=== PATIENT | male | born 1935 | race Caucasian/White ===

== ENCOUNTER → 2018-01-10 15:56 | Outpatient (CLI) | payer MEDICARE, OTHER, SELFPAY ==
--- NOTE | 2018-01-10 16:14 | RAD_ITS ---
STUDY: X-RAY CHEST REASON FOR EXAM: Male, 82 years old. Cough and congestion TECHNIQUE: Frontal and lateral views of the chest were obtained. COMPARISON: June 29, 2017 FINDINGS: The lungs are hyperinflated. Surgical changes are again seen in the mid and upper left lung. There are new ill-defined nodular densities in the mid left lung and right lung base. There is no demonstrated pleural abnormality. The cardiac silhouette is normal in size. There are surgical clips in the mediastinum. Sternotomy wires are present. Normal visualized pulmonary arteries. There is atherosclerotic calcification of the thoracic aorta. There are diffuse degenerative changes of the visualized spine. There are surgical changes in the cervical spine. There are degenerative changes in both shoulders. There is no demonstrated abnormality of the visualized upper abdomen. RAD/Chest PA and Lateral IMPRESSION: There is no evidence of focal consolidation or pleural effusion. There are indistinct nodular opacities in the mid left lung and right lung base which are not evident on the prior study. These are indeterminate. There is stable COPD. Electronically Signed: Gladis Peres MD at 17:23 EST Tel Direct: [phone], Service support ,
[2018-01-10 17:57] LABS: Absolute Lymphocyte Count 32.68 X10^3/ul (0.83-4.51); Absolute Neutrophil Count 5.2 X10^3/uL (2.0-7.7); Anion Gap 10 (5-15); BUN 20 mg/dL (7-18); BUN/Creat Ratio 20.6 RATIO (10-20); Basophil# 0.03 X10^3/uL; Basophil% 0.1 % (0-1); Calcium,Total 9.2 mg/dL (8.5-10.1); Chloride 98 mmol/L (98-107); Creatinine, Serum 0.97 mg/dL (0.70-1.30); EST Glomerular Filtration Rate 79 mL/min (>60); Eosinophil# 0.08 X10^3/uL; Eosinophils% 0.2 % (0-5); Est Glom Filt Rate - Afr Amer 95 mL/min (>60); Glucose 215 mg/dL (74-106); Hematocrit 35.6 % (40-54); Hemoglobin 11.5 g/dl (13.0-16.5); Lymphocyte # 32.68 X10^3/ul (4.0); Lymphocyte % 83.7 % (19-41); Mean Corp Hgb Conc 32.3 g/gl (32-36); Mean Corpuscular Hgb 31.1 pg (27.0-32.0); Mean Corpuscular Volume 96.2 fL (80-94); Mean Platelet Vol. 9.6 fl (6.2-12.0); Monocyte# 0.97 X10^3/uL; Monocyte% 2.5 % (0-10); Neutrophil # 5.23 X10^3/uL (2.7-7.7); Neutrophil % 13.4 % (47-70); Platelet Count 264 K/mm3 (150-450); Potassium 4.1 mmol/L (3.5-5.1); RBC Distribution Width CV 15.2 % (11.6-14.6); RBC Distribution Width SD 53.3 fl (35.1-43.9); Sodium Level 135 mmol/L (136-145)
[2018-01-10 18:01] LABS: Differential Indicated SCAN CRITERIA MET; POSITIVE COUNT YES; POSITIVE DIFFERENTIAL YES; POSITIVE MORPHOLOGY YES
[2018-01-12 14:50] LABS: Pathologist Review Reviewed
== END ==
PROVIDERS: Family Provider Family Medicine Geriatric Medicine; PCP Family Medicine Geriatric Medicine; Visit Provider Family Medicine Geriatric Medicine
DX: E86.0 Dehydration (principal); R68.83 Chills (without fever)
CPT/HCPCS: 36415; 71046; 80048; 85025; 87633

== ENCOUNTER → 2018-01-11 09:27 | Outpatient (CLI) | payer MEDICARE, OTHER, SELFPAY ==
--- NOTE | 2018-01-11 09:30 | CT_ITS ---
STUDY: CT CHEST WITHOUT CONTRAST REASON FOR EXAM: Male, 82 years old. Follow-up of pulmonary mass. RADIATION DOSAGE (If Supplied By Facility): CTDIvol = ( 8.98 ) mGy, DLP = ( 368.12 ) mGycm TECHNIQUE: Transaxial imaging was performed without the administration of intravenous contrast material. Multiplanar coronal and sagittal images were reformatted. Individualized dose optimization techniques were used for this CT. COMPARISON: CT of the chest dated January 27, 2017. FINDINGS: The patient has had a sternotomy. There is hyperinflation of the lungs consistent with chronic obstructive lung disease (COPD). There is a focal opacity within the right lower lobe that measures approximately 1.7 cm in greatest dimension. There is a second nodular area within the right lower lobe measuring up to 1.5 cm in greatest dimension. These are new since the previous CT. These could be neoplastic or postinflammatory. There are patchy lucencies throughout both lungs probably related to centrilobular emphysema. Curvilinear opacities are visible in the left lower lobe that are probably related to pulmonary fibrosis. There are nodular opacities in the left lower lobe that may represent reticulonodular interstitial thickening. This is also new since the previous CT. There are nodular areas in the lingula that may be associated with some bronchiectasis. There is a spiculated nodule left upper lobe measuring 10.5 mm in greatest dimension. There is no demonstrated pleural abnormality. There are calcifications of the coronary arteries. There are multiple prominent mediastinal lymph nodes. A precarinal node is partially calcified. Normal hilar regions. There is prominence of the pulmonary hilar arteries without peripheral pulmonary vascular congestion, suggesting pulmonary hypertension. There is atherosclerotic calcification of the aortic arch with tortuosity and elongation of the aortic arch and descending thoracic aorta. Maximum transverse dimension of ascending thoracic aorta measures approximately 3.9 cm. There is increased thoracic kyphosis. There is multilevel thoracic spondylosis. Patient has had a sternotomy. Is an exophytic cyst arising from the posterior cortex of the left kidney measuring approximately 1.7 cm in greatest dimension. CT/Chest without Contrast IMPRESSION: 1. Multiple nodular opacities visible in the right lower lobe, and left upper lobe. These are new since the previous study. 2. Reticulonodular interstitial thickening in left lower lobe may be the result of inflammatory process such as atypical mycobacterial infection. 3. COPD. 4. Sequela of coronary artery vascular disease. Electronically Signed: Ana Hickman MD at 10:27 EST , Service support ,
== END ==
PROVIDERS: Family Provider Family Medicine Geriatric Medicine; PCP Family Medicine Geriatric Medicine; Visit Provider Family Medicine Geriatric Medicine
DX: R91.8 Other nonspecific abnormal finding of lung field (principal); J44.9 Chronic obstructive pulmonary disease, unspecified
CPT/HCPCS: 71250

== ENCOUNTER → 2018-01-23 07:11 | Outpatient (CLI) | payer MEDICARE, OTHER, SELFPAY ==
--- NOTE | 2018-01-23 07:00 | PET_ITS ---
EXAMINATION: FDG PET CT INDICATIONS: An 82-year-old male with reported history of pulmonary nodularity presenting for restaging examination. COMPARISON EXAMINATION: CT of the chest report dated 01/11/18, previous FDG PET CT study dated 05/29/16. INDEX LESION SIZE SUV INTERPRETATION NEW: Left lower hemithorax pulmonary parenchyma, left lower lobe periaortic 5.8 mm (frame 175) 3.2 Fulfills quantitative criteria for viable neoplasm, definitive histopathologic analysis is recommended PREVIOUS: Heterogeneous left mid posterior lung field, left lower lobe Demonstrates metabolic resolution on the current examination NEW: Bilateral hemithorax pulmonary parenchyma-additional 1.7 (max) Quantitative criteria for viable neoplasm are not fulfilled TECHNIQUE: Following the intravenous administration of 12.89 mCi of F-18 deoxyglucose via the right antecubital fossa, multiplanar image acquisitions of the neck, chest, abdomen and pelvis to level of mid thigh, obtained at one hour post radiopharmaceutical administration contemporaneously interpreted with the current CT of the neck, chest, abdomen and pelvis to level of mid thigh, dated 01/23/[address] of the chest report dated 01/11/18, previous FDG PET CT study dated 05/29/16 reveal: SERUM GLUCOSE LEVEL: 70 mg/dl. HEIGHT: 72 inches. WEIGHT: 140 lbs. FINDINGS: 1. Several foci of increased glucose metabolism are manifest in the left hemithorax pulmonary parenchyma, left lower posteromedial lung zone, periaortic in location, left lower lobe. The calculated maximum standard uptake value is 3.2. The maximal axial diameter of the corresponding parenchymal density on review of CT of the thorax dated 01/23/18 is 5.8 mm. 2. Additional foci of increased glucose concentration are newly apparent in the right and left lung francisco rendering a calculated maximum standard uptake value of 1.7. Quantitative criteria for viable neoplasm are not fulfilled. 3. Normal physiologic distribution of the radiopharmaceutical is apparent in the hepatic (2.2/2.3) and splenic parenchyma, both renal units, bladder and visualized intestinal tract. There is uniform distribution of the radiopharmaceutical concentration compared on the cerebellar hemispheres and cerebral cortex. Diffuse intestinal tract activity is noted throughout all four quadrants of the abdominal-pelvic retroperitoneum, mesentery consistent with normal physiologic distribution of the radiopharmaceutical. The previous identified heterogeneous enhanced glucose metabolism manifest in the left lower posterior lung field, left lower lobe described on the FDG PET study dated 05/29/16 is not apparent on the current examination. Pertinent CT findings are as follows. CHEST: Atherosclerotic calcification is defined in the thoracic aorta without evidence of dilatation, aneurysm formation. Emphysematous change is noted in the bilateral upper lung zones. Additional parenchymal densities defined in the right-left hemithorax demonstrate minimally increased glucose metabolism as previously described. Atherosclerotic calcification is defined in the thoracic aorta without evidence of dilatation, aneurysm formation. Coronary arterial calcification is observed. Right-left subcentimeter axillary soft tissue densities reveal no evidence of facilitated glucose metabolism. Ventricular pacemaker placement is defined. Scattered mediastinal soft tissue densities demonstrate calcification. ABDOMEN AND PELVIS: Atherosclerotic calcification is defined in the abdominal aorta without evidence of dilatation, aneurysm formation. Pelvic arterial calcification is defined. The prostate gland demonstrates no apparent evidence of increased glucose metabolism. SKELETAL: Degenerative changes defined in the cervical, thoracic and lumbar spine demonstrate no evidence for glucose hypermetabolism. IMPRESSION: 1. Focal increased glucose concentration newly defined in the left lower posteromedial lung zone, left lower lobe adjacent to the descending thoracic aorta may warrant histopathologic investigation secondary to the quantitative degree of uptake. (Fonseca et al, Annals of Internal Medicine, 138:724, 2003). 2. Additional foci of increased glucose concentration manifest in the right and left hemithorax pulmonary parenchyma do not fulfill quantitative criteria for viable neoplasm. (Fonseca et al, Annals of Internal Medicine, 138:724, 2003). 3. Metabolic and/or anatomic stability may be ensured in the remaining bilateral hemithorax pulmonary parenchymal abnormalities with repeat FDG PET study and/or CT of the thorax in three months. (Xiu, Journal of Nuclear Medicine 45:88, P2004. Дмитрий, Seminars in Thoracic and Cardiovascular Surgery 14:292, 2002). 4. There interim metabolic resolution of the prior defined left lower posterior lung zone, left lower lobe hypermetabolic abnormality. 5. Overall compared to the previous FDG PET-CT study dated 05/29/2016, the newly identified left lower lobe hypermetabolic abnormality may warrant histopathologic analysis as described above. Electronic Signature Neymar Blevins D.O. Electronically Signed: Neymar Blevins DO at 22:39 EST Tel , Service support , EXAMINATION: FDG PET CT INDICATIONS: An 82-year-old male with reported history of pulmonary nodularity presenting for restaging examination. COMPARISON EXAMINATION: CT of the chest report dated 01/11/18, previous FDG PET CT study dated 05/29/16. INDEX LESION SIZE SUV INTERPRETATION NEW: Left lower hemithorax pulmonary parenchyma, left lower lobe periaortic 5.8 mm (frame 175) 3.2 Fulfills quantitative criteria for viable neoplasm, definitive histopathologic analysis is recommended PREVIOUS: Heterogeneous left mid posterior lung field, left lower lobe Demonstrates metabolic resolution on the current examination NEW: Bilateral hemithorax pulmonary parenchyma-additional 1.7 (max) Quantitative criteria for viable neoplasm are not fulfilled TECHNIQUE: Following the intravenous administration of 12.89 mCi of F-18 deoxyglucose via the right antecubital fossa, multiplanar image acquisitions of the neck, chest, abdomen and pelvis to level of mid thigh, obtained at one hour post radiopharmaceutical administration contemporaneously interpreted with the current CT of the neck, chest, abdomen and pelvis to level of mid thigh, dated 01/23/[address] of the chest report dated 01/11/18, previous FDG PET CT study dated 05/29/16 reveal: SERUM GLUCOSE LEVEL: 70 mg/dl. HEIGHT: 72 inches. WEIGHT: 140 lbs. FINDINGS: 1. Several foci of increased glucose metabolism are manifest in the left hemithorax pulmonary parenchyma, left lower posteromedial lung zone, periaortic in location, left lower lobe. The calculated maximum standard uptake value is 3.2. The maximal axial diameter of the corresponding parenchymal density on review of CT of the thorax dated 01/23/18 is 5.8 mm. 2. Additional foci of increased glucose concentration are newly apparent in the right and left lung francisco rendering a calculated maximum standard uptake value of 1.7. Quantitative criteria for viable neoplasm are not fulfilled. 3. Normal physiologic distribution of the radiopharmaceutical is apparent in the hepatic (2.2/2.3) and splenic parenchyma, both renal units, bladder and visualized intestinal tract. There is uniform distribution of the radiopharmaceutical concentration compared on the cerebellar hemispheres and cerebral cortex. Diffuse intestinal tract activity is noted throughout all four quadrants of the abdominal-pelvic retroperitoneum, mesentery consistent with normal physiologic distribution of the radiopharmaceutical. The previous identified heterogeneous enhanced glucose metabolism manifest in the left lower posterior lung field, left lower lobe described on the FDG PET study dated 05/29/16 is not apparent on the current examination. Pertinent CT findings are as follows. CHEST: Atherosclerotic calcification is defined in the thoracic aorta without evidence of dilatation, aneurysm formation. Emphysematous change is noted in the bilateral upper lung zones. Additional parenchymal densities defined in the right-left hemithorax demonstrate minimally increased glucose metabolism as previously described. Atherosclerotic calcification is defined in the thoracic aorta without evidence of dilatation, aneurysm formation. Coronary arterial calcification is observed. Right-left subcentimeter axillary soft tissue densities reveal no evidence of facilitated glucose metabolism. Ventricular pacemaker placement is defined. Scattered mediastinal soft tissue densities demonstrate calcification. ABDOMEN AND PELVIS: Atherosclerotic calcification is defined in the abdominal aorta without evidence of dilatation, aneurysm formation. Pelvic arterial calcification is defined. The prostate gland demonstrates no apparent evidence of increased glucose metabolism. SKELETAL: Degenerative changes defined in the cervical, thoracic and lumbar spine demonstrate no evidence for glucose hypermetabolism. PET/PET/CT Tumor Base -Thigh Init IMPRESSION: 1. Focal increased glucose concentration newly defined in the left lower posteromedial lung zone, left lower lobe adjacent to the descending thoracic aorta may warrant histopathologic investigation secondary to the quantitative degree of uptake. (Fonseca et al, Annals of Internal Medicine, 138:724, 2003). 2. Additional foci of increased glucose concentration manifest in the right and left hemithorax pulmonary parenchyma do not fulfill quantitative criteria for viable neoplasm. (Fonseca et al, Annals of Internal Medicine, 138:724, 2003). 3. Metabolic and/or anatomic stability may be ensured in the remaining bilateral hemithorax pulmonary parenchymal abnormalities with repeat FDG PET study and/or CT of the thorax in three months. (Xiu, Journal of Nuclear Medicine 45:88, P2004. Дмитрий, Seminars in Thoracic and Cardiovascular Surgery 14:292, 2002). 4. There interim metabolic resolution of the prior defined left lower posterior lung zone, left lower lobe hypermetabolic abnormality. 5. Overall compared to the previous FDG PET CT study dated 05/29/2016, the increase in glucose metabolism newly identified in the left lower posterior medial lung field warrants histopathologic evaluation. Electronic Signature Neymar Blevins D.O. Electronically Signed: Neymar Blevins DO at 22:44 EST Tel , Service support ,
== END ==
PROVIDERS: Family Provider Family Medicine Geriatric Medicine; PCP Family Medicine Geriatric Medicine; Visit Provider Family Medicine Geriatric Medicine
DX: R91.1 Solitary pulmonary nodule (principal)
CPT/HCPCS: 78815; A9552; A4216

== ENCOUNTER → 2018-01-24 11:40 | Outpatient (CLI) | payer MEDICARE, OTHER, SELFPAY ==
[2018-01-24 14:06] LABS: Absolute Lymphocyte Count 53.75 X10^3/ul (0.83-4.51); Absolute Neutrophil Count 5.8 X10^3/uL (2.0-7.7); Basophil# 0.07 X10^3/uL; Basophil% 0.1 % (0-1); Eosinophils% 0.2 % (0-5); Hematocrit 36.6 % (40-54); Hemoglobin 11.5 g/dl (13.0-16.5); Lymphocyte # 53.75 X10^3/ul (4.0); Lymphocyte % 87.6 % (19-41); Mean Corp Hgb Conc 31.4 g/gl (32-36); Mean Corpuscular Hgb 30.5 pg (27.0-32.0); Mean Corpuscular Volume 97.1 fL (80-94); Mean Platelet Vol. 9.7 fl (6.2-12.0); Monocyte# 1.46 X10^3/uL; Monocyte% 2.4 % (0-10); Neutrophil # 5.84 X10^3/uL (2.7-7.7); Neutrophil % 9.5 % (47-70); Platelet Count 196 K/mm3 (150-450); RBC Distribution Width CV 15.8 % (11.6-14.6); RBC Distribution Width SD 55.4 fl (35.1-43.9); Red Blood Count 3.77 M/mm3 (4.6-6.2)
[2018-01-24 14:08] LABS: Differential Indicated SCAN CRITERIA MET; POSITIVE COUNT YES; POSITIVE DIFFERENTIAL YES; POSITIVE MORPHOLOGY YES
[2018-01-24 14:22] LABS: ALB/GLOB Ratio 0.8 RATIO (0.9-2.4); AST(SGOT) 27 U/L (15-37); Alanine Aminotransfer ALT/SGPT 40 U/L (16-61); Albumin, Serum 3.3 g/dL (3.2-5.0); Alkaline Phosphatase 87 U/L (45-117); Anion Gap 10 (5-15); BUN 20 mg/dL (7-18); BUN/Creat Ratio 21.4 RATIO (10-20); Chloride 100 mmol/L (98-107); Creatinine, Serum 0.94 mg/dL (0.70-1.30); EST Glomerular Filtration Rate 82 mL/min (>60); Est Glom Filt Rate - Afr Amer 99 mL/min (>60); Globulin 4.4 g/dL (2.2-4.2); Glucose 155 mg/dL (74-106); Protein, Total 7.7 g/dL (6.4-8.2); Sodium Level 137 mmol/L (136-145); Thyroid Stim Hormone (TSH) 0.97 uIU/mL (0.358-3.74)
[2018-01-24 14:50] LABS: White Blood Count 61.3 K/mm3 (4.4-11.0)
[2018-01-25 15:16] LABS: Pathologist Review Reviewed
== END ==
PROVIDERS: Family Provider Family Medicine Geriatric Medicine; PCP Family Medicine Geriatric Medicine; Visit Provider Family Medicine Geriatric Medicine
DX: E11.9 Type 2 diabetes mellitus without complications (principal); I10 Essential (primary) hypertension
CPT/HCPCS: 36415; 80053; 84443; 85025

== ENCOUNTER 2018-02-01 12:14 | Emergency (ER) | payer MEDICARE, OTHER, SELFPAY ==
[2018-02-01 12:15] VITALS: BP 119/81; PULSE 150; RESP 24; TEMP 36.5; O2SAT 96; BMI 18.4
[2018-02-01 12:42] VITALS: BP 108/66; PULSE 155; RESP 17; O2SAT 97
--- NOTE | 2018-02-01 12:51 | EKG12_ITS ---
Test Reason : TACHYCARDIC Blood Pressure : / mmHG Vent. Rate : 154 BPM Atrial Rate : 153 BPM P-R Int : 000 ms QRS Dur : 074 ms QT Int : 278 ms P-R-T Axes : 000 072 049 degrees QTc Int : 445 ms Supraventricular tachycardia Nonspecific ST abnormality Abnormal ECG Confirmed by SHASTA ARREOLA, WILL ([id number]), copy editor JOSE ENRIQUE WILEY ([id number]) on 02/06/2018 1:59:51 PM Referred By: Confirmed By:WILL VEGAS MD
[2018-02-01 13:12] LABS: Absolute Lymphocyte Count 30.22 X10^3/ul (0.83-4.51); Absolute Neutrophil Count 3.8 X10^3/uL (2.0-7.7); Basophil# 0.03 X10^3/uL; Basophil% 0.1 % (0-1); Eosinophils% 0.3 % (0-5); Hematocrit 33.1 % (40-54); Hemoglobin 10.5 g/dl (13.0-16.5); Lymphocyte # 30.22 X10^3/ul (4.0); Lymphocyte % 87.2 % (19-41); Mean Corp Hgb Conc 31.7 g/gl (32-36); Mean Corpuscular Hgb 30.3 pg (27.0-32.0); Mean Corpuscular Volume 95.4 fL (80-94); Mean Platelet Vol. 9.6 fl (6.2-12.0); Monocyte# 0.46 X10^3/uL; Monocyte% 1.3 % (0-10); Platelet Count 139 K/mm3 (150-450); RBC Distribution Width CV 15.5 % (11.6-14.6); RBC Distribution Width SD 53.6 fl (35.1-43.9); Red Blood Count 3.47 M/mm3 (4.6-6.2)
[2018-02-01 13:13] LABS: Anion Gap 8 (5-15); BUN 22 mg/dL (7-18); BUN/Creat Ratio 23.7 RATIO (10-20); Calcium,Total 8.7 mg/dL (8.5-10.1); Chloride 102 mmol/L (98-107); Creatinine, Serum 0.93 mg/dL (0.70-1.30); EST Glomerular Filtration Rate 83 mL/min (>60); Est Glom Filt Rate - Afr Amer 100 mL/min (>60); Estimated Creatinine Clearance 52.51 ml/min; Glucose 166 mg/dL (74-106); Potassium 4.7 mmol/L (3.5-5.1); Sodium Level 135 mmol/L (136-145)
[2018-02-01 13:15] LABS: Differential Indicated SCAN CRITERIA MET; POSITIVE COUNT YES; POSITIVE DIFFERENTIAL YES; POSITIVE MORPHOLOGY NO; White Blood Count 34.7 K/mm3 (4.4-11.0)
[2018-02-01 13:20] VITALS: BP 114/77; PULSE 121; RESP 21; O2SAT 96
--- NOTE | 2018-02-01 13:28 | RAD_ITS ---
STUDY: X-RAY CHEST REASON FOR EXAM: Male, 82 years old. Tachycardia. History of chronic leukemia. TECHNIQUE: PA and lateral views of the chest. COMPARISON: Comparison is made with prior study dated January 10, 2018. FINDINGS: EKG electrode are seen. Hyperinflation. Stable increased markings in the lingular segment of the left upper lobe suggestive of scarring. Cc nodular densities in the left lung and right lower lobe have decreased in size. No new nodule is seen. There is no demonstrated pleural abnormality. Sternal cerclage wires and vascular clips are present from a prior sternotomy and coronary artery bypass graft procedure (CABG). Normal mediastinum and milo. Normal visualized pulmonary arteries. There is atherosclerotic calcification of the aortic arch with tortuosity. There are diffuse degenerative changes of the visualized thoracic spine. Prior laminectomy and fusion in the lower cervical spine. There is no demonstrated abnormality of the visualized soft tissue structures of the upper abdomen. RAD/Chest PA and Lateral IMPRESSION: Hyperinflation. Lingular scarring. The previously seen nodular densities have decreased in size. Electronically Signed: Anthony Boyd MD at 14:15 EST Tel [phone], Service support ,
--- NOTE | 2018-02-01 13:28 | EKG12_ITS ---
Test Reason : REPEAT Blood Pressure : / mmHG Vent. Rate : 117 BPM Atrial Rate : 117 BPM P-R Int : 142 ms QRS Dur : 082 ms QT Int : 324 ms P-R-T Axes : 063 070 045 degrees QTc Int : 451 ms Sinus tachycardia Otherwise normal ECG Confirmed by WILL VEGAS MD ([id number]), managing editor JOSE ENRIQUE WILEY ([id number]) on 02/06/2018 2:02:26 PM Referred By: ED Confirmed By:WILL VEGAS MD
[2018-02-01 13:37] LABS: Atypical Lymphocyte 1+ %
[2018-02-01 13:38] LABS: Differential Comment SCANNED
[2018-02-01 14:03] VITALS: BP 103/64; PULSE 117; RESP 20; O2SAT 95
[2018-02-01 15:00] VITALS: BP 121/68; PULSE 118; RESP 15; O2SAT 98
--- NOTE | 2018-02-01 15:09 | ED.VISSUMM ---
- ER Visit Summary Date of Service: 02/01/18 Chief Complaint: Sent from [facility] for rapid heart rate. History of Present Illness: The patient is a 82 M who has history of B-cell CLL and gammaglobulin anemia who was receiving IVIG when his heart rate became rapid. He complained of shortness of breath with the rapid heart rate. He denied any chest pressure or heaviness. He denies any leg pain, swelling discoloration. Does have history of PE. He does have cough which is nonproductive. He underwent lung resection for histoplasmosis and was receiving antifungal medication directed by Dr. Nano Cottrell. He does have history of coronary disease. There is also history of COPD, hypercholesterolemia, paroxysmal atrial fibrillation and iron deficiency anemia. He denies fever, chills night sweats. He does report weight loss. He denies any visual, ocular or auditory symptoms. He denies any GI, or musculoskeletal symptoms. He denies any rash or skin lesions. He does complain of generalized weakness. He denies bruising easily or any allergic reactions. Physical Examination: Patient's heart rate is 153 with rest rate of 22. Blood pressure is 135/75. He is not febrile nor is he hypoxic. Does appear pale. HEENT exam is remarkable for pale conjunctival. Lungs reveal rales throughout. Heart is rapid and regular. Abdomen is soft nontender. His lower extremity exam is unremarkable i.e. There is no asymmetry, swelling, discoloration, leg vein distention, palpable cords or tenderness along the distribution of the deep venous system. Neuro exam is nonfocal. Test Results: First EKG reveals a narrow complex tachycardia with a rate of 154. White count is 34.7 thousand with 87% lymphocytes secondary to his CLL. H&H 10.5 and 33.1. Electrode panel is remarkable for glucose 166 and BUN of 22. Two-view chest x-ray reveals chronic scarring hyperaeration unchanged from prior. Nodules were noted. Radiologist commented the nodules are smaller than prior. Emergency Department Course and Treatment: EKG was obtained which revealed a narrow complex tachycardia with a rate of 153. Repeat EKG was obtained after he coughed and he has now in a sinus tachycardia. Rate is 115. Because of his history of histoplasmosis cough and rales chest x-ray was obtained. Electrode panel was obtained since he is tachycardic. Treatment Plan: She now is a sinus rhythm chemically stable he will be discharged to return to the infusion center to continue his treatment. Disposition: Charge to infusion center Impression: 1. Narrow complex tachycardia, PSVT 2. History of B-cell chronic lymphocytic leukemia 3. History of gamma, anemia 4. History of COPD 5. History of coronary disease 6. History of paroxysmal H fibrillation This note was generated with [employer] dictation software. It may contain incorrect words, spelling, and punctuation that were not noted in review of the chart prior to signing ED Disposition - Plan for ED Patient: Disposition: Home or Assisted Living Chief Complaint: Palpitations Instructions: ED Tachycardia Pat PSVT Referrals: Chester Rojas Chi, MD [Primary Care Provider] - 3-5 Days
--- NOTE | 2018-02-01 15:16 | ED.DCSUM_ITS ---
- ER Visit Summary Date of Service: 02/01/18 Chief Complaint: Sent from [facility] center for rapid heart rate. History of Present Illness: The patient is a 82 M who has history of B-cell CLL and gammaglobulin anemia who was receiving IVIG when his heart rate became rapid. He complained of shortness of breath with the rapid heart rate. He denied any chest pressure or heaviness. He denies any leg pain, swelling discoloration. Does have history of PE. He does have cough which is nonproductive. He underwent lung resection for histoplasmosis and was receiving antifungal medication directed by Dr. Nano Cottrell. He does have history of coronary disease. There is also history of COPD, hypercholesterolemia, paroxysmal atrial fibrillation and iron deficiency anemia. He denies fever, chills night sweats. He does report weight loss. He denies any visual, ocular or auditory symptoms. He denies any GI, or musculoskeletal symptoms. He denies any rash or skin lesions. He does complain of generalized weakness. He denies bruising easily or any allergic reactions. Physical Examination: Patient's heart rate is 153 with rest rate of 22. Blood pressure is 135/75. He is not febrile nor is he hypoxic. Does appear pale. HEENT exam is remarkable for pale conjunctival. Lungs reveal rales throughout. Heart is rapid and regular. Abdomen is soft nontender. His lower extremity exam is unremarkable i.e. There is no asymmetry, swelling, discoloration, leg vein distention, palpable cords or tenderness along the distribution of the deep venous system. Neuro exam is nonfocal. Test Results: First EKG reveals a narrow complex tachycardia with a rate of 154. White count is 34.7 thousand with 87% lymphocytes secondary to his CLL. H &H 10.5 and 33.1. Electrode panel is remarkable for glucose 166 and BUN of 22. Two-view chest x-ray reveals chronic scarring hyperaeration unchanged from prior. Nodules were noted. Radiologist commented the nodules are smaller than prior. Emergency Department Course and Treatment: EKG was obtained which revealed a narrow complex tachycardia with a rate of 153. Repeat EKG was obtained after he coughed and he has now in a sinus tachycardia. Rate is 115. Because of his history of histoplasmosis cough and rales chest x-ray was obtained. Electrode panel was obtained since he is tachycardic. Treatment Plan: She now is a sinus rhythm chemically stable he will be discharged to return to the infusion center to continue his treatment. Disposition: Charge to infusion center Impression: 1. Narrow complex tachycardia, PSVT 2. History of B-cell chronic lymphocytic leukemia 3. History of gamma, anemia 4. History of COPD 5. History of coronary disease 6. History of paroxysmal H fibrillation This note was generated with [employer] dictation software. It may contain incorrect words, spelling, and punctuation that were not noted in review of the chart prior to signing ED Disposition - Plan for ED Patient: Disposition: Home or Assisted Living Chief Complaint: Palpitations Instructions: ED Tachycardia Pat PSVT Referrals: Chester Rojas Chi, MD [Primary Care Provider] - 3-5 Days
[2018-02-01 15:28] VITALS: BP 121/68; PULSE 117; RESP 18; O2SAT 96
--- NOTE | 2018-02-01 15:29 | ED.RN ---
REVIEWED D/C INSTRUCTIONS, FOLLOW UP CARE, AND S/S THAT WOULD WARRANT A RETURN TO THE ED WITH PT. PT VERBALIZED AN UNDERSTANDING AND DENIES FURTHER QUESTIONS FOR THIS RN. PT SKIN P/W/D, REPS EVEN AND UNLABORED, PT A&O X 3, NO DISTRESS NOTED. PT ASSISTED OUT OF ED BY VIDEO NETWORK ENGINEER FOR TRANSPORT TO INFUSION CENTER.
[2018-02-02 14:11] LABS: Pathologist Review Reviewed
== END 2018-02-01 15:31 | disposition home or self-care (01) ==
PROVIDERS: Emergency Provider Emergency Medicine; Family Provider Family Medicine Geriatric Medicine; PCP Family Medicine Geriatric Medicine
DX: I47.1 Supraventricular tachycardia (principal); C91.10 Chronic lymphocytic leukemia of B-cell type not having achieved remission; D50.9 Iron deficiency anemia, unspecified; J44.9 Chronic obstructive pulmonary disease, unspecified; I25.10 Atherosclerotic heart disease of native coronary artery without angina pectoris; I48.0 Paroxysmal atrial fibrillation; E78.00 Pure hypercholesterolemia, unspecified; B39.9 Histoplasmosis, unspecified; Z90.2 Acquired absence of lung [part of]; Z86.711 Personal history of pulmonary embolism; Z79.01 Long term (current) use of anticoagulants; Z79.899 Other long term (current) drug therapy; Z95.1 Presence of aortocoronary bypass graft; Z72.0 Tobacco use
CPT/HCPCS: 71046; 80048; 85025; 93005; 99282; A4216

== ENCOUNTER → 2018-02-08 16:04 | Outpatient (CLI) | payer MEDICARE, OTHER, SELFPAY ==
--- NOTE | 2018-02-08 17:21 | RAD_ITS ---
STUDY: X-RAY CHEST REASON FOR EXAM: Male, 82 years old. Bronchitis, shortness of breath and cough. TECHNIQUE: PA and lateral views of the chest. COMPARISON: February 01, 2018. FINDINGS: Patient has had a sternotomy. There is hyperinflation of the lungs consistent with chronic obstructive lung disease (COPD). There is no demonstrated pleural abnormality. Normal size heart. Normal mediastinum and milo. Normal visualized pulmonary arteries. There is atherosclerotic calcification of the aortic arch with tortuosity. There is demineralization of the osseous structures. There are degenerative changes of both shoulders. Patient has had previous cervical spine surgery. There is no demonstrated abnormality of the visualized soft tissue structures of the upper abdomen. RAD/Chest PA and Lateral IMPRESSION: COPD without radiographic evidence of acute cardiopulmonary disease. Electronically Signed: Ana Hickman MD at 18:08 EDT , Service support ,
== END ==
PROVIDERS: Family Provider Family Medicine Geriatric Medicine; PCP Family Medicine Geriatric Medicine; Visit Provider Family Medicine Geriatric Medicine
DX: N39.0 Urinary tract infection, site not specified (principal); R68.83 Chills (without fever)
CPT/HCPCS: 71046; 87070; 87077; 87186; 87205; 87633

== ENCOUNTER → 2018-02-20 16:57 | Outpatient (CLI) | payer MEDICARE, OTHER, SELFPAY ==
--- NOTE | 2018-02-20 17:30 | RAD_ITS ---
STUDY: X-RAY CHEST REASON FOR EXAM: Male, 82 years old. Cough TECHNIQUE: PA and lateral views of the chest. COMPARISON: None. FINDINGS: Mild patchy airspace infiltration at the left midlung base which is new. There is underlying prominence of interstitial lung markings throughout both lungs which is unchanged. No pleural effusion or pneumothorax. Normal size heart. Median sternotomy wires and coronary artery bypass graft clips noted. Normal mediastinum and milo. Normal visualized pulmonary arteries. There is atherosclerotic calcification of the aortic arch. There are diffuse degenerative changes of the visualized thoracic spine. Normal visualized ribs, clavicles, and shoulders. Cervical spinal fusion is mentation noted. There is no demonstrated abnormality of the visualized soft tissue structures of the upper abdomen. RAD/Chest PA and Lateral IMPRESSION: Left basilar atelectasis versus infiltrate superimposed upon chronic bibasilar interstitial change. Electronically Signed: Franklin Napoles MD at 4:38 EDT Tel , Service support ,
== END ==
PROVIDERS: Family Provider Family Medicine Geriatric Medicine; PCP Family Medicine Geriatric Medicine; Visit Provider Family Medicine Geriatric Medicine
DX: J40 Bronchitis, not specified as acute or chronic (principal); R68.83 Chills (without fever)
CPT/HCPCS: 36415; 71046; 87070; 87077; 87186; 87205; 87633

== ENCOUNTER → 2018-04-13 10:05 | Outpatient (CLI) | payer MEDICARE, OTHER, SELFPAY | PROVIDERS: Family Provider Family Medicine Geriatric Medicine; PCP Family Medicine Geriatric Medicine; Visit Provider Family Medicine Geriatric Medicine | DX: E11.9 Type 2 diabetes mellitus without complications (principal); E55.9 Vitamin D deficiency, unspecified; I10 Essential (primary) hypertension ==

== ENCOUNTER 2018-04-26 12:50 | Outpatient (RCR) | payer SELFPAY ==
[2018-04-26 13:40] VITALS: BP 124/80; PULSE 79; RESP 16; TEMP 35.6
--- NOTE | 2018-04-26 15:28 | HP.PCM_ITS ---
(1) Gangrene of right foot Status: Chronic Current Visit: Yes Code(s): I96 - Gangrene, not elsewhere classified (2) Gangrene of left foot Status: Chronic Current Visit: Yes Code(s): I96 - Gangrene, not elsewhere classified (3) Amputation of left foot with complication Status: Chronic Current Visit: Yes Qualifiers: Encounter type: sequela Qualified Code(s): S98.912S - Complete traumatic amputation of left foot, level unspecified, sequela Code(s): S98.912A - Complete traumatic amputation of left foot, level unspecified, initial encounter (4) Type 2 diabetes mellitus with diabetic polyneuropathy Status: Chronic Current Visit: Yes Code(s): E11.42 - Type 2 diabetes mellitus with diabetic polyneuropathy (5) Peripheral vascular disease Status: Chronic Current Visit: Yes Code(s): I73.9 - Peripheral vascular disease, unspecified (6) Malnutrition Status: Chronic Current Visit: Yes Code(s): E46 - Unspecified protein- calorie malnutrition (7) B-cell chronic lymphocytic leukemia Status: Chronic Current Visit: Yes Code(s): C91.10 - Chronic lymphocytic leukemia of B-cell type not having achieved remission (8) Afib Status: Chronic Current Visit: No Qualifiers: Code(s): I48.91 - Unspecified atrial fibrillation (9) Iron deficiency anemia Status: Chronic Current Visit: No Qualifiers: Code(s): D50.9 - Iron deficiency anemia, unspecified History of Present Illness Date of Service: 04/26/18 Chief Complaint: Gangrene to both feet History of Wound: This 82-year-old male presents with bilateral foot gangrene. He relates approximately 1 month ago he was diagnosed with sepsis secondary to wet gangrene of his left lower extremity. He was admitted to [facility] in which Dr. Renteria performed a transmetatarsal amputation with debridement and he was treated with IV antibiotics under the management of infectious disease. He also relates he had some vascular surgery workup and intervention and he does not know the details. This was all completed at the [facility]. He denies current ongoing lower extremity pain. He is not a regular ambulator. His feet feel better when they are tingling down. He denies recent odor. He is with the family member today. He denies recent trauma. His primary care physician is Dr. Edwin Tyler MD. He does not have any special protective shoe gear. He has been applying Betadine to the right foot and Dakin solution to the left foot. He resides in a [place] [facility] facility at this time. 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) Skin cancer (Chronic) COPD (chronic obstructive pulmonary disease) (Chronic) Diabetes (Chronic) GERD (gastroesophageal reflux disease) (Chronic) Hyperlipidemia (Chronic) Thrombocytopenia (Chronic) Paroxysmal atrial flutter (Chronic) COPD (chronic obstructive pulmonary disease) (Chronic) CAD (coronary artery disease) (Chronic) CABG with GARCÍA to LAD, SVG to Dx and CFX 2007 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) Afib (Chronic) Iron deficiency anemia (Chronic) Hypogammaglobulinemia (Chronic) CLL (chronic lymphocytic leukemia) (Chronic) Past Medical History: Atrial flutter, sepsis recent history, muscle weakness, ordination issue, melena, atherosclerosis of coronary artery bypass with previous chest pain, hyperlipidemia, chronic obstructive pulmonary disease, diabetes with neuropathy, gastric esophageal reflux disease, esophagitis, other allergic rhinitis, and see above Surgical History: - Allergies/Adverse Reactions: Allergies hydrocodone bitartrate [From Vicodin] Allergy (Severe, Verified 04/26/18 14:27) Unknown CODED metaxalone [From Skelaxin] Allergy (Severe, Verified 04/26/18 14:27) Unknown CODED azithromycin Adverse Reaction (Severe, Verified 04/26/18 14:27) Unknown CANNOT REMEMBER Iodinated Contrast- Oral and IV Dye [CONTRASTS] Adverse Reaction (Severe, Verified 04/26/18 14:27) Hives aluminum Adverse Reaction (Verified 04/26/18 14:27) Rash sulfamethoxazole [From Bactrim] Adverse Reaction (Verified 04/26/18 14:27) Unknown CANNOT REMEMBER trimethoprim [From Bactrim] Adverse Reaction (Verified 04/26/18 14:27) Unknown CANNOT REMEMBER Home Medications: Ambulatory Orders Medication Instructions Recorded Metformin HCl [Glucophage] 1,000 mg PO BIDCM 02/25/16 Cyclobenzaprine [Flexeril] 10 mg PO QHS 11/17/16 Insulin Degludec [Tresiba 20 unit SQ QHS 11/17/16 Flextouch U-100] Zolpidem Tartrate [Ambien] 10 mg PO QHS 11/17/16 Colace 100 mg PO BID 05/25/17 Ferrous Sulfate [Iron] 325 mg PO TID 06/29/17 Metoprolol Tartrate [Lopressor 50 mg PO BID #60 tab 06/30/17 (beta gabriela)] Apixaban [Eliquis] 5 mg PO BID 07/20/17 Preservision Areds 2 Softgel 2 capsule PO DAILY 08/17/17 atorvastatin 40 mg tablet 40 mg PO QHS tab 01/17/18 finasteride 5 mg tablet 5 mg PO QDAY 01/17/18 magnesium oxide 400 mg tablet 400 mg PO QDAY tab 01/17/18 meloxicam 15 mg tablet 15 mg PO QDAY 01/17/18 Famciclovir [Famvir] 500 mg PO TID #3 tab 03/08/18 Itraconazole [Sporanox] 200 mg PO BID 03/08/18 - Family History Paternal Family History: Family History (Last Reviewed 03/13/18 @ 15:16 by Suzanna Holland) Brother Seizures Brother Heart disease Sister Myocardial infarction - - falther got killed in accident Sibling Family History: Family History (Last Reviewed 03/13/18 @ 15:16 by Suzanna Holland) Brother Seizures Brother Heart disease Sister Myocardial infarction - - brother had heart disease Smoking Status: Former smoker Tobacco Use: Non-smoker Review of Systems Constitutional: Reports: Weakness. Denies: Chills, Fever Cardiovascular: Reports: - - Rest pain. Denies: Chest Pain, Claudication Respiratory: Denies: Shortness of Breath Gastrointestinal: Denies: Nausea, Vomiting Skin: Reports: Skin Changes, Wounds Neurological: Reports: Incoordination, Numbness - Physical Exam Vital Signs Temp Pulse Resp BP 96.1 F L 79 16 124/80 H 04/26/18 13:40 04/26/18 13:40 04/26/18 13:40 04/26/18 13:40 General: Alert, Oriented x3, Cooperative HEENT: Atraumatic Extremities: No edema, Capillary Refill Less than 3 Seconds, No Calf Tenderness - Negative Weaver signs bilateral, Diminished Peripheral Pulses, - - Transmetatarsal amputation left lower extremity Skin: Ulcer/ Wound - No purulence, no erythema, streaking, no odor bilateral. The transmetatarsal amputation stump on the left foot does have eschar formation that extends to the dorsal part of the foot it appears to be well adhered and is possibly superficial. There is a small granular central region and I do not visualize any bone however this is a concern. The right foot has gangrenous changes to all digits which are dry and mummified in the gangrene extends to the forefoot. There is no maceration bilateral. There is no crepitus or bogginess on palpation bilateral., - - The skin is hairless and atrophic bilateral Wound Measurements and Assessment WC - Nurse 1 - General Ulcer Measurement Start: 04/26/18 13:31 Freq: Status: Active Protocol: Activity Type Activity Date Activity User E-Sign Co-Sign Detail Recorded Client Recorded Date Recorded By Document 04/26/18 13:40 DL [id number] 04/26/18 14:22 DL 04/26/18 13:40 Wound Center Nurse 1 [Ulcer Assessment] #7 R Lat Foot -Current Size (cm) - Length 1 -Current Size (cm) - Width 0.9 -Current Size (cm) - Depth 0.1 -Total Square Cm 0.9 -Photo Taken Yes -Classification - Thickness Unclassifiable (Eschar Covered ) -Exudate Amt None Present (0 %) -Wound Margin Distinct, Outline Attached -Granulation Amt None Present (0 %) -Necrosis Amt Large (67-100%) -Necrotic Tissue Type Eschar -Structure Exposed N/A -Texture (Tara-wound Skin Appearance) Induration -Moisture (Tara-wound Skin Appearance Dry/Scaly ) -Color (Tara-wound Skin Appearance) Hemosiderin Staining -Temperature (Tara-wound Skin No Abnormality Appearance) (Pt Warm) -Foul Odor after Cleansing No #6 Lat heel -Current Size (cm) - Length 1 -Current Size (cm) - Width 1 -Current Size (cm) - Depth 0.1 -Total Square Cm 1 -Photo Taken Yes -Classification - Thickness Unclassifiable (Eschar Covered ) -Exudate Amt None Present (0 %) -Wound Margin Distinct, Outline Attached -Granulation Amt None Present (0 %) -Structure Exposed N/A -Texture (Tara-wound Skin Appearance) Induration -Moisture (Tara-wound Skin Appearance Dry/Scaly ) -Color (Tara-wound Skin Appearance) Hemosiderin Staining -Temperature (Tara-wound Skin No Abnormality Appearance) (Pt Warm) -Tenderness on Palpation (Tara-wound No Skin Appearance) -Foul Odor after Cleansing No #5 R Post LE -Current Size (cm) - Length 2.4 -Current Size (cm) - Width 0.4 -Current Size (cm) - Depth 0.1 -Total Square Cm 0.96 -Photo Taken Yes -Exudate Amt Small (1-33%) -Exudate Type Serosanguineous -Wound Margin Flat & Intact -Granulation Amt Large (67-100%) -Granulation Quality [place] -Necrosis Amt Small (1-33%) -Necrotic Tissue Type Adherent Slough -Structure Exposed N/A -Texture (Tara-wound Skin Appearance) No Abnormality -Moisture (Tara-wound Skin Appearance No Abnormality ) -Color (Tara-wound Skin Appearance) Hemosiderin Staining -Temperature (Tara-wound Skin No Abnormality Appearance) (Pt Warm) -Tenderness on Palpation (Tara-wound No Skin Appearance) -Ulcer Cleansing Wound Cleanser -Foul Odor after Cleansing No #4 R Post Heel -Current Size (cm) - Length 4.6 -Current Size (cm) - Width 1.8 -Current Size (cm) - Depth 0.1 -Total Square Cm 8.28 -Photo Taken Yes -Classification - Thickness Unclassifiable (Eschar Covered ) -Classification - Howard Grading ( Grade 5 Diabetic Ulcer) -Exudate Amt None Present (0 %) -Wound Margin Distinct, Outline Attached -Granulation Amt None Present (0 %) -Necrosis Amt Large (67-100%) -Necrotic Tissue Type Eschar -Structure Exposed N/A -Texture (Tara-wound Skin Appearance) Localized Edema -Moisture (Tara-wound Skin Appearance No Abnormality ) -Color (Tara-wound Skin Appearance) Erythema Hemosiderin Staining -Temperature (Tara-wound Skin No Abnormality Appearance) (Pt Warm) -Foul Odor after Cleansing No #3 R Grt Toe -Current Size (cm) - Length 3 -Current Size (cm) - Width 3 -Current Size (cm) - Depth 0.1 -Total Square Cm 9 -Photo Taken Yes -Classification - Thickness Unclassifiable (Eschar Covered ) -Classification - Howard Grading ( Grade 5 Diabetic Ulcer) -Exudate Amt None Present (0 %) -Wound Margin Distinct, Outline Attached -Granulation Amt None Present (0 %) -Necrosis Amt Large (67-100%) -Necrotic Tissue Type Eschar -Structure Exposed N/A -Texture (Tara-wound Skin Appearance) Induration -Moisture (Tara-wound Skin Appearance Dry/Scaly ) -Color (Tara-wound Skin Appearance) Erythema -Temperature (Tara-wound Skin No Abnormality Appearance) (Pt Warm) -Tenderness on Palpation (Tara-wound No Skin Appearance) -Foul Odor after Cleansing No #2 R Foot/Toes Cluster -Current Size (cm) - Length 7 -Current Size (cm) - Width 6.2 -Current Size (cm) - Depth 0.1 -Total Square Cm 43.4 -Photo Taken Yes -Classification - Thickness Unclassifiable (Eschar Covered ) -Classification - Howard Grading ( Grade 5 Diabetic Ulcer) -Exudate Amt None Present (0 %) -Wound Margin Distinct, Outline Attached -Granulation Amt None Present (0 %) -Necrosis Amt Large (67-100%) -Necrotic Tissue Type Eschar -Structure Exposed Tendon N/A -Texture (Tara-wound Skin Appearance) Induration Localized Edema -Moisture (Tara-wound Skin Appearance No Abnormality ) -Color (Tara-wound Skin Appearance) Erythema Hemosiderin Staining -Temperature (Tara-wound Skin No Abnormality Appearance) (Pt Warm) -Tenderness on Palpation (Tara-wound No Skin Appearance) -Ulcer Cleansing Rinsed/ Irrigated with Saline -Foul Odor after Cleansing No #1 L Foot/Toes Amp Site -Current Size (cm) - Length 6.2 -Current Size (cm) - Width 12.2 -Current Size (cm) - Depth 0.1 -Total Square Cm 75.64 -Photo Taken Yes -Classification - Thickness Unclassifiable (Eschar Covered ) -Classification - Howard Grading ( Grade 5 Diabetic Ulcer) -Exudate Amt Small (1-33%) -Exudate Type Sanguineous -Wound Margin Distinct, Outline Attached -Granulation Amt None Present (0 %) -Necrotic Tissue Type Eschar -Structure Exposed Tendon -Texture (Tara-wound Skin Appearance) Induration Localized Edema -Moisture (Tara-wound Skin Appearance No Abnormality ) -Color (Tara-wound Skin Appearance) Erythema Hemosiderin Staining -Temperature (Tara-wound Skin No Abnormality Appearance) (Pt Warm) -Ulcer Cleansing Wound Cleanser -Foul Odor after Cleansing No WC - Nurse 2 - General Ulcer CM Notes Start: 04/26/18 13:31 Freq: Status: Active Protocol: Activity Type Activity Date Activity User E-Sign Co-Sign Detail Recorded Client Recorded Date Recorded By Document 04/26/18 15:24 [id number] 04/26/18 15:25 04/26/18 15:24 Wound Center Nurse 2 [Procedure/Treatment] #7 R Lat Foot -Correct Patient No -Correct Side, Site, Position No -Correct Procedure No -Procedure Performed No #6 Lat heel -Correct Patient No -Correct Side, Site, Position No -Correct Procedure No -Procedure Performed No #5 R Post LE -Correct Patient No -Correct Side, Site, Position No -Correct Procedure No -Procedure Performed No #4 R Post Heel -Correct Patient No -Correct Side, Site, Position No -Correct Procedure No -Procedure Performed No #3 R Grt Toe -Correct Patient No -Correct Side, Site, Position No -Correct Procedure No -Procedure Performed No #2 R Foot/Toes Cluster -Correct Patient No -Correct Side, Site, Position No -Correct Procedure No -Procedure Performed No #1 L Foot/Toes Amp Site -Correct Patient No -Correct Side, Site, Position No -Correct Procedure No -Procedure Performed No [See Physician Procedure note for Specifics] Pain Scale: 0-10 Numeric [Pain] -Is Patient Pain Free? Yes Musculoskeletal: No Tenderness to Palpation of Joints or Extremities, Muscle Wasting Neurological: - - Lack of epicritic sensation light touch bilateral lower extremities Psych/Mental Status: Normal Affect, Appropriate Debridement Note Post-Debridement Measurements/Treatment WC - Nurse 2 - General Ulcer CM Notes Start: 04/26/18 13:31 Freq: Status: Active Protocol: Activity Type Activity Date Activity User E-Sign Co-Sign Detail Recorded Client Recorded Date Recorded By Document 04/26/18 15:24 [id number] 04/26/18 15:25 04/26/18 15:24 Wound Center Nurse 2 #7 R Lat Foot -Correct Patient No -Correct Side, Site, Position No -Correct Procedure No -Procedure Performed No #6 Lat heel -Correct Patient No -Correct Side, Site, Position No -Correct Procedure No -Procedure Performed No #5 R Post LE -Correct Patient No -Correct Side, Site, Position No -Correct Procedure No -Procedure Performed No #4 R Post Heel -Correct Patient No -Correct Side, Site, Position No -Correct Procedure No -Procedure Performed No #3 R Grt Toe -Correct Patient No -Correct Side, Site, Position No -Correct Procedure No -Procedure Performed No #2 R Foot/Toes Cluster -Correct Patient No -Correct Side, Site, Position No -Correct Procedure No -Procedure Performed No #1 L Foot/Toes Amp Site -Correct Patient No -Correct Side, Site, Position No -Correct Procedure No -Procedure Performed No Pain Scale: 0-10 Numeric Is Patient Pain Free? Yes No debridement was completed today - Debridement will be considered only after vascular status is confirmed and was not performed today bilateral Assessment/Plan Active Problems (Last Reviewed 03/13/18 @ 15:16 by Suzanna Holland) Gangrene of right foot (Chronic) Gangrene of left foot (Chronic) Amputation of left foot with complication (Chronic) Type 2 diabetes mellitus with diabetic polyneuropathy (Chronic) Peripheral vascular disease (Chronic) Malnutrition (Chronic) B-cell chronic lymphocytic leukemia (Chronic) Assessment: Howard grade 4 gangrene bilateral. Diabetes with neuropathy. Peripheral vascular disease. Malnutrition. Gait impairment. Leukemia. Other comorbidities Plan: I reviewed and discussed the case with the patient and his family member today. Debridement was not performed because both bilateral lower extremities appear to be dysvascular and I would like to confirm perfusion prior to performing this. He has had most of his previous workup performed the [facility] and I have requested all of his documentation from his recent hospital admission, vascular surgery, and infectious disease. Clinically he appears to be stable and there is no active wet gangrene or infection. I do not recommend additional antibiotic use at this time. It is noted he is on levofloxacin. I recommend he changes the right lower extremity dressing with Betadine gauze as he has been performing to keep the gangrene dry mummified. He understands this is not viable. I recommend changing the left lower extremity dressing daily with Santyl applied in nickel thickness; this will be ordered. Bilateral surgical shoes were dispensed to offload and protect the site it is okay to weight-bear to the heels for transfers only in the [place] [facility] will be notified of this. The shoes were dispensed and fitted properly. I advised him not to tighten the straps over the gangrenous portions of his forefoot bilateral. To continue with nutritional supplementation optimize healing; I recommend Gino 1-2 times daily if he is not already taking this. I reviewed his medication list and did not see nutritional supplementations on this. To monitor closely for local and systemic signs of illness which is not noted at this time. It is also located the angle of the legs especially if this reduces his pain. To keep pressure off of the heels while resting and lying in bed by floating the lower extremities over pillows. He does have a posterior leg eschar on the right lower extremities is noted stable and well adhered. Updated lab work was ordered including CBC, CMP, hemoglobin A1c, sedimentation rate, C-reactive protein and will be reviewed next week. Updated bilateral foot x-rays were also ordered and he will try to get this today. We reviewed the basics needed to promote wound healing and I answered all his questions. I recommend he follow-up in clinic in 1 week or call sooner if he has any questions or concerns.
--- NOTE | 2018-04-26 16:15 | RAD_ITS ---
STUDY: X-RAY - LEFT FOOT CLINICAL: Wound care, amputation in February. TECHNIQUE: 3 view(s) of the foot. COMPARISON: None. FINDINGS: Normal talus, calcaneus, and tarsal bones. Normal visualized subtalar, talonavicular, calcaneocuboid, tarsal and tarsometatarsal articulations. There is amputation of the first through fifth digits at the level of the metatarsal diaphyses. There is vascular calcification. RAD/Foot min 3 Views IMPRESSION: Status post amputation of the first through fifth digits. Electronically Signed: Lucas Turner MD at 14:38 EDT Tel , Service support ,
--- NOTE | 2018-04-26 16:15 | RAD_ITS ---
STUDY: X-RAY - RIGHT FOOT CLINICAL: Male, 82 years old. Pain. TECHNIQUE: 3 view(s) of the foot. COMPARISON: None. FINDINGS: Normal talus, calcaneus, and tarsal bones. Normal visualized subtalar, talonavicular, calcaneocuboid, tarsal and tarsometatarsal articulations. Normal metatarsi. There is mild degenerative arthrosis of the metatarsophalangeal joint of the hallux . Normal tibial and fibular sesamoid bones. Normal interphalangeal joint of the great toe. Normal phalanges of the great toe. Normal second through fifth metatarsophalangeal joints. Normal interphalangeal joints and phalanges of the lesser toes. Atherosclerotic calcifications. RAD/Foot min 3 Views IMPRESSION: No acute abnormality is seen. Electronically Signed: Anthony Boyd MD at 9:29 EDT Tel [phone], Service support ,
[2018-04-26 17:38] LABS: Absolute Lymphocyte Count 31.74 X10^3/ul (0.83-4.51); Absolute Neutrophil Count 6.4 X10^3/uL (2.0-7.7); Basophil# 0.04 X10^3/uL; Basophil% 0.1 % (0-1); Hematocrit 40.2 % (40-54); Hemoglobin 12.4 g/dl (13.0-16.5); Lymphocyte # 31.74 X10^3/ul (4.0); Lymphocyte % 81.2 % (19-41); Mean Corp Hgb Conc 30.8 g/gl (32-36); Mean Corpuscular Hgb 28.6 pg (27.0-32.0); Mean Corpuscular Volume 92.6 fL (80-94); Mean Platelet Vol. 9.4 fl (6.2-12.0); Monocyte# 0.77 X10^3/uL; Neutrophil # 6.38 X10^3/uL (2.7-7.7); Neutrophil % 16.3 % (47-70); Platelet Count 226 K/mm3 (150-450); RBC Distribution Width CV 17.3 % (11.6-14.6); RBC Distribution Width SD 58.9 fl (35.1-43.9); Red Blood Count 4.34 M/mm3 (4.6-6.2)
[2018-04-26 17:43] LABS: ALB/GLOB Ratio 0.5 RATIO (0.9-2.4); AST(SGOT) 42 U/L (15-37); Alanine Aminotransfer ALT/SGPT 34 U/L (16-61); Albumin, Serum 2.4 g/dL (3.2-5.0); Alkaline Phosphatase 146 U/L (45-117); Anion Gap 13 (5-15); BUN 29 mg/dL (7-18); BUN/Creat Ratio 38.1 RATIO (10-20); Chloride 101 mmol/L (98-107); Creatinine, Serum 0.76 mg/dL (0.70-1.30); EST Glomerular Filtration Rate 104 mL/min (>60); Est Glom Filt Rate - Afr Amer 126 mL/min (>60); Globulin 4.4 g/dL (2.2-4.2); Glucose 235 mg/dL (74-106); Potassium 5.5 mmol/L (3.5-5.1); Protein, Total 6.8 g/dL (6.4-8.2); Sodium Level 135 mmol/L (136-145)
[2018-04-26 17:44] LABS: Differential Indicated SCAN CRITERIA MET; POSITIVE COUNT YES; POSITIVE DIFFERENTIAL YES; POSITIVE MORPHOLOGY NO; White Blood Count 39.1 K/mm3 (4.4-11.0)
[2018-04-26 21:14] LABS: Red Cell Morphology NORM C+C NORMAL (NORM C&C)
[2018-04-26 21:16] LABS: Platelet Estimate ADEQUATE (ADEQ)
[2018-04-26 21:18] LABS: Smudge Cells 1+
[2018-04-27 14:26] LABS: Pathologist Review Reviewed
== END 2018-04-27 23:59 ==
LOC: WC 12:50
PROVIDERS: Family Provider Family Medicine Geriatric Medicine; PCP Family Medicine Geriatric Medicine; Visit Provider Podiatrist
DX: I96 Gangrene, not elsewhere classified (principal); E11.40 Type 2 diabetes mellitus with diabetic neuropathy, unspecified; E46 Unspecified protein-calorie malnutrition; I73.9 Peripheral vascular disease, unspecified; R26.9 Unspecified abnormalities of gait and mobility; C91.10 Chronic lymphocytic leukemia of B-cell type not having achieved remission
CPT/HCPCS: 36415; 73630; 80053; 83036; 85025; 86140; 99214; G0463

== ENCOUNTER 2018-05-24 14:30 | Outpatient (RCR) | payer MEDICARE, OTHER, SELFPAY ==
[2018-04-28 01:16] VITALS: BP 124/80; PULSE 79; RESP 16; TEMP 35.6
[2018-05-10 15:22] VITALS: BP 132/56; PULSE 87; RESP 18; TEMP 36.3
--- NOTE | 2018-05-10 16:30 | PCM.WC.PN ---
(1) Chronic ulcer of left foot with necrosis of bone Status: Chronic Current Visit: Yes Code(s): L97.524 - Non-pressure chronic ulcer of other part of left foot with necrosis of bone (2) Gangrene of right foot Status: Chronic Current Visit: Yes Code(s): I96 - Gangrene, not elsewhere classified (3) Gangrene of left foot Status: Chronic Current Visit: Yes Code(s): I96 - Gangrene, not elsewhere classified (4) Type 2 diabetes mellitus with diabetic polyneuropathy Status: Chronic Current Visit: Yes Code(s): E11.42 - Type 2 diabetes mellitus with diabetic polyneuropathy (5) Peripheral vascular disease Status: Chronic Current Visit: Yes Code(s): I73.9 - Peripheral vascular disease, unspecified (6) Histoplasma capsulatum pneumonia Status: Chronic Current Visit: Yes Code(s): B39.2 - Pulmonary histoplasmosis capsulati, unspecified (7) CLL (chronic lymphocytic leukemia) Status: Chronic Current Visit: Yes Code(s): C91.10 - Chronic lymphocytic leukemia of B-cell type not having achieved remission Type of Wound Date of Service: 05/10/18 Chief Complaint: Gangrene to both feet History of Wound: This 82-year-old male presents with bilateral foot gangrene. He relates approximately 1 month ago he was diagnosed with sepsis secondary to wet gangrene of his left lower extremity. He was admitted to [facility] in which Dr. Renteria performed a transmetatarsal amputation with debridement and he was treated with IV antibiotics under the management of infectious disease. He also relates he had some vascular surgery workup and intervention and he does not know the details. This was all completed at the [facility]. He denies current ongoing lower extremity pain. He is not a regular ambulator. His feet feel better when they are tingling down. He denies recent odor. He is with the family member today. He denies recent trauma. His primary care physician is Dr. Edwin Tyler MD. he wears protective surgical shoes as advised and brought them for evaluation today. He has been applying Betadine to the right foot and Santyl to the left foot. He resides in a [place] [facility] facility at this time. He is with his today. Progress of Wound: Improving left and stable right - Physical Exam Vital Signs Temp Pulse Resp BP 97.3 F L 87 18 132/56 H 05/10/18 15:22 05/10/18 15:22 05/10/18 15:22 05/10/18 15:22 General: Alert, Oriented x3, Cooperative HEENT: Atraumatic Extremities: No cyanosis, No edema, Capillary Refill Less than 3 Seconds, No Calf Tenderness - Negative Weaver sign bilateral, Diminished Peripheral Pulses Skin: Ulcer/ Wound - No purulence, no erythema, streaking, no odor, no acute signs of infection. There is mummified gangrenous digits extending to the forefoot consistent with a Wag the left lower extremity has moist partially adhered eschar upon debridement there is exposed healthier tissue and granulation ner grade 4 wound on the right lower extremity. This is stable and dry Material. There is exposed bone and tendon noted Wound Measurements and Assessment WC - Nurse 1 - General Ulcer Measurement Start: 05/10/18 15:22 Freq: Status: Active Protocol: Activity Type Activity Date Activity User E-Sign Co-Sign Detail Recorded Client Recorded Date Recorded By Document 05/10/18 15:22 [id number] 05/10/18 15:47 RB 05/10/18 15:22 Wound Center Nurse 1 [Ulcer Assessment] #7 R Lat Foot -Combined with other wound No -Current Size (cm) - Length 1 -Current Size (cm) - Width 1.2 -Current Size (cm) - Depth 0.2 -Total Square Cm 1.2 -Photo Taken No -Tunneling No -Undermining/Tunneling No -Circular Undermining No -Classification - Thickness Unclassifiable (Eschar Covered ) -Exudate Amt None Present (0 %) -Wound Margin Distinct, Outline Attached -Granulation Amt None Present (0 %) -Slough/Fibrin Yes -Necrosis Amt Large (67-100%) -Necrotic Tissue Type Eschar -Structure Exposed N/A -Texture (Tara-wound Skin Appearance) Assessed -Moisture (Tara-wound Skin Appearance Dry/Scaly ) -Color (Tara-wound Skin Appearance) Assessed -Temperature (Tara-wound Skin No Abnormality Appearance) (Pt Warm) -Tenderness on Palpation (Tara-wound No Skin Appearance) -Foul Odor after Cleansing No #6 R Lat heel -Combined with other wound No -Current Size (cm) - Length 0.3 -Current Size (cm) - Width 0.3 -Current Size (cm) - Depth 0.1 -Total Square Cm 0.09 -Epithelialization None Present -Tunneling No -Undermining/Tunneling No -Circular Undermining No -Classification - Thickness Unclassifiable (Eschar Covered ) -Exudate Amt None Present (0 %) -Wound Margin Distinct, Outline Attached -Granulation Amt None Present (0 %) -Necrosis Amt Large (67-100%) -Necrotic Tissue Type Eschar -Structure Exposed N/A -Texture (Tara-wound Skin Appearance) Assessed -Moisture (Tara-wound Skin Appearance Dry/Scaly ) -Color (Tara-wound Skin Appearance) Assessed -Temperature (Tara-wound Skin No Abnormality Appearance) (Pt Warm) -Tenderness on Palpation (Tara-wound No Skin Appearance) -Foul Odor after Cleansing No #5 R Post LE -Combined with other wound No -Current Size (cm) - Length 0.1 -Current Size (cm) - Width 0.1 -Current Size (cm) - Depth 0.1 -Total Square Cm 0.01 -Photo Taken No -Tunneling No -Undermining/Tunneling No -Circular Undermining No -Classification - Thickness Full Thickness without Exposed Support Structure -Exudate Amt Small (1-33%) -Exudate Type Serosanguineous -Wound Margin Distinct, Outline Attached -Granulation Amt Medium (34-66%) -Granulation Quality Haswell -Slough/Fibrin Yes -Necrosis Amt Small (1-33%) -Necrotic Tissue Type Adherent Slough -Structure Exposed N/A -Texture (Tara-wound Skin Appearance) Assessed -Moisture (Tara-wound Skin Appearance Assessed ) -Color (Tara-wound Skin Appearance) Assessed -Temperature (Tara-wound Skin No Abnormality Appearance) (Pt Warm) -Tenderness on Palpation (Tara-wound No Skin Appearance) #4 R Post Heel -Combined with other wound No -Current Size (cm) - Length 7 -Current Size (cm) - Width 4 -Current Size (cm) - Depth 0.1 -Total Square Cm 28 -Photo Taken No -Tunneling No -Undermining/Tunneling No -Circular Undermining No -Classification - Thickness Unclassifiable (Eschar Covered ) -Exudate Amt None Present (0 %) -Wound Margin Distinct, Outline Attached -Granulation Amt None Present (0 %) -Necrosis Amt Large (67-100%) -Necrotic Tissue Type Eschar -Structure Exposed N/A -Texture (Tara-wound Skin Appearance) Assessed -Moisture (Taar-wound Skin Appearance Dry/Scaly ) -Color (Tara-wound Skin Appearance) Assessed -Temperature (Tara-wound Skin No Abnormality Appearance) (Pt Warm) -Tenderness on Palpation (Tara-wound No Skin Appearance) #3 R Grt Toe -Combined with other wound No -Current Size (cm) - Length 2 -Current Size (cm) - Width 3.2 -Current Size (cm) - Depth 0.1 -Total Square Cm 6.4 -Photo Taken No -Tunneling No -Undermining/Tunneling No -Circular Undermining No -Classification - Thickness Unclassifiable (Eschar Covered ) -Exudate Amt None Present (0 %) -Wound Margin Distinct, Outline Attached -Granulation Amt None Present (0 %) -Necrosis Amt Large (67-100%) -Necrotic Tissue Type Eschar -Structure Exposed N/A -Texture (Tara-wound Skin Appearance) Assessed -Moisture (Tara-wound Skin Appearance Assessed ) Dry/Scaly -Color (Tara-wound Skin Appearance) Assessed -Temperature (Tara-wound Skin No Abnormality Appearance) (Pt Warm) -Tenderness on Palpation (Tara-wound No Skin Appearance) #2 R Foot/Toes Cluster -Combined with other wound No -Current Size (cm) - Length 8 -Current Size (cm) - Width 7 -Current Size (cm) - Depth 0.1 -Total Square Cm 56 -Photo Taken No -Tunneling No -Undermining/Tunneling No -Circular Undermining No -Classification - Thickness Unclassifiable (Eschar Covered ) -Exudate Amt None Present (0 %) -Wound Margin Distinct, Outline Attached -Granulation Amt None Present (0 %) -Slough/Fibrin Yes -Necrosis Amt Large (67-100%) -Necrotic Tissue Type Eschar -Texture (Tara-wound Skin Appearance) Assessed -Moisture (Tara-wound Skin Appearance Assessed ) Dry/Scaly -Color (Tara-wound Skin Appearance) Assessed -Temperature (Tara-wound Skin No Abnormality Appearance) (Pt Warm) -Tenderness on Palpation (Tara-wound No Skin Appearance) -Foul Odor after Cleansing No #1 L Foot/Toes Amp Site -Combined with other wound No -Current Size (cm) - Length 8 -Current Size (cm) - Width 11 -Current Size (cm) - Depth 1 -Total Square Cm 88 -Photo Taken No -Tunneling No -Undermining/Tunneling No -Circular Undermining No -Classification - Thickness Full Thickness without Exposed Support Structure -Exudate Amt Medium (34-66%) -Exudate Type Serosanguineous -Wound Margin Thickened & Rolled Under -Granulation Amt Small (1-33%) -Granulation Quality Haswell -Slough/Fibrin Yes -Necrosis Amt Medium (34-66%) -Necrotic Tissue Type Adherent Slough -Structure Exposed N/A -Texture (Tara-wound Skin Appearance) Assessed -Moisture (Tara-wound Skin Appearance Assessed ) -Color (Tara-wound Skin Appearance) Erythema -Temperature (Tara-wound Skin No Abnormality Appearance) (Pt Warm) -Tenderness on Palpation (Tara-wound No Skin Appearance) -Foul Odor after Cleansing No WC - Nurse 2 - General Ulcer CM Notes Start: 05/10/18 15:22 Freq: Status: Active Protocol: Activity Type Activity Date Activity User E-Sign Co-Sign Detail Recorded Client Recorded Date Recorded By Document 05/10/18 16:02 [id number] 05/10/18 16:04 05/10/18 16:02 Wound Center Nurse 2 [Procedure/Treatment] #7 R Lat Foot -Correct Patient No -Correct Side, Site, Position No -Correct Procedure No -Procedure Performed No #6 R Lat heel -Correct Patient No -Correct Side, Site, Position No -Correct Procedure No -Procedure Performed No #5 R Post LE -Correct Patient No -Correct Side, Site, Position No -Correct Procedure No -Procedure Performed No #4 R Post Heel -Correct Patient No -Correct Side, Site, Position No -Correct Procedure No -Procedure Performed No #3 R Grt Toe -Correct Patient No -Correct Side, Site, Position No -Correct Procedure No -Procedure Performed No #2 R Foot/Toes Cluster -Correct Patient No -Correct Side, Site, Position No -Correct Procedure No -Procedure Performed No #1 L Foot/Toes Amp Site -Time 16:03 -Correct Patient Yes -Correct Side, Site, Position Yes -Correct Procedure Yes -Procedure Performed Yes -Type of Procedure Debridement -Clinical Debridement Subcutaneous -Post Debridement Size (cm) - Length 8 -Post Debridement Size (cm) - Width 11.1 -Post Debridement Size (cm) - Depth 1.0 -Total Square Cm 88.8 -Wound/Ulcer Outcome Not Healed -Ulcer Cleansing Rinsed/ Irrigated with Saline -Foul Odor after Cleansing No -Bioengineered Tissue No -Bleeding Controlled with Pressure -Treatment Response Procedure Tolerated Well [See Physician Procedure note for Specifics] Pain Scale: 0-10 Numeric [Pain] -Is Patient Pain Free? Yes Musculoskeletal: No Tenderness to Palpation of Joints or Extremities, Muscle Wasting, - - Left transmetatarsal amputation Neurological: - - Lack of epicritic sensation to light touch bilateral lower extremities consistent with neuropathy Psych/Mental Status: Normal Affect, Appropriate Debridement Note Post-Debridement Measurements/Treatment WC - Nurse 2 - General Ulcer CM Notes Start: 05/10/18 15:22 Freq: Status: Active Protocol: Activity Type Activity Date Activity User E-Sign Co-Sign Detail Recorded Client Recorded Date Recorded By Document 05/10/18 16:02 KATHLEEN [id number] 05/10/18 16:04 KATHLEEN 05/10/18 16:02 Wound Center Nurse 2 #7 R Lat Foot -Correct Patient No -Correct Side, Site, Position No -Correct Procedure No -Procedure Performed No #6 R Lat heel -Correct Patient No -Correct Side, Site, Position No -Correct Procedure No -Procedure Performed No #5 R Post LE -Correct Patient No -Correct Side, Site, Position No -Correct Procedure No -Procedure Performed No #4 R Post Heel -Correct Patient No -Correct Side, Site, Position No -Correct Procedure No -Procedure Performed No #3 R Grt Toe -Correct Patient No -Correct Side, Site, Position No -Correct Procedure No -Procedure Performed No #2 R Foot/Toes Cluster -Correct Patient No -Correct Side, Site, Position No -Correct Procedure No -Procedure Performed No #1 L Foot/Toes Amp Site -Time 16:03 -Correct Patient Yes -Correct Side, Site, Position Yes -Correct Procedure Yes -Procedure Performed Yes -Type of Procedure Debridement -Clinical Debridement Subcutaneous -Post Debridement Size (cm) - Length 8 -Post Debridement Size (cm) - Width 11.1 -Post Debridement Size (cm) - Depth 1.0 -Total Square Cm 88.8 -Wound/Ulcer Outcome Not Healed -Ulcer Cleansing Rinsed/ Irrigated with Saline -Foul Odor after Cleansing No -Bioengineered Tissue No -Bleeding Controlled with Pressure -Treatment Response Procedure Tolerated Well Pain Scale: 0-10 Numeric Is Patient Pain Free? Yes Wound debrided: foot Laterality: Left Wound Grade/Stage: grade 4 Type of Debridement: Excisional debridement Anesthesia Used: 5% Lidocaine Gel Depth: in the subcutaneous layer, to muscle Percentage of wound debrided: 100 Instrument Used: #15 blade, Forceps Tissue Removed: fibrous, devitalized subcutaneous and tendon, biofilm, slough, eschar Severity: Necrosis of Muscle Amount of bleeding with debridement: Mild Bleeding Controlled with: Pressure Patient tolerated procedure well Assessment/Plan Active Problems (Last Reviewed 03/13/18 @ 15:16 by Suzanna Holland) Gangrene of right foot (Chronic) Gangrene of left foot (Chronic) Type 2 diabetes mellitus with diabetic polyneuropathy (Chronic) Peripheral vascular disease (Chronic) Chronic ulcer of left foot with necrosis of bone (Chronic) Histoplasma capsulatum pneumonia (Chronic) CLL (chronic lymphocytic leukemia) (Chronic) Assessment: Howard grade 4 gangrene bilateral. Diabetes with neuropathy. Peripheral vascular disease. Malnutrition. Gait impairment. Leukemia. Other comorbidities Plan: I reviewed and discussed the case with the patient and his family member today. Debridement was not performed to the right lower extremities appear to be dysvascular and I would like to confirm perfusion prior to performing this. An appointment with Dr. Duran is still being confirmed. Pending on feedback and plan he will be considered either for advanced wound care product application to the left foot versus other surgical foot debridement versus a palliative care program. He understands and answered all his questions in regards this today. The left lower extremity was debrided excisionally to remove nonviable subcutaneous and muscle tissue if there was moist and non-adhered. This is to reduce chance of infection and to keep this wound dry unstable. He tolerated this. He has had most of his previous workup performed the [facility] and I have requested all of his documentation from his recent hospital admission, vascular surgery, and infectious disease. Clinically he appears to be stable and there is no active wet gangrene or infection. I do not recommend additional antibiotic use at this time. It is noted he is on levofloxacin. I recommend he changes the right lower extremity dressing with Betadine gauze as he has been performing to keep the gangrene dry mummified. He understands this is not viable. I recommend changing the left lower extremity dressing daily with Santyl applied in nickel thickness; this will be ordered. Bilateral surgical shoes were dispensed to offload and protect the site it is okay to weight-bear to the heels for transfers only in the [place] [facility] will be notified of this. The shoes were dispensed and fitted properly and he appears to be using his properly. I advised him not to tighten the straps over the gangrenous portions of his forefoot bilateral. To continue with nutritional supplementation optimize healing; I recommend Gino 1-2 times daily if he is not already taking this. I reviewed his medication list and did not see nutritional supplementations on this. To monitor closely for local and systemic signs of illness which is not noted at this time. To keep pressure off of the heels while resting and lying in bed by floating the lower extremities over pillows. He does have a posterior leg eschar on the right lower extremities is noted stable and well adhered. Updated lab work was ordered including CBC, CMP, hemoglobin A1c, sedimentation rate, C-reactive protein and will be reviewed next week. Updated bilateral foot x-rays were also ordered and he will try to get this today. We reviewed the basics needed to promote wound healing and I answered all his questions. I recommend he follow-up in clinic in 1 week or call sooner if he has any questions or concerns.
[2018-05-17 15:13] VITALS: BP 137/50; PULSE 90; RESP 18; TEMP 36.1
--- NOTE | 2018-05-17 17:36 | PN.PCM_ITS ---
(1) Chronic ulcer of left foot with necrosis of bone Status: Chronic Current Visit: Yes Code(s): L97.524 - Non-pressure chronic ulcer of other part of left foot with necrosis of bone (2) Gangrene of right foot Status: Chronic Current Visit: Yes Code(s): I96 - Gangrene, not elsewhere classified (3) Gangrene of left foot Status: Chronic Current Visit: Yes Code(s): I96 - Gangrene, not elsewhere classified (4) Type 2 diabetes mellitus with diabetic polyneuropathy Status: Chronic Current Visit: Yes Code(s): E11.42 - Type 2 diabetes mellitus with diabetic polyneuropathy (5) Peripheral vascular disease Status: Chronic Current Visit: Yes Code(s): I73.9 - Peripheral vascular disease, unspecified (6) Histoplasma capsulatum pneumonia Status: Chronic Current Visit: Yes Code(s): B39.2 - Pulmonary histoplasmosis capsulati, unspecified (7) CLL (chronic lymphocytic leukemia) Status: Chronic Current Visit: Yes Code(s): C91.10 - Chronic lymphocytic leukemia of B-cell type not having achieved remission Type of Wound Date of Service: 05/17/18 Chief Complaint: Gangrene to both feet History of Wound: This 82-year-old male presents with bilateral foot gangrene. he was treated with IV antibiotics under the management of infectious disease. He also relates he had some vascular surgery workup and intervention and he does not know the details. This was all completed at the [facility]. He tried to follow-up with Dr. Duran for vascular consultation and he was not able to get this set up. He asked for a referral in that he [place] area. he denies current ongoing lower extremity pain. He is not a regular ambulator. His feet feel better when they are tingling down. He denies recent odor. He is with the family member today. He denies recent trauma. His primary care physician is Dr. Edwin Tyler MD. he wears protective surgical shoes as advised and brought them for evaluation today. He has been applying Betadine to the right foot and Santyl to the left foot. [facility]. He is with his today. Progress of Wound: Improving left and stable right - Physical Exam Vital Signs Temp Pulse Resp BP 97 F L 90 18 137/50 H 05/17/18 15:13 05/17/18 15:13 05/17/18 15:13 05/17/18 15:13 General: Alert, Oriented x3, Cooperative Extremities: No cyanosis, No edema, Capillary Refill Less than 3 Seconds, No Calf Tenderness, Diminished Peripheral Pulses Skin: Ulcer/ Wound - No purulence, no erythema, streaking, no odor, no acute signs of infection. There is gangrene to the distal right forefoot and a well adhered dry eschar to the posterior right heel. There is improved granulation tissue decreased eschar to the left transmetatarsal amputation stump site. There is exposed bone. There is no fluctuance on palpation. The skin is hairless and atrophic bilateral lower extremities Wound Measurements and Assessment WC - Nurse 1 - General Ulcer Measurement Start: 05/10/18 15:22 Freq: Status: Active Protocol: Activity Type Activity Date Activity User E-Sign Co-Sign Detail Recorded Client Recorded Date Recorded By Document 05/17/18 15:13 RB [id number] 05/17/18 15:33 RB 05/17/18 15:13 Wound Center Nurse 1 [Ulcer Assessment] #7 R Lat Foot -Combined with other wound No -Current Size (cm) - Length 1.5 -Current Size (cm) - Width 1.5 -Current Size (cm) - Depth 0.1 -Total Square Cm 2.25 -Photo Taken No -Tunneling No -Undermining/Tunneling No -Circular Undermining No -Classification - Thickness Unclassifiable (Eschar Covered ) -Exudate Amt None Present (0 %) -Wound Margin Distinct, Outline Attached -Granulation Amt None Present (0 %) -Necrosis Amt Large (67-100%) -Necrotic Tissue Type Eschar -Structure Exposed N/A -Texture (Tara-wound Skin Appearance) Assessed -Moisture (Tara-wound Skin Appearance Dry/Scaly ) -Color (Tara-wound Skin Appearance) Erythema -Temperature (Tara-wound Skin No Abnormality Appearance) (Pt Warm) -Tenderness on Palpation (Tara-wound Yes Skin Appearance) -Foul Odor after Cleansing No #6 R Lat heel -Combined with other wound No -Current Size (cm) - Length 0.3 -Current Size (cm) - Width 0.3 -Current Size (cm) - Depth 0.1 -Total Square Cm 0.09 -Tunneling No -Undermining/Tunneling No -Circular Undermining No -Classification - Thickness Unclassifiable (Eschar Covered ) -Exudate Amt None Present (0 %) -Wound Margin Distinct, Outline Attached -Granulation Amt None Present (0 %) -Necrosis Amt Large (67-100%) -Necrotic Tissue Type Eschar -Structure Exposed N/A -Texture (Tara-wound Skin Appearance) Assessed -Color (Tara-wound Skin Appearance) Erythema -Temperature (Tara-wound Skin No Abnormality Appearance) (Pt Warm) -Tenderness on Palpation (Tara-wound No Skin Appearance) #5 R Post LE -Combined with other wound No -Current Size (cm) - Length 0.1 -Current Size (cm) - Width 0.1 -Current Size (cm) - Depth 0.1 -Total Square Cm 0.01 -Photo Taken No -Tunneling No -Undermining/Tunneling No -Circular Undermining No -Classification - Thickness Full Thickness without Exposed Support Structure -Exudate Amt None Present (0 %) -Wound Margin Distinct, Outline Attached -Granulation Amt Medium (34-66%) -Granulation Quality [place] -Slough/Fibrin Yes -Necrosis Amt Small (1-33%) -Structure Exposed N/A -Texture (Tara-wound Skin Appearance) Assessed -Moisture (Tara-wound Skin Appearance Assessed ) -Color (Tara-wound Skin Appearance) Assessed -Temperature (Tara-wound Skin No Abnormality Appearance) (Pt Warm) -Tenderness on Palpation (Tara-wound No Skin Appearance) -Ulcer Cleansing Rinsed/ Irrigated with Saline #4 R Post Heel -Combined with other wound No -Current Size (cm) - Length 6 -Current Size (cm) - Width 5 -Current Size (cm) - Depth 0.1 -Total Square Cm 30 -Photo Taken No -Tunneling No -Undermining/Tunneling No -Circular Undermining No -Classification - Thickness Unclassifiable (Eschar Covered ) -Exudate Amt None Present (0 %) -Wound Margin Distinct, Outline Attached -Granulation Amt None Present (0 %) -Necrosis Amt Large (67-100%) -Necrotic Tissue Type Eschar -Structure Exposed N/A -Texture (Tara-wound Skin Appearance) Assessed -Moisture (Tara-wound Skin Appearance Assessed ) -Color (Tara-wound Skin Appearance) Assessed Erythema -Temperature (Tara-wound Skin No Abnormality Appearance) (Pt Warm) -Tenderness on Palpation (Tara-wound No Skin Appearance) #3 R Grt Toe -Combined with other wound No -Current Size (cm) - Length 2 -Current Size (cm) - Width 3.7 -Current Size (cm) - Depth 0.1 -Total Square Cm 7.4 -Photo Taken No -Tunneling No -Undermining/Tunneling No -Circular Undermining No -Classification - Thickness Unclassifiable (Eschar Covered ) -Exudate Amt None Present (0 %) -Wound Margin Distinct, Outline Attached -Granulation Amt None Present (0 %) -Slough/Fibrin Yes -Necrosis Amt Large (67-100%) -Necrotic Tissue Type Eschar -Structure Exposed N/A -Texture (Tara-wound Skin Appearance) Assessed -Moisture (Tara-wound Skin Appearance Assessed ) -Color (Tara-wound Skin Appearance) Assessed Erythema -Temperature (Tara-wound Skin No Abnormality Appearance) (Pt Warm) -Tenderness on Palpation (Tara-wound No Skin Appearance) #2 R Foot/Toes Cluster -Combined with other wound No -Current Size (cm) - Length 6 -Current Size (cm) - Width 6.5 -Current Size (cm) - Depth 0.1 -Total Square Cm 39.0 -Photo Taken No -Tunneling No -Undermining/Tunneling No -Circular Undermining No -Classification - Thickness Unclassifiable (Eschar Covered ) -Exudate Amt None Present (0 %) -Wound Margin Distinct, Outline Attached -Granulation Amt None Present (0 %) -Necrosis Amt Large (67-100%) -Necrotic Tissue Type Eschar -Structure Exposed N/A -Texture (Tara-wound Skin Appearance) Assessed -Moisture (Tara-wound Skin Appearance Assessed ) -Color (Tara-wound Skin Appearance) Erythema -Temperature (Tara-wound Skin No Abnormality Appearance) (Pt Warm) -Tenderness on Palpation (Tara-wound No Skin Appearance) #1 L Foot/Toes Amp Site -Combined with other wound No -Current Size (cm) - Length 7 -Current Size (cm) - Width 8.5 -Current Size (cm) - Depth 1.2 -Total Square Cm 59.5 -Photo Taken No -Tunneling No -Undermining/Tunneling No -Circular Undermining No -Classification - Thickness Full Thickness without Exposed Support Structure -Exudate Amt Large (67-100%) -Exudate Type Serosanguineous -Wound Margin Thickened & Rolled Under -Granulation Amt Small (1-33%) -Granulation Quality [place] -Slough/Fibrin Yes -Necrosis Amt Large (67-100%) -Necrotic Tissue Type Adherent Slough -Structure Exposed N/A -Texture (Tara-wound Skin Appearance) Assessed -Moisture (Tara-wound Skin Appearance Assessed ) Dry/Scaly -Color (Tara-wound Skin Appearance) Erythema -Temperature (Tara-wound Skin No Abnormality Appearance) (Pt Warm) -Tenderness on Palpation (Tara-wound No Skin Appearance) WC - Nurse 2 - General Ulcer CM Notes Start: 05/10/18 15:22 Freq: Status: Active Protocol: Activity Type Activity Date Activity User E-Sign Co-Sign Detail Recorded Client Recorded Date Recorded By Document 05/17/18 15:55 [id number] 05/17/18 15:59 05/17/18 15:55 Wound Center Nurse 2 [Procedure/Treatment] #7 R Lat Foot -Correct Patient No -Correct Side, Site, Position No -Correct Procedure No -Procedure Performed No #6 R Lat heel -Correct Patient No -Correct Side, Site, Position No -Correct Procedure No -Procedure Performed No #5 R Post LE -Correct Patient No -Correct Side, Site, Position No -Correct Procedure No -Procedure Performed No #4 R Post Heel -Correct Patient No -Correct Side, Site, Position No -Correct Procedure No -Procedure Performed No #3 R Grt Toe -Correct Patient No -Correct Side, Site, Position No -Correct Procedure No -Procedure Performed No #2 R Foot/Toes Cluster -Correct Patient No -Correct Side, Site, Position No -Correct Procedure No -Procedure Performed No #1 L Foot/Toes Amp Site -Time 15:57 -Correct Patient Yes -Correct Side, Site, Position Yes -Correct Procedure Yes -Procedure Performed Yes -Type of Procedure Debridement -Clinical Debridement Muscle -Post Debridement Size (cm) - Length 7.1 -Post Debridement Size (cm) - Width 8.6 -Post Debridement Size (cm) - Depth 1.2 -Total Square Cm 61.06 -Wound/Ulcer Outcome Not Healed -Ulcer Cleansing Rinsed/ Irrigated with Saline -Foul Odor after Cleansing No -Bioengineered Tissue No -Bleeding Controlled with Pressure -Treatment Response Procedure Tolerated Well [See Physician Procedure note for Specifics] Pain Scale: 0-10 Numeric [Pain] -Is Patient Pain Free? Yes Musculoskeletal: No Tenderness to Palpation of Joints or Extremities, Muscle Wasting, - - Mummified gangrenous digits right foot. Transmetatarsal amputation left foot Neurological: - - Lack of epicritic sensation light touch bilateral lower extremities Psych/Mental Status: Normal Affect, Appropriate Debridement Note Post-Debridement Measurements/Treatment WC - Nurse 2 - General Ulcer CM Notes Start: 05/10/18 15:22 Freq: Status: Active Protocol: Activity Type Activity Date Activity User E-Sign Co-Sign Detail Recorded Client Recorded Date Recorded By Document 05/10/18 16:02 [id number] 05/10/18 16:04 Document 05/17/18 15:55 [id number] 05/17/18 15:59 05/10/18 05/17/18 16:02 15:55 Wound Center Nurse 2 #7 R Lat Foot -Correct Patient No No -Correct Side, Site, Position No No -Correct Procedure No No -Procedure Performed No No #6 R Lat heel -Correct Patient No No -Correct Side, Site, Position No No -Correct Procedure No No -Procedure Performed No No #5 R Post LE -Correct Patient No No -Correct Side, Site, Position No No -Correct Procedure No No -Procedure Performed No No #4 R Post Heel -Correct Patient No No -Correct Side, Site, Position No No -Correct Procedure No No -Procedure Performed No No #3 R Grt Toe -Correct Patient No No -Correct Side, Site, Position No No -Correct Procedure No No -Procedure Performed No No #2 R Foot/Toes Cluster -Correct Patient No No -Correct Side, Site, Position No No -Correct Procedure No No -Procedure Performed No No #1 L Foot/Toes Amp Site -Time 16:03 15:57 -Correct Patient Yes Yes -Correct Side, Site, Position Yes Yes -Correct Procedure Yes Yes -Procedure Performed Yes Yes -Type of Procedure Debridement Debridement -Clinical Debridement Muscle Muscle -Post Debridement Size (cm) - Length 8 7.1 -Post Debridement Size (cm) - Width 11.1 8.6 -Post Debridement Size (cm) - Depth 1.0 1.2 -Total Square Cm 88.8 61.06 -Wound/Ulcer Outcome Not Healed Not Healed -Ulcer Cleansing Rinsed/ Rinsed/ Irrigated with Irrigated with Saline Saline -Foul Odor after Cleansing No No -Bioengineered Tissue No No -Bleeding Controlled with Pressure Pressure -Treatment Response Procedure Procedure Tolerated Well Tolerated Well Pain Scale: 0-10 Numeric Is Patient Pain Free? Yes Yes Wound debrided: distal foot Laterality: Left Wound Grade/Stage: grade 4 Type of Debridement: Excisional debridement Anesthesia Used: 5% Lidocaine Gel Depth: to muscle Percentage of wound debrided: 20 Instrument Used: #15 blade, Forceps Tissue Removed: fibrous, devitalized subcutaneous and tendon, biofilm, slough, eschar Severity: Fat Layer Exposed Amount of bleeding with debridement: Mild Bleeding Controlled with: Pressure Patient tolerated procedure well Assessment/Plan Active Problems (Last Reviewed 03/13/18 @ 15:16 by Suzanna Holland) Gangrene of right foot (Chronic) Gangrene of left foot (Chronic) Type 2 diabetes mellitus with diabetic polyneuropathy (Chronic) Peripheral vascular disease (Chronic) Chronic ulcer of left foot with necrosis of bone (Chronic) Histoplasma capsulatum pneumonia (Chronic) CLL (chronic lymphocytic leukemia) (Chronic) Assessment: Howard grade 4 gangrene bilateral. Diabetes with neuropathy. Peripheral vascular disease. Malnutrition. Gait impairment. Leukemia. Other comorbidities Plan: I reviewed and discussed the case with the patient and his family member today. Debridement was not performed to the right lower extremities appear to be dysvascular and I would like to confirm perfusion prior to performing this. An appointment with Dr. Duran is not possible at this time in a new referral to a local doctor was provided. Pending on feedback and plan he will be considered either for advanced wound care product application to the left foot versus other surgical foot debridement versus a palliative care program. He understands and answered all his questions in regards this today. The left lower extremity was debrided excisionally to remove nonviable subcutaneous and muscle tissue if there was moist and non-adhered. This is to reduce chance of infection and to keep this wound dry unstable. He tolerated this. He has had most of his previous workup performed the [facility] and I have requested all of his documentation from his recent hospital admission, vascular surgery, and infectious disease. Clinically he appears to be stable and there is no active wet gangrene or infection. I do not recommend additional antibiotic use at this time. It is noted he is on levofloxacin. I recommend he changes the right lower extremity dressing with Betadine gauze as he has been performing to keep the gangrene dry mummified. He understands this is not viable. I recommend changing the left lower extremity dressing daily with Santyl applied in nickel thickness; this will be ordered. Bilateral surgical shoes were dispensed to offload and protect the site it is okay to weight-bear to the heels for transfers only in the [facility] facility will be notified of this. The shoes were dispensed and fitted properly and he appears to be using his properly. I advised him not to tighten the straps over the gangrenous portions of his forefoot bilateral. To continue with nutritional supplementation optimize healing; I recommend Gino 1-2 times daily if he is not already taking this. I reviewed his medication list and did not see nutritional supplementations on this. To monitor closely for local and systemic signs of illness which is not noted at this time. To keep pressure off of the heels while resting and lying in bed by floating the lower extremities over pillows. He does have a posterior leg eschar on the right lower extremities is noted stable and well adhered. Updated lab work was ordered including CBC, CMP, hemoglobin A1c, sedimentation rate, C-reactive protein and will be reviewed next week. Updated bilateral foot x-rays were also ordered and he will try to get this today. We reviewed the basics needed to promote wound healing and I answered all his questions. I recommend he follow-up in clinic in 1 week or call sooner if he has any questions or concerns.
[2018-05-24 14:20] VITALS: BP 130/62; PULSE 92; RESP 16; TEMP 36.4
--- NOTE | 2018-05-24 16:08 | PCM.WC.PN ---
(1) Chronic ulcer of left foot with necrosis of muscle Status: Chronic Code(s): L97.523 - Non-pressure chronic ulcer of other part of left foot with necrosis of muscle (2) Chronic ulcer of left foot with necrosis of bone Status: Chronic Code(s): L97.524 - Non-pressure chronic ulcer of other part of left foot with necrosis of bone (3) Gangrene of right foot Status: Chronic Code(s): I96 - Gangrene, not elsewhere classified (4) Gangrene of left foot Status: Chronic Code(s): I96 - Gangrene, not elsewhere classified (5) Type 2 diabetes mellitus with diabetic polyneuropathy Status: Chronic Code(s): E11.42 - Type 2 diabetes mellitus with diabetic polyneuropathy (6) Peripheral vascular disease Status: Chronic Code(s): I73.9 - Peripheral vascular disease, unspecified (7) Histoplasma capsulatum pneumonia Status: Chronic Code(s): B39.2 - Pulmonary histoplasmosis capsulati, unspecified (8) CLL (chronic lymphocytic leukemia) Status: Chronic Code(s): C91.10 - Chronic lymphocytic leukemia of B-cell type not having achieved remission Type of Wound Date of Service: 05/28/18 Chief Complaint: Gangrene to both feet History of Wound: This 82-year-old male presents with bilateral foot gangrene. He has a follow up scheduled with Dr. Nolan with vascular surgery. He has been applying Betadine to the right foot and Santyl to the left foot. He resides in a long term facility at this time. He is with his today. He denies fever, chills, nausea, vomiting. Progress of Wound: Improving left and stable right - Physical Exam Vital Signs Temp Pulse Resp BP 97.5 F L 92 16 130/62 H 05/24/18 14:20 05/24/18 14:20 05/24/18 14:20 05/24/18 14:20 General: Alert, Oriented x3, Cooperative Extremities: No cyanosis, Capillary Refill Less than 3 Seconds, No Calf Tenderness, Diminished Peripheral Pulses, Edema - mild Skin: Ulcer/ Wound - no purulence, no erythema, no streaking, no odor , no purulence bilateral. mummified gangreene toes unchanged and dry stable unchanged eschar to heel right. the left foot has liquified tissue with exposed tendon and bone. left increased sparse granulation noted.the skin is hairless and atrophic Wound Measurements and Assessment WC - Nurse 1 - General Ulcer Measurement Start: 05/10/18 15:22 Freq: Status: Active Protocol: Activity Type Activity Date Activity User E-Sign Co-Sign Detail Recorded Client Recorded Date Recorded By Document 05/24/18 14:20 DL [id number] 05/24/18 14:44 DL 05/24/18 14:20 Wound Center Nurse 1 [Ulcer Assessment] #7 R Lat Foot -Current Size (cm) - Length 1.6 -Current Size (cm) - Width 1.6 -Current Size (cm) - Depth 0.1 -Total Square Cm 2.56 -Photo Taken No -Exudate Amt None Present (0 %) -Wound Margin Distinct, Outline Attached -Granulation Amt None Present (0 %) -Necrosis Amt Large (67-100%) -Necrotic Tissue Type Eschar -Structure Exposed N/A -Texture (Tara-wound Skin Appearance) Assessed -Moisture (Tara-wound Skin Appearance Assessed ) -Color (Tara-wound Skin Appearance) Erythema Mottled Rubor -Temperature (Tara-wound Skin No Abnormality Appearance) (Pt Warm) -Tenderness on Palpation (Tara-wound No Skin Appearance) -Ulcer Cleansing Rinsed/ Irrigated with Saline -Foul Odor after Cleansing No #6 R Lat heel -Current Size (cm) - Length 6.1 -Current Size (cm) - Width 4.2 -Current Size (cm) - Depth 0.1 -Total Square Cm 25.62 -Photo Taken No -Exudate Amt None Present (0 %) -Wound Margin Distinct, Outline Attached -Granulation Amt None Present (0 %) -Necrosis Amt Large (67-100%) -Necrotic Tissue Type Eschar -Structure Exposed N/A -Texture (Tara-wound Skin Appearance) Assessed -Moisture (Tara-wound Skin Appearance Assessed ) -Color (Tara-wound Skin Appearance) Erythema Mottled Rubor -Ulcer Cleansing Rinsed/ Irrigated with Saline -Foul Odor after Cleansing No #3 R Grt Toe -Current Size (cm) - Length 3.2 -Current Size (cm) - Width 4.4 -Current Size (cm) - Depth 0.1 -Total Square Cm 14.08 -Photo Taken No -Exudate Amt None Present (0 %) -Wound Margin Distinct, Outline Attached -Granulation Amt None Present (0 %) -Necrosis Amt Large (67-100%) -Necrotic Tissue Type Eschar -Structure Exposed N/A -Texture (Tara-wound Skin Appearance) Assessed -Moisture (Tara-wound Skin Appearance Assessed ) -Color (Tara-wound Skin Appearance) Hemosiderin Staining Mottled Rubor -Temperature (Tara-wound Skin No Abnormality Appearance) (Pt Warm) -Tenderness on Palpation (Tara-wound No Skin Appearance) -Ulcer Cleansing Wound Cleanser -Foul Odor after Cleansing No #2 R Foot/Toes Cluster -Current Size (cm) - Length 8.5 -Current Size (cm) - Width 0.5 -Current Size (cm) - Depth 0.1 -Total Square Cm 4.25 -Photo Taken No -Exudate Amt None Present (0 %) -Wound Margin Distinct, Outline Attached -Granulation Amt None Present (0 %) -Necrosis Amt Large (67-100%) -Necrotic Tissue Type Eschar -Structure Exposed N/A -Texture (Tara-wound Skin Appearance) Assessed -Moisture (Tara-wound Skin Appearance Assessed ) -Color (Tara-wound Skin Appearance) Mottled -Temperature (Tara-wound Skin No Abnormality Appearance) (Pt Warm) -Tenderness on Palpation (Tara-wound No Skin Appearance) -Ulcer Cleansing Not Cleansed -Foul Odor after Cleansing No #1 L Foot/Toes Amp Site -Current Size (cm) - Length 7 -Current Size (cm) - Width 12.2 -Current Size (cm) - Depth 0.2 -Total Square Cm 85.4 -Photo Taken No -Exudate Amt Medium (34-66%) -Exudate Type Serosanguineous -Wound Margin Distinct, Outline Attached -Granulation Amt None Present (0 %) -Necrosis Amt Large (67-100%) -Necrotic Tissue Type Adherent Slough -Structure Exposed Fascia -Texture (Tara-wound Skin Appearance) Localized Edema -Moisture (Tara-wound Skin Appearance No Abnormality ) -Color (Tara-wound Skin Appearance) Mottled Rubor -Temperature (Tara-wound Skin No Abnormality Appearance) (Pt Warm) -Tenderness on Palpation (Tara-wound Yes Skin Appearance) -Ulcer Cleansing Rinsed/ Irrigated with Saline -Foul Odor after Cleansing No -Anesthetic Used 4% Lidocaine Solution WC - Nurse 2 - General Ulcer CM Notes Start: 05/10/18 15:22 Freq: Status: Active Protocol: Activity Type Activity Date Activity User E-Sign Co-Sign Detail Recorded Client Recorded Date Recorded By Document 05/24/18 14:57 [id number] 05/24/18 15:09 05/24/18 14:57 Wound Center Nurse 2 [Procedure/Treatment] #7 R Lat Foot -Time 14:59 -Correct Patient No -Correct Side, Site, Position No -Correct Procedure No -Procedure Performed No #6 R Lat heel -Time 14:59 -Correct Patient No -Correct Side, Site, Position No -Correct Procedure No -Procedure Performed No #4 R Post Heel -Time 14:59 -Correct Patient No -Correct Side, Site, Position No -Correct Procedure No -Procedure Performed No #1 L Foot/Toes Amp Site -Time 14:58 -Correct Patient Yes -Correct Side, Site, Position Yes -Correct Procedure Yes -Procedure Performed Yes -Type of Procedure Debridement -Clinical Debridement Muscle -Post Debridement Size (cm) - Length 7.0 -Post Debridement Size (cm) - Width 12.2 -Post Debridement Size (cm) - Depth 0.2 -Total Square Cm 85.40 -Wound/Ulcer Outcome Not Healed -Ulcer Cleansing Not Cleansed -Foul Odor after Cleansing No -Bioengineered Tissue No -Bleeding Controlled with Pressure -Treatment Response Procedure Tolerated Well [See Physician Procedure note for Specifics] Pain Scale: 0-10 Numeric [Pain] -Is Patient Pain Free? Yes Musculoskeletal: No Tenderness to Palpation of Joints or Extremities, Muscle Wasting, - - transmetatarsal amputation left Neurological: - - lack of epicritic sensation via light touch bilateral Psych/Mental Status: Normal Affect, Appropriate Debridement Note Post-Debridement Measurements/Treatment WC - Nurse 2 - General Ulcer CM Notes Start: 05/10/18 15:22 Freq: Status: Active Protocol: Activity Type Activity Date Activity User E-Sign Co-Sign Detail Recorded Client Recorded Date Recorded By Document 05/10/18 16:02 [id number] 05/10/18 16:04 Document 05/17/18 15:55 [id number] 05/17/18 15:59 Document 05/24/18 14:57 [id number] 05/24/18 15:09 CS 05/10/18 05/17/18 05/24/18 16:02 15:55 14:57 Wound Center Nurse 2 #7 R Lat Foot -Time 14:59 -Correct Patient No No No -Correct Side, Site, Position No No No -Correct Procedure No No No -Procedure Performed No No No #6 R Lat heel -Time 14:59 -Correct Patient No No No -Correct Side, Site, Position No No No -Correct Procedure No No No -Procedure Performed No No No #5 R Post LE -Correct Patient No No -Correct Side, Site, Position No No -Correct Procedure No No -Procedure Performed No No #4 R Post Heel -Time 14:59 -Correct Patient No No No -Correct Side, Site, Position No No No -Correct Procedure No No No -Procedure Performed No No No #3 R Grt Toe -Correct Patient No No -Correct Side, Site, Position No No -Correct Procedure No No -Procedure Performed No No #2 R Foot/Toes Cluster -Correct Patient No No -Correct Side, Site, Position No No -Correct Procedure No No -Procedure Performed No No #1 L Foot/Toes Amp Site -Time 16:03 15:57 14:58 -Correct Patient Yes Yes Yes -Correct Side, Site, Position Yes Yes Yes -Correct Procedure Yes Yes Yes -Procedure Performed Yes Yes Yes -Type of Procedure Debridement Debridement Debridement -Clinical Debridement Muscle Muscle Muscle -Post Debridement Size (cm) - Length 8 7.1 7.0 -Post Debridement Size (cm) - Width 11.1 8.6 12.2 -Post Debridement Size (cm) - Depth 1.0 1.2 0.2 -Total Square Cm 88.8 61.06 85.40 -Wound/Ulcer Outcome Not Healed Not Healed Not Healed -Ulcer Cleansing Rinsed/ Rinsed/ Not Cleansed Irrigated with Irrigated with Saline Saline -Foul Odor after Cleansing No No No -Bioengineered Tissue No No No -Bleeding Controlled with Pressure Pressure Pressure -Treatment Response Procedure Procedure Procedure Tolerated Well Tolerated Well Tolerated Well Pain Scale: 0-10 Numeric Is Patient Pain Free? 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 Diabetes with neuropathy. Peripheral vascular disease. Malnutrition. Gait impairment. Leukemia. Other comorbidities Plan: I reviewed and discussed the case with the patient and his family member today. Debridement was not performed to the right lower extremities appear to be dysvascular and I would like to confirm perfusion prior to performing this. His appointment with Dr. Nolan is pending in about two weeks. Pending on feedback and plan he will be considered either for advanced wound care product application to the left foot versus other surgical foot debridement versus a palliative care program. Debridement was performed today to the left lower extremity as noted in the clinical panel to remove non viable tendon and subcutaneous tissue. He understands and answered all his questions in regards to this today. This is to reduce chance of infection and to keep this wound dry unstable. He tolerated this. He has had most of his previous workup performed the [facility] and I have requested all of his documentation from his recent hospital admission, vascular surgery, and infectious disease. This was reviewed. Clinically he appears to be stable and there is no active wet gangrene or infection. I do not recommend additional antibiotic use at this time. It is noted he is on levofloxacin. I recommend he changes the right lower extremity dressing with Betadine gauze as he has been performing to keep the gangrene dry mummified. He understands this is not viable. I recommend changing the left lower extremity dressing daily with Santyl applied in nickel thickness; this will be ordered. Bilateral surgical shoes were dispensed to offload and protect the site it is okay to weight-bear to the heels for transfers only in the long term facility will be notified of this. The shoes were dispensed and fitted properly and he appears to be using his properly. I advised him not to tighten the straps over the gangrenous portions of his forefoot bilateral. To continue with nutritional supplementation optimize healing; I recommend Gino 1-2 times daily if he is not already taking this. To monitor closely for local and systemic signs of illness which is not noted at this time. To keep pressure off of the heels while resting and lying in bed by floating the lower extremities over pillows. Updated lab work was reviewed. Updated bilateral foot x-rays were also previously reviewed without acute fracture, dislocation or soft tissue emphysema. There is vessel calcification and left amputation noted. We reviewed the basics needed to promote wound healing and I answered all his questions. I recommend he follow-up in clinic in 1 week or call sooner if he has any questions or concerns.
== END 2018-05-27 23:59 ==
LOC: WC 14:30
PROVIDERS: Family Provider Family Medicine Geriatric Medicine; PCP Family Medicine Geriatric Medicine; Visit Provider Podiatrist
DX: E11.621 Type 2 diabetes mellitus with foot ulcer (principal); E11.42 Type 2 diabetes mellitus with diabetic polyneuropathy; E11.52 Type 2 diabetes mellitus with diabetic peripheral angiopathy with gangrene; L97.522 Non-pressure chronic ulcer of other part of left foot with fat layer exposed; L97.523 Non-pressure chronic ulcer of other part of left foot with necrosis of muscle; C91.10 Chronic lymphocytic leukemia of B-cell type not having achieved remission; L97.419 Non-pressure chronic ulcer of right heel and midfoot with unspecified severity
CPT/HCPCS: 11043; 11046; 99213; G0463

== ENCOUNTER → 2018-06-13 06:55 | Outpatient (CLI) | payer MEDICARE, OTHER, SELFPAY ==
--- NOTE | 2018-06-13 06:59 | ADU_ITS ---
Reason For Study: atherosclerosis with ulcer Right Velocities Left Velocities Common Femoral Artery, mid = 82.5 cm./sec. Common Femoral Artery, mid = 90.4 cm./sec. Supf Femoral Artery, prox = 73.1 cm./sec. Supf. Femoral Artery, prox = 66.0 cm./sec. Supf Femoral Artery, mid = 112 cm./sec. Supf. Femoral Artery, mid = 84.9 cm./sec. Supf Femoral Artery, dist. = 52.6 cm./sec. Supf. Femoral Artery, dist = 51.9 cm./sec. Profunda Femoral Artery = 83.3 cm./sec. Profunda Femoral Artery = 63.6 cm./sec. Popliteal Artery, mid = 57.4 cm./sec. Popliteal Artery, mid = 41.6 cm./sec. Post. Tibial Artery, prox = 34.6 cm./sec. Post. Tibial Artery, prox = 36.1 cm./sec. Post. Tibial Artery, mid = 62.9 cm./sec. Post Tibial Artery, mid = 63.6 cm./sec. Post. Tibial Artery, dist = 19.9 cm./sec. Post Tibial Artery, dist. = 79.4 cm./sec. Peroneal Artery, prox = 39.3 cm./sec. Peroneal Artery, prox = 51.1 cm./sec. Peroneal Artery, mid = 40.5 cm./sec. Peroneal Artery, mid = 52.6 cm./sec. Ant. Tibial Artery, prox = 41.6 cm./sec. Peroneal Artery,dist. = 116 cm./sec. Ant. Tibial Artery, mid = 432 cm./sec. Ant.Tibial Artery, prox = 93.5 cm./sec. Ant. Tibial Artery, dist = 61.3 cm./sec. Ant Tibial Artery, mid = 30.6 cm./sec. Ant. Tibial Artery, distal = 39.3 cm./sec. Interpretation Summary 1. Bilateral with some decreased flow in tibials. 2. Severe stenosis riht anterio tibial. 3. Mild stenosis left peroneal. Ordering Physician: Larry Nolan Performed By: Farooq Redd RVT
--- NOTE | 2018-06-14 11:02 | LEAS ---
Arterial Study - Arterial Study Arterial Study: Date of scan 06/13/[address] Nolan History patient with bilateral gangrene of both feet. Interpretation: Right lower extremity pulsatile flow noted at the ankle little abnormal waveform. Duplex shows biphasic flow both vessels at the ankle with an LISA 0.65 in the posterior tibial noncompressible of the DP. Next Left lower extremity pulsatile flow noted down at the ankle duplex shows triphasic flow of the PT and biphasic of the DP. Both vessels are noncompressible. Impression: 1. Right lower extremity with probable mild to moderate arterial occlusive disease. Biphasic flow noted and LISA 0.65 but noncompressible of the DP. 2. Left lower extremity with arterial occlusive disease noted with medial calcinosis and noncompressible both vessels. But he does have triphasic flow through the posterior tibial
--- NOTE | 2018-06-14 11:05 | LEAS_ITS ---
Arterial Study - Arterial Study Arterial Study: Date of scan 06/13/[address] Nolan History patient with bilateral gangrene of both feet. Interpretation: Right lower extremity pulsatile flow noted at the ankle little abnormal waveform. Duplex shows biphasic flow both vessels at the ankle with an LISA 0.65 in the posterior tibial noncompressible of the DP. Next Left lower extremity pulsatile flow noted down at the ankle duplex shows triphasic flow of the PT and biphasic of the DP. Both vessels are noncompressible. Impression: 1. Right lower extremity with probable mild to moderate arterial occlusive disease. Biphasic flow noted and LISA 0.65 but noncompressible of the DP. 2. Left lower extremity with arterial occlusive disease noted with medial calcinosis and noncompressible both vessels. But he does have triphasic flow through the posterior tibial
== END ==
PROVIDERS: Family Provider Family Medicine Geriatric Medicine; PCP Family Medicine Geriatric Medicine; Visit Provider Surgery Vascular Surgery
DX: I70.245 Atherosclerosis of native arteries of left leg with ulceration of other part of foot (principal); I70.235 Atherosclerosis of native arteries of right leg with ulceration of other part of foot
CPT/HCPCS: 93922; 93925

== ENCOUNTER 2018-06-21 15:00 | Outpatient (RCR) | payer MEDICARE, OTHER, SELFPAY ==
[2018-05-28 01:02] VITALS: BP 130/62; PULSE 92; RESP 16; TEMP 36.4
[2018-06-01 11:54] VITALS: BP 107/52; PULSE 87; RESP 18; TEMP 35.4
--- NOTE | 2018-06-01 13:42 | PCM.WC.PN ---
(1) Chronic ulcer of left foot with necrosis of muscle Status: Chronic Current Visit: No Code(s): L97.523 - Non-pressure chronic ulcer of other part of left foot with necrosis of muscle (2) Chronic ulcer of left foot with necrosis of bone Status: Chronic Current Visit: No Code(s): L97.524 - Non-pressure chronic ulcer of other part of left foot with necrosis of bone (3) Gangrene of right foot Status: Chronic Current Visit: No Code(s): I96 - Gangrene, not elsewhere classified (4) Gangrene of left foot Status: Chronic Current Visit: No Code(s): I96 - Gangrene, not elsewhere classified (5) Type 2 diabetes mellitus with diabetic polyneuropathy Status: Chronic Current Visit: No Code(s): E11.42 - Type 2 diabetes mellitus with diabetic polyneuropathy (6) Peripheral vascular disease Status: Chronic Current Visit: No Code(s): I73.9 - Peripheral vascular disease, unspecified (7) Histoplasma capsulatum pneumonia Status: Chronic Current Visit: No Code(s): B39.2 - Pulmonary histoplasmosis capsulati, unspecified (8) CLL (chronic lymphocytic leukemia) Status: Chronic Current Visit: No Code(s): C91.10 - Chronic lymphocytic leukemia of B-cell type not having achieved remission Type of Wound Date of Service: 06/01/18 Chief Complaint: Gangrene to both feet History of Wound: This 82-year-old male presents with bilateral foot gangrene. he was treated with IV antibiotics under the management of infectious disease. He also relates he had some vascular surgery workup and intervention and he does not know the details. This was all completed at the [facility]. He tried to follow-up with Dr. Duran for vascular consultation and he was not able to get this set up. He asked for a referral in that he [place] area. he denies current ongoing lower extremity pain. He is not a regular ambulator. His feet feel better when they are tingling down. He denies recent odor. He is with the family member today. He denies recent trauma. His primary care physician is Dr. Edwin Tyler MD. he wears protective surgical shoes as advised and brought them for evaluation today. He has been applying Betadine to the right foot and Santyl to the left foot. He resides in a [place] [facility] at this time. He is with his today. Progress of Wound: stable left and stable right - Physical Exam Vital Signs Temp Pulse Resp BP 95.7 F L 87 18 107/52 L 06/01/18 11:54 06/01/18 11:54 06/01/18 11:54 06/01/18 11:54 General: Alert, Oriented x3, Cooperative, No apparent distress Extremities: No cyanosis, Capillary Refill Less than 3 Seconds, No Calf Tenderness, Diminished Peripheral Pulses, Edema - mild Skin: Ulcer/ Wound - No purulence, no erythema, no streaking, no odor bilateral. No mummified gangrene toes unchanged and dry. Stable unchanged eschar to right heel. The left foot continues to have slight Jose Juan liquefied tissue with exposed tendon and bone. Some slight granulation tissue also appreciated to the left foot. Skin is hairless and atrophic Wound Measurements and Assessment WC - Nurse 1 - General Ulcer Measurement Start: 06/01/18 11:54 Freq: Status: Active Protocol: Activity Type Activity Date Activity User E-Sign Co-Sign Detail Recorded Client Recorded Date Recorded By Document 06/01/18 11:54 [id number] 06/01/18 12:07 06/01/18 11:54 Wound Center Nurse 1 [Ulcer Assessment] #7 R Lat Foot -Combined with other wound No -Current Size (cm) - Length 8.6 -Current Size (cm) - Width 11.5 -Current Size (cm) - Depth 0.1 -Total Square Cm 98.90 -Date of Last Picture (Recall this 06/01/18 field) -Photo Taken Yes -Epithelialization None Present -Tunneling No -Undermining/Tunneling No -Circular Undermining No -Classification - Thickness Unclassifiable (Eschar Covered ) -Exudate Amt None Present (0 %) -Wound Margin Distinct, Outline Attached -Granulation Amt None Present (0 %) -Granulation Quality N/A -Slough/Fibrin Yes -Necrotic Tissue Type Eschar -Texture (Tara-wound Skin Appearance) Assessed -Moisture (Tara-wound Skin Appearance Dry/Scaly ) -Color (Tara-wound Skin Appearance) Erythema -Temperature (Tara-wound Skin Cool/Cold Appearance) -Tenderness on Palpation (Tara-wound No Skin Appearance) -Ulcer Cleansing HIBICLENS -Foul Odor after Cleansing No -Anesthetic Used 4% Lidocaine Solution #6 R Lat heel -Combined with other wound No -Current Size (cm) - Length 1.5 -Current Size (cm) - Width 1.4 -Current Size (cm) - Depth 0.1 -Total Square Cm 2.10 -Date of Last Picture (Recall this 06/01/18 field) -Photo Taken Yes -Epithelialization None Present -Tunneling No -Undermining/Tunneling No -Circular Undermining No -Classification - Thickness Unclassifiable (Eschar Covered ) -Classification - Pressure Ulcer Unstageable -Exudate Amt None Present (0 %) -Wound Margin Distinct, Outline Attached -Granulation Amt None Present (0 %) -Granulation Quality N/A -Slough/Fibrin Yes -Necrosis Amt Large (67-100%) -Necrotic Tissue Type Eschar -Texture (Tara-wound Skin Appearance) Assessed -Moisture (Tara-wound Skin Appearance Dry/Scaly ) -Color (Tara-wound Skin Appearance) Erythema -Temperature (Tara-wound Skin Cool/Cold Appearance) -Tenderness on Palpation (Tara-wound No Skin Appearance) -Ulcer Cleansing HIBICLENS -Foul Odor after Cleansing No -Anesthetic Used 4% Lidocaine Solution #4 R Post Heel -Combined with other wound No -Current Size (cm) - Length 6.8 -Current Size (cm) - Width 3.4 -Current Size (cm) - Depth 0.1 -Total Square Cm 23.12 -Date of Last Picture (Recall this 06/01/18 field) -Photo Taken Yes -Epithelialization None Present -Tunneling No -Undermining/Tunneling No -Circular Undermining No -Classification - Thickness Unclassifiable (Eschar Covered ) -Classification - Pressure Ulcer Unstageable -Exudate Amt None Present (0 %) -Wound Margin Distinct, Outline Attached -Granulation Amt None Present (0 %) -Granulation Quality N/A -Slough/Fibrin Yes -Necrosis Amt Large (67-100%) -Necrotic Tissue Type Eschar -Texture (Tara-wound Skin Appearance) Assessed -Moisture (Tara-wound Skin Appearance Dry/Scaly ) -Color (Tara-wound Skin Appearance) Erythema -Temperature (Tara-wound Skin Cool/Cold Appearance) -Tenderness on Palpation (Tara-wound No Skin Appearance) -Ulcer Cleansing HIBICLENS -Foul Odor after Cleansing No -Anesthetic Used 4% Lidocaine Solution #1 L Foot/Toes Amp Site -Combined with other wound No -Current Size (cm) - Length 6.9 -Current Size (cm) - Width 12.6 -Current Size (cm) - Depth 1.1 -Total Square Cm 86.94 -Date of Last Picture (Recall this 06/01/18 field) -Photo Taken Yes -Epithelialization None Present -Tunneling No -Undermining/Tunneling No -Circular Undermining No -Classification - Thickness Full Thickness with Exposed Support Structure -Exudate Amt Medium (34-66%) -Exudate Type Serosanguineous -Wound Margin Distinct, Outline Attached -Granulation Amt None Present (0 %) -Granulation Quality N/A -Slough/Fibrin Yes -Necrosis Amt Large (67-100%) -Necrotic Tissue Type Adherent Slough -Structure Exposed Tendon Fascia Muscle Fat Layer Exposed -Texture (Tara-wound Skin Appearance) Friable -Moisture (Tara-wound Skin Appearance No Abnormality ) -Color (Tara-wound Skin Appearance) Erythema -Temperature (Tara-wound Skin Cool/Cold Appearance) -Tenderness on Palpation (Tara-wound No Skin Appearance) -Ulcer Cleansing HIBICLENS -Foul Odor after Cleansing No -Anesthetic Used 4% Lidocaine Solution [Edema Assessment] -Lower Limb Edema Present No WC - Nurse 2 - General Ulcer CM Notes Start: 06/01/18 11:54 Freq: Status: Active Protocol: Activity Type Activity Date Activity User E-Sign Co-Sign Detail Recorded Client Recorded Date Recorded By Document 06/01/18 12:18 [id number] 06/01/18 12:21 06/01/18 12:18 Wound Center Nurse 2 [Procedure/Treatment] #7 R Lat Foot -Time 12:19 -Correct Patient No -Correct Side, Site, Position No -Correct Procedure No -Procedure Performed No -Wound/Ulcer Outcome Not Healed -Ulcer Cleansing Not Cleansed -Foul Odor after Cleansing No -Bioengineered Tissue No #6 R Lat heel -Time 12:20 -Correct Patient No -Correct Side, Site, Position No -Correct Procedure No -Procedure Performed No #4 R Post Heel -Time 12:20 #1 L Foot/Toes Amp Site -Time 12:20 -Correct Patient Yes -Correct Side, Site, Position Yes -Correct Procedure Yes -Procedure Performed Yes -Type of Procedure Debridement -Clinical Debridement Subcutaneous -Post Debridement Size (cm) - Length 6.8 -Post Debridement Size (cm) - Width 11.5 -Post Debridement Size (cm) - Depth 0.3 -Total Square Cm 78.20 -Wound/Ulcer Outcome Not Healed -Ulcer Cleansing Not Cleansed -Foul Odor after Cleansing No -Bioengineered Tissue No -Bleeding Controlled with NA -Treatment Response Procedure Tolerated Well [See Physician Procedure note for Specifics] Pain Scale: 0-10 Numeric [Pain] -Is Patient Pain Free? Yes Musculoskeletal: No Tenderness to Palpation of Joints or Extremities, - - Left transmetatarsal amputation Neurological: - - Lack of epicritic sensation via light touch bilateral Psych/Mental Status: Normal Affect, Appropriate Debridement Note Post-Debridement Measurements/Treatment WC - Nurse 2 - General Ulcer CM Notes Start: 06/01/18 11:54 Freq: Status: Active Protocol: Activity Type Activity Date Activity User E-Sign Co-Sign Detail Recorded Client Recorded Date Recorded By Document 06/01/18 12:18 [id number] 06/01/18 12:21 06/01/18 12:18 Wound Center Nurse 2 #7 R Lat Foot -Time 12:19 -Correct Patient No -Correct Side, Site, Position No -Correct Procedure No -Procedure Performed No -Wound/Ulcer Outcome Not Healed -Ulcer Cleansing Not Cleansed -Foul Odor after Cleansing No -Bioengineered Tissue No #6 R Lat heel -Time 12:20 -Correct Patient No -Correct Side, Site, Position No -Correct Procedure No -Procedure Performed No #4 R Post Heel -Time 12:20 #1 L Foot/Toes Amp Site -Time 12:20 -Correct Patient Yes -Correct Side, Site, Position Yes -Correct Procedure Yes -Procedure Performed Yes -Type of Procedure Debridement -Clinical Debridement Subcutaneous -Post Debridement Size (cm) - Length 6.8 -Post Debridement Size (cm) - Width 11.5 -Post Debridement Size (cm) - Depth 0.3 -Total Square Cm 78.20 -Wound/Ulcer Outcome Not Healed -Ulcer Cleansing Not Cleansed -Foul Odor after Cleansing No -Bioengineered Tissue No -Bleeding Controlled with NA -Treatment Response Procedure Tolerated Well Pain Scale: 0-10 Numeric Is Patient Pain Free? Yes Wound debrided: Left forefoot Laterality: Left Wound Grade/Stage: jeramy 4 Type of Debridement: Excisional debridement Anesthesia Used: 4% Lidocaine Solution Depth: in the subcutaneous layer Percentage of wound debrided: 100 Instrument Used: #15 blade Tissue Removed: Fibrous, devitalized subcutaneous and tendon tissue, biofilm, slough Severity: Fat Layer Exposed Amount of bleeding with debridement: Mild Bleeding Controlled with: Pressure Patient tolerated procedure well Assessment/Plan Assessment: Howard grade 4 gangrene bilateral. Diabetes with neuropathy. Peripheral vascular disease. Malnutrition. Gait impairment. Leukemia. Other comorbidities Plan: Patient was seen today as courtesy visit for Dr. Mendoza due to May 31 Hol. I reviewed and discussed the case with the patient and his family member today. Debridement was not performed to the right lower extremities appear to be dysvascular and I would like to confirm perfusion prior to performing this. An appointment with Dr. Duran is not possible at this time in a new referral to a local doctor was provided. Pending on feedback and plan he will be considered either for advanced wound care product application to the left foot versus other surgical foot debridement versus a palliative care program. He understands and answered all his questions in regards this today. The left lower extremity was debrided excisionally to remove nonviable subcutaneous and muscle tissue if there was moist and non-adhered. This is to reduce chance of infection and to keep this wound dry and stable. He tolerated this. He has had most of his previous workup performed the [facility]. Notes have been requested. Clinically he appears to be stable and there is no active wet gangrene or infection. I recommend he continues to change the right lower extremity dressing with Betadine gauze as he has been performing to keep the gangrene dry mummified. He understands this is not viable. I recommend changing the left lower extremity dressing daily with Santyl applied in nickel thickness. Bilateral surgical shoes were dispensed last visit to offload and protect the site it is okay to weight-bear to the heels for transfers only in the [place] [facility] will be notified of this. I advised him again not to tighten the straps over the gangrenous portions of his forefoot bilateral. To continue with nutritional supplementation optimize healing; I recommend Gino 1-2 times daily if he is not already taking this. To monitor closely for local and systemic signs of illness which is not noted at this time. To keep pressure off of the heels while resting and lying in bed by floating the lower extremities over pillows. He does have a posterior leg eschar on the right lower extremities is noted stable and well adhered. We reviewed the basics needed to promote wound healing and I answered all his questions. I recommend he follow-up in clinic in [address] Mendoza or call sooner if he has any questions or concerns.
--- NOTE | 2018-06-01 13:52 | PN.PCM_ITS ---
(1) Chronic ulcer of left foot with necrosis of muscle Status: Chronic Current Visit: No Code(s): L97.523 - Non-pressure chronic ulcer of other part of left foot with necrosis of muscle (2) Chronic ulcer of left foot with necrosis of bone Status: Chronic Current Visit: No Code(s): L97.524 - Non-pressure chronic ulcer of other part of left foot with necrosis of bone (3) Gangrene of right foot Status: Chronic Current Visit: No Code(s): I96 - Gangrene, not elsewhere classified (4) Gangrene of left foot Status: Chronic Current Visit: No Code(s): I96 - Gangrene, not elsewhere classified (5) Type 2 diabetes mellitus with diabetic polyneuropathy Status: Chronic Current Visit: No Code(s): E11.42 - Type 2 diabetes mellitus with diabetic polyneuropathy (6) Peripheral vascular disease Status: Chronic Current Visit: No Code(s): I73.9 - Peripheral vascular disease, unspecified (7) Histoplasma capsulatum pneumonia Status: Chronic Current Visit: No Code(s): B39.2 - Pulmonary histoplasmosis capsulati, unspecified (8) CLL (chronic lymphocytic leukemia) Status: Chronic Current Visit: No Code(s): C91.10 - Chronic lymphocytic leukemia of B-cell type not having achieved remission Type of Wound Date of Service: 06/01/18 Chief Complaint: Gangrene to both feet History of Wound: This 82-year-old male presents with bilateral foot gangrene. he was treated with IV antibiotics under the management of infectious disease. He also relates he had some vascular surgery workup and intervention and he does not know the details. This was all completed at the [facility]. He tried to follow-up with Dr. Duran for vascular consultation and he was not able to get this set up. He asked for a referral in that he [place] area. he denies current ongoing lower extremity pain. He is not a regular ambulator. His feet feel better when they are tingling down. He denies recent odor. He is with the family member today. He denies recent trauma. His primary care physician is Dr. Edwin Tyler MD. he wears protective surgical shoes as advised and brought them for evaluation today. He has been applying Betadine to the right foot and Santyl to the left foot. He resides in a detention facility at this time. He is with his today. Progress of Wound: stable left and stable right - Physical Exam Vital Signs Temp Pulse Resp BP 95.7 F L 87 18 107/52 L 06/01/18 11:54 06/01/18 11:54 06/01/18 11:54 06/01/18 11:54 General: Alert, Oriented x3, Cooperative, No apparent distress Extremities: No cyanosis, Capillary Refill Less than 3 Seconds, No Calf Tenderness, Diminished Peripheral Pulses, Edema - mild Skin: Ulcer/ Wound - No purulence, no erythema, no streaking, no odor bilateral. No mummified gangrene toes unchanged and dry. Stable unchanged eschar to right heel. The left foot continues to have slight Jose Juan liquefied tissue with exposed tendon and bone. Some slight granulation tissue also appreciated to the left foot. Skin is hairless and atrophic Wound Measurements and Assessment WC - Nurse 1 - General Ulcer Measurement Start: 06/01/18 11:54 Freq: Status: Active Protocol: Activity Type Activity Date Activity User E-Sign Co-Sign Detail Recorded Client Recorded Date Recorded By Document 06/01/18 11:54 [id number] 06/01/18 12:07 06/01/18 11:54 Wound Center Nurse 1 [Ulcer Assessment] #7 R Lat Foot -Combined with other wound No -Current Size (cm) - Length 8.6 -Current Size (cm) - Width 11.5 -Current Size (cm) - Depth 0.1 -Total Square Cm 98.90 -Date of Last Picture (Recall this 06/01/18 field) -Photo Taken Yes -Epithelialization None Present -Tunneling No -Undermining/Tunneling No -Circular Undermining No -Classification - Thickness Unclassifiable (Eschar Covered ) -Exudate Amt None Present (0 %) -Wound Margin Distinct, Outline Attached -Granulation Amt None Present (0 %) -Granulation Quality N/A -Slough/Fibrin Yes -Necrotic Tissue Type Eschar -Texture (Tara-wound Skin Appearance) Assessed -Moisture (Tara-wound Skin Appearance Dry/Scaly ) -Color (Tara-wound Skin Appearance) Erythema -Temperature (Tara-wound Skin Cool/Cold Appearance) -Tenderness on Palpation (Tara-wound No Skin Appearance) -Ulcer Cleansing HIBICLENS -Foul Odor after Cleansing No -Anesthetic Used 4% Lidocaine Solution #6 R Lat heel -Combined with other wound No -Current Size (cm) - Length 1.5 -Current Size (cm) - Width 1.4 -Current Size (cm) - Depth 0.1 -Total Square Cm 2.10 -Date of Last Picture (Recall this 06/01/18 field) -Photo Taken Yes -Epithelialization None Present -Tunneling No -Undermining/Tunneling No -Circular Undermining No -Classification - Thickness Unclassifiable (Eschar Covered ) -Classification - Pressure Ulcer Unstageable -Exudate Amt None Present (0 %) -Wound Margin Distinct, Outline Attached -Granulation Amt None Present (0 %) -Granulation Quality N/A -Slough/Fibrin Yes -Necrosis Amt Large (67-100%) -Necrotic Tissue Type Eschar -Texture (Tara-wound Skin Appearance) Assessed -Moisture (Tara-wound Skin Appearance Dry/Scaly ) -Color (Tara-wound Skin Appearance) Erythema -Temperature (Tara-wound Skin Cool/Cold Appearance) -Tenderness on Palpation (Tara-wound No Skin Appearance) -Ulcer Cleansing HIBICLENS -Foul Odor after Cleansing No -Anesthetic Used 4% Lidocaine Solution #4 R Post Heel -Combined with other wound No -Current Size (cm) - Length 6.8 -Current Size (cm) - Width 3.4 -Current Size (cm) - Depth 0.1 -Total Square Cm 23.12 -Date of Last Picture (Recall this 06/01/18 field) -Photo Taken Yes -Epithelialization None Present -Tunneling No -Undermining/Tunneling No -Circular Undermining No -Classification - Thickness Unclassifiable (Eschar Covered ) -Classification - Pressure Ulcer Unstageable -Exudate Amt None Present (0 %) -Wound Margin Distinct, Outline Attached -Granulation Amt None Present (0 %) -Granulation Quality N/A -Slough/Fibrin Yes -Necrosis Amt Large (67-100%) -Necrotic Tissue Type Eschar -Texture (Tara-wound Skin Appearance) Assessed -Moisture (Tara-wound Skin Appearance Dry/Scaly ) -Color (Tara-wound Skin Appearance) Erythema -Temperature (Tara-wound Skin Cool/Cold Appearance) -Tenderness on Palpation (Tara-wound No Skin Appearance) -Ulcer Cleansing HIBICLENS -Foul Odor after Cleansing No -Anesthetic Used 4% Lidocaine Solution #1 L Foot/Toes Amp Site -Combined with other wound No -Current Size (cm) - Length 6.9 -Current Size (cm) - Width 12.6 -Current Size (cm) - Depth 1.1 -Total Square Cm 86.94 -Date of Last Picture (Recall this 06/01/18 field) -Photo Taken Yes -Epithelialization None Present -Tunneling No -Undermining/Tunneling No -Circular Undermining No -Classification - Thickness Full Thickness with Exposed Support Structure -Exudate Amt Medium (34-66%) -Exudate Type Serosanguineous -Wound Margin Distinct, Outline Attached -Granulation Amt None Present (0 %) -Granulation Quality N/A -Slough/Fibrin Yes -Necrosis Amt Large (67-100%) -Necrotic Tissue Type Adherent Slough -Structure Exposed Tendon Fascia Muscle Fat Layer Exposed -Texture (Tara-wound Skin Appearance) Friable -Moisture (Tara-wound Skin Appearance No Abnormality ) -Color (Tara-wound Skin Appearance) Erythema -Temperature (Tara-wound Skin Cool/Cold Appearance) -Tenderness on Palpation (Tara-wound No Skin Appearance) -Ulcer Cleansing HIBICLENS -Foul Odor after Cleansing No -Anesthetic Used 4% Lidocaine Solution [Edema Assessment] -Lower Limb Edema Present No WC - Nurse 2 - General Ulcer CM Notes Start: 06/01/18 11:54 Freq: Status: Active Protocol: Activity Type Activity Date Activity User E-Sign Co-Sign Detail Recorded Client Recorded Date Recorded By Document 06/01/18 12:18 [id number] 06/01/18 12:21 06/01/18 12:18 Wound Center Nurse 2 [Procedure/Treatment] #7 R Lat Foot -Time 12:19 -Correct Patient No -Correct Side, Site, Position No -Correct Procedure No -Procedure Performed No -Wound/Ulcer Outcome Not Healed -Ulcer Cleansing Not Cleansed -Foul Odor after Cleansing No -Bioengineered Tissue No #6 R Lat heel -Time 12:20 -Correct Patient No -Correct Side, Site, Position No -Correct Procedure No -Procedure Performed No #4 R Post Heel -Time 12:20 #1 L Foot/Toes Amp Site -Time 12:20 -Correct Patient Yes -Correct Side, Site, Position Yes -Correct Procedure Yes -Procedure Performed Yes -Type of Procedure Debridement -Clinical Debridement Subcutaneous -Post Debridement Size (cm) - Length 6.8 -Post Debridement Size (cm) - Width 11.5 -Post Debridement Size (cm) - Depth 0.3 -Total Square Cm 78.20 -Wound/Ulcer Outcome Not Healed -Ulcer Cleansing Not Cleansed -Foul Odor after Cleansing No -Bioengineered Tissue No -Bleeding Controlled with NA -Treatment Response Procedure Tolerated Well [See Physician Procedure note for Specifics] Pain Scale: 0-10 Numeric [Pain] -Is Patient Pain Free? Yes Musculoskeletal: No Tenderness to Palpation of Joints or Extremities, - - Left transmetatarsal amputation Neurological: - - Lack of epicritic sensation via light touch bilateral Psych/Mental Status: Normal Affect, Appropriate Debridement Note Post-Debridement Measurements/Treatment WC - Nurse 2 - General Ulcer CM Notes Start: 06/01/18 11:54 Freq: Status: Active Protocol: Activity Type Activity Date Activity User E-Sign Co-Sign Detail Recorded Client Recorded Date Recorded By Document 06/01/18 12:18 [id number] 06/01/18 12:21 06/01/18 12:18 Wound Center Nurse 2 #7 R Lat Foot -Time 12:19 -Correct Patient No -Correct Side, Site, Position No -Correct Procedure No -Procedure Performed No -Wound/Ulcer Outcome Not Healed -Ulcer Cleansing Not Cleansed -Foul Odor after Cleansing No -Bioengineered Tissue No #6 R Lat heel -Time 12:20 -Correct Patient No -Correct Side, Site, Position No -Correct Procedure No -Procedure Performed No #4 R Post Heel -Time 12:20 #1 L Foot/Toes Amp Site -Time 12:20 -Correct Patient Yes -Correct Side, Site, Position Yes -Correct Procedure Yes -Procedure Performed Yes -Type of Procedure Debridement -Clinical Debridement Subcutaneous -Post Debridement Size (cm) - Length 6.8 -Post Debridement Size (cm) - Width 11.5 -Post Debridement Size (cm) - Depth 0.3 -Total Square Cm 78.20 -Wound/Ulcer Outcome Not Healed -Ulcer Cleansing Not Cleansed -Foul Odor after Cleansing No -Bioengineered Tissue No -Bleeding Controlled with NA -Treatment Response Procedure Tolerated Well Pain Scale: 0-10 Numeric Is Patient Pain Free? Yes Wound debrided: Left forefoot Laterality: Left Wound Grade/Stage: jeramy 4 Type of Debridement: Excisional debridement Anesthesia Used: 4% Lidocaine Solution Depth: in the subcutaneous layer Percentage of wound debrided: 100 Instrument Used: #15 blade Tissue Removed: Fibrous, devitalized subcutaneous and tendon tissue, biofilm, slough Severity: Fat Layer Exposed Amount of bleeding with debridement: Mild Bleeding Controlled with: Pressure Patient tolerated procedure well Assessment/Plan Assessment: Howard grade 4 gangrene bilateral. Diabetes with neuropathy. Peripheral vascular disease. Malnutrition. Gait impairment. Leukemia. Other comorbidities Plan: Patient was seen today as courtesy visit for Dr. Mendoza due to May 31 Hol. I reviewed and discussed the case with the patient and his family member today. Debridement was not performed to the right lower extremities appear to be dysvascular and I would like to confirm perfusion prior to performing this. An appointment with Dr. Duran is not possible at this time in a new referral to a local doctor was provided. Pending on feedback and plan he will be considered either for advanced wound care product application to the left foot versus other surgical foot debridement versus a palliative care program. He understands and answered all his questions in regards this today. The left lower extremity was debrided excisionally to remove nonviable subcutaneous and muscle tissue if there was moist and non-adhered. This is to reduce chance of infection and to keep this wound dry and stable. He tolerated this. He has had most of his previous workup performed the [facility]. Notes have been requested. Clinically he appears to be stable and there is no active wet gangrene or infection. I recommend he continues to change the right lower extremity dressing with Betadine gauze as he has been performing to keep the gangrene dry mummified. He understands this is not viable. I recommend changing the left lower extremity dressing daily with Santyl applied in nickel thickness. Bilateral surgical shoes were dispensed last visit to offload and protect the site it is okay to weight-bear to the heels for transfers only in the detention facility will be notified of this. I advised him again not to tighten the straps over the gangrenous portions of his forefoot bilateral. To continue with nutritional supplementation optimize healing; I recommend Gino 1-2 times daily if he is not already taking this. To monitor closely for local and systemic signs of illness which is not noted at this time. To keep pressure off of the heels while resting and lying in bed by floating the lower extremities over pillows. He does have a posterior leg eschar on the right lower extremities is noted stable and well adhered. We reviewed the basics needed to promote wound healing and I answered all his questions. I recommend he follow-up in clinic in [address] Mendoza or call sooner if he has any questions or concerns.
[2018-06-07 14:52] VITALS: BP 113/49; PULSE 102; RESP 18; TEMP 36.6
--- NOTE | 2018-06-07 16:14 | PCM.WC.PN ---
(1) Ulcer of right foot with fat layer exposed Status: Chronic Current Visit: Yes Code(s): L97.512 - Non-pressure chronic ulcer of other part of right foot with fat layer exposed (2) Gangrene of left foot Status: Chronic Current Visit: Yes Code(s): I96 - Gangrene, not elsewhere classified (3) Type 2 diabetes mellitus with diabetic polyneuropathy Status: Chronic Current Visit: Yes Code(s): E11.42 - Type 2 diabetes mellitus with diabetic polyneuropathy (4) Peripheral vascular disease Status: Chronic Current Visit: Yes Code(s): I73.9 - Peripheral vascular disease, unspecified (5) Malnutrition Status: Chronic Current Visit: Yes Code(s): E46 - Unspecified protein-calorie malnutrition (6) Chronic ulcer of left foot with necrosis of bone Status: Chronic Current Visit: Yes Code(s): L97.524 - Non-pressure chronic ulcer of other part of left foot with necrosis of bone (7) Thrombocytopenia Status: Chronic Current Visit: Yes Code(s): D69.6 - Thrombocytopenia, unspecified (8) Iron deficiency anemia Status: Chronic Current Visit: Yes Qualifiers: Code(s): D50.9 - Iron deficiency anemia, unspecified (9) Gangrene of right foot Status: Chronic Current Visit: Yes Code(s): I96 - Gangrene, not elsewhere classified Type of Wound Date of Service: 06/07/18 Chief Complaint: Gangrene to both feet History of Wound: This 82-year-old male presents with bilateral foot gangrene. he was treated with IV antibiotics under the management of infectious disease. He also relates he had some vascular surgery workup and intervention and he does not know the details. This was all completed at the [facility]. His consultation with Dr. Nolan, vascular surgeon is pending. He denies recent odor. He is with the family member today. He denies recent trauma. He wears protective surgical shoes today and is only placing partial weight while transferring. He presents in a wheelchair today. His is concerned that there is some black tissue loosening on the right foot. Progress of Wound: stable left and stable right - Physical Exam Vital Signs Temp Pulse Resp BP 97.8 F 102 H 18 113/49 L 06/07/18 14:52 06/07/18 14:52 06/07/18 14:52 06/07/18 14:52 General: Alert, Oriented x3, Cooperative Extremities: No cyanosis, No edema, No Calf Tenderness, Diminished Peripheral Pulses, - - Capillary refill time is absent to the right foot toes due to eschar mummification of the digits. Skin: Ulcer/ Wound - No purulence, no erythema, no streaking, no odor, no acute signs of infection. The left foot has continued mummified toes with some loosening of the dorsal foot eschar upon debridement there is granulation and fibrous tissue exposed. There is no liquid 5 tissue or purulence identified. The proximal aspect of the posterior right heel wound is also not fully adhered and upon removal today again there is granulation and fibrous tissue exposed without infection. The left dorsal foot continues to granulate in and there is decrease fibrous and eschar tissue to the transmetatarsal amputation stump site, - - The skin is atrophic and without hair bilateral lower extremities Wound Measurements and Assessment WC - Nurse 1 - General Ulcer Measurement Start: 06/01/18 11:54 Freq: Status: Active Protocol: Activity Type Activity Date Activity User E-Sign Co-Sign Detail Recorded Client Recorded Date Recorded By Document 06/07/18 14:52 [id number] 06/07/18 15:04 06/07/18 14:52 Wound Center Nurse 1 [Ulcer Assessment] #7 R Lat Foot -Combined with other wound No -Tunneling No -Undermining/Tunneling No -Circular Undermining No -Classification - Thickness Unclassifiable (Eschar Covered ) -Exudate Amt None Present (0 %) -Wound Margin Distinct, Outline Attached -Granulation Amt None Present (0 %) -Necrosis Amt Large (67-100%) -Necrotic Tissue Type Eschar -Structure Exposed N/A -Texture (Tara-wound Skin Appearance) Assessed -Moisture (Tara-wound Skin Appearance Assessed ) -Color (Tara-wound Skin Appearance) Assessed Erythema -Temperature (Tara-wound Skin No Abnormality Appearance) (Pt Warm) -Tenderness on Palpation (Tara-wound No Skin Appearance) -Foul Odor after Cleansing No #6 R Lat heel -Combined with other wound No -Photo Taken No -Tunneling No -Undermining/Tunneling No -Circular Undermining No -Classification - Thickness Unclassifiable (Eschar Covered ) -Exudate Amt None Present (0 %) -Wound Margin Distinct, Outline Attached -Granulation Amt None Present (0 %) -Necrosis Amt Large (67-100%) -Necrotic Tissue Type Eschar -Structure Exposed N/A -Texture (Tara-wound Skin Appearance) Assessed -Moisture (Tara-wound Skin Appearance Assessed ) -Color (Tara-wound Skin Appearance) Assessed Erythema -Temperature (Tara-wound Skin No Abnormality Appearance) (Pt Warm) -Tenderness on Palpation (Tara-wound No Skin Appearance) -Ulcer Cleansing Rinsed/ Irrigated with Saline -Foul Odor after Cleansing No #4 R Post Heel -Photo Taken No -Tunneling No -Undermining/Tunneling No -Circular Undermining No -Classification - Thickness Unclassifiable (Eschar Covered ) -Exudate Amt None Present (0 %) -Wound Margin Distinct, Outline Attached -Granulation Amt None Present (0 %) -Necrosis Amt Large (67-100%) -Necrotic Tissue Type Eschar -Structure Exposed N/A -Texture (Tara-wound Skin Appearance) Assessed -Moisture (Tara-wound Skin Appearance Assessed ) -Color (Tara-wound Skin Appearance) Assessed -Temperature (Tara-wound Skin No Abnormality Appearance) (Pt Warm) -Tenderness on Palpation (Tara-wound No Skin Appearance) -Ulcer Cleansing Rinsed/ Irrigated with Saline -Foul Odor after Cleansing No #1 L Foot/Toes Amp Site -Combined with other wound No -Current Size (cm) - Length 6.2 -Current Size (cm) - Width 12.7 -Current Size (cm) - Depth 0.5 -Total Square Cm 78.74 -Photo Taken No -Tunneling No -Undermining/Tunneling No -Circular Undermining No -Classification - Howard Grading ( Grade 5 Diabetic Ulcer) -Exudate Amt Medium (34-66%) -Exudate Type Serosanguineous -Wound Margin Thickened & Rolled Under -Granulation Amt Medium (34-66%) -Granulation Quality [place] -Slough/Fibrin Yes -Necrosis Amt Medium (34-66%) -Necrotic Tissue Type Adherent Slough -Structure Exposed N/A -Texture (Tara-wound Skin Appearance) Assessed -Moisture (Tara-wound Skin Appearance Assessed ) -Color (Tara-wound Skin Appearance) Erythema -Temperature (Tara-wound Skin No Abnormality Appearance) (Pt Warm) -Tenderness on Palpation (Tara-wound No Skin Appearance) -Ulcer Cleansing Rinsed/ Irrigated with Saline -Foul Odor after Cleansing No -Anesthetic Used 4% Lidocaine Solution WC - Nurse 2 - General Ulcer CM Notes Start: 06/01/18 11:54 Freq: Status: Active Protocol: Activity Type Activity Date Activity User E-Sign Co-Sign Detail Recorded Client Recorded Date Recorded By Document 06/07/18 15:20 TM [id number] 06/07/18 15:26 06/07/18 15:20 Wound Center Nurse 2 [Procedure/Treatment] #7 R Lat Foot -Time 15:23 -Correct Patient Yes -Correct Side, Site, Position Yes -Correct Procedure Yes -Procedure Performed Yes -Type of Procedure Debridement -Clinical Debridement Subcutaneous -Post Debridement Size (cm) - Length 8.6 -Post Debridement Size (cm) - Width 11.5 -Post Debridement Size (cm) - Depth 0.1 -Total Square Cm 98.90 -Wound/Ulcer Outcome Not Healed -Ulcer Cleansing Rinsed/ Irrigated with Saline -Foul Odor after Cleansing No -Bioengineered Tissue No -Topical Lidocaine (%) 5 -Bleeding Controlled with Pressure -Treatment Response Procedure Tolerated Well #6 R Lat heel -Time 15:23 -Correct Patient Yes -Correct Side, Site, Position Yes -Correct Procedure Yes -Procedure Performed Yes -Type of Procedure Debridement -Clinical Debridement Subcutaneous -Post Debridement Size (cm) - Length 1.5 -Post Debridement Size (cm) - Width 1.4 -Post Debridement Size (cm) - Depth 0.1 -Total Square Cm 2.10 -Wound/Ulcer Outcome Not Healed -Ulcer Cleansing Rinsed/ Irrigated with Saline -Foul Odor after Cleansing No -Bioengineered Tissue No -Topical Lidocaine (%) 5 -Bleeding Controlled with Pressure -Treatment Response Procedure Tolerated Well #4 R Post Heel -Time 15:24 -Correct Patient Yes -Correct Side, Site, Position Yes -Correct Procedure Yes -Procedure Performed Yes -Type of Procedure Debridement -Clinical Debridement Subcutaneous -Post Debridement Size (cm) - Length 6.8 -Post Debridement Size (cm) - Width 3.4 -Post Debridement Size (cm) - Depth 0.1 -Total Square Cm 23.12 -Wound/Ulcer Outcome Not Healed -Ulcer Cleansing Rinsed/ Irrigated with Saline -Foul Odor after Cleansing No -Bioengineered Tissue No -Topical Lidocaine (%) 5 -Bleeding Controlled with Pressure -Treatment Response Procedure Tolerated Well #1 L Foot/Toes Amp Site -Time 15:24 -Correct Patient Yes -Correct Side, Site, Position Yes -Correct Procedure Yes -Procedure Performed Yes -Type of Procedure Debridement -Clinical Debridement Subcutaneous -Post Debridement Size (cm) - Length 6.3 -Post Debridement Size (cm) - Width 12.5 -Post Debridement Size (cm) - Depth 0.5 -Total Square Cm 78.75 -Wound/Ulcer Outcome Not Healed -Ulcer Cleansing Rinsed/ Irrigated with Saline -Foul Odor after Cleansing No -Bioengineered Tissue No -Bleeding Controlled with NA -Treatment Response Procedure Tolerated Well [See Physician Procedure note for Specifics] Pain Scale: 0-10 Numeric [Pain] -Is Patient Pain Free? Yes Musculoskeletal: No Tenderness to Palpation of Joints or Extremities, Muscle Wasting, - - Left transmetatarsal amputation. Muscle atrophy is apparent. We will treat as noted Neurological: - - Lack of epicritic sensation light touch bilateral lower extremities Psych/Mental Status: Normal Affect, Appropriate Debridement Note Post-Debridement Measurements/Treatment WC - Nurse 2 - General Ulcer CM Notes Start: 06/01/18 11:54 Freq: Status: Active Protocol: Activity Type Activity Date Activity User E-Sign Co-Sign Detail Recorded Client Recorded Date Recorded By Document 06/01/18 12:18 [id number] 06/01/18 12:21 Document 06/07/18 15:20 [id number] 06/07/18 15:26 06/01/18 06/07/18 12:18 15:20 Wound Center Nurse 2 #7 R Lat Foot -Time 12:19 15:23 -Correct Patient No Yes -Correct Side, Site, Position No Yes -Correct Procedure No Yes -Procedure Performed No Yes -Type of Procedure Debridement -Clinical Debridement Subcutaneous -Post Debridement Size (cm) - Length 8.6 -Post Debridement Size (cm) - Width 11.5 -Post Debridement Size (cm) - Depth 0.1 -Total Square Cm 98.90 -Wound/Ulcer Outcome Not Healed Not Healed -Ulcer Cleansing Not Cleansed Rinsed/ Irrigated with Saline -Foul Odor after Cleansing No No -Bioengineered Tissue No No -Topical Lidocaine (%) 5 -Bleeding Controlled with Pressure -Treatment Response Procedure Tolerated Well #6 R Lat heel -Time 12:20 15:23 -Correct Patient No Yes -Correct Side, Site, Position No Yes -Correct Procedure No Yes -Procedure Performed No Yes -Type of Procedure Debridement -Clinical Debridement Subcutaneous -Post Debridement Size (cm) - Length 1.5 -Post Debridement Size (cm) - Width 1.4 -Post Debridement Size (cm) - Depth 0.1 -Total Square Cm 2.10 -Wound/Ulcer Outcome Not Healed -Ulcer Cleansing Rinsed/ Irrigated with Saline -Foul Odor after Cleansing No -Bioengineered Tissue No -Topical Lidocaine (%) 5 -Bleeding Controlled with Pressure -Treatment Response Procedure Tolerated Well #4 R Post Heel -Time 12:20 15:24 -Correct Patient Yes -Correct Side, Site, Position Yes -Correct Procedure Yes -Procedure Performed Yes -Type of Procedure Debridement -Clinical Debridement Subcutaneous -Post Debridement Size (cm) - Length 6.8 -Post Debridement Size (cm) - Width 3.4 -Post Debridement Size (cm) - Depth 0.1 -Total Square Cm 23.12 -Wound/Ulcer Outcome Not Healed -Ulcer Cleansing Rinsed/ Irrigated with Saline -Foul Odor after Cleansing No -Bioengineered Tissue No -Topical Lidocaine (%) 5 -Bleeding Controlled with Pressure -Treatment Response Procedure Tolerated Well #1 L Foot/Toes Amp Site -Time 12:20 15:24 -Correct Patient Yes Yes -Correct Side, Site, Position Yes Yes -Correct Procedure Yes Yes -Procedure Performed Yes Yes -Type of Procedure Debridement Debridement -Clinical Debridement Subcutaneous Subcutaneous -Post Debridement Size (cm) - Length 6.8 6.3 -Post Debridement Size (cm) - Width 11.5 12.5 -Post Debridement Size (cm) - Depth 0.3 0.5 -Total Square Cm 78.20 78.75 -Wound/Ulcer Outcome Not Healed Not Healed -Ulcer Cleansing Not Cleansed Rinsed/ Irrigated with Saline -Foul Odor after Cleansing No No -Bioengineered Tissue No No -Bleeding Controlled with NA NA -Treatment Response Procedure Procedure Tolerated Well Tolerated Well Pain Scale: 0-10 Numeric Is Patient Pain Free? Yes Yes Wound debrided: posterior heel Laterality: Right Wound Grade/Stage: howard grade 5 Type of Debridement: Excisional debridement Anesthesia Used: 5% Lidocaine Gel Depth: in the subcutaneous layer Percentage of wound debrided: - - 25% Instrument Used: #15 blade, Forceps Tissue Removed: fibrous, devitalized subcutaneous, biofilm, slough, eschar Severity: Fat Layer Exposed Amount of bleeding with debridement: Mild Bleeding Controlled with: Pressure Patient tolerated procedure well - Additional Wound Wound debrided: forefoot dorsal Laterality: Right Wound Grade/Stage: howard grade 5 Type of Debridement: Excisional debridement Anesthesia Used: 5% Lidocaine Gel Depth: in the subcutaneous layer Percentage of wound debrided: - - 25% Instrument Used: #15 blade, Forceps Tissue Removed: fibrous, devitalized subcutaneous, biofilm, slough, eschar Severity: Fat Layer Exposed Amount of bleeding with debridement: Mild Bleeding Controlled with: Pressure Patient tolerated procedure: Patient tolerated procedure well - Additional Wound Wound debrided: dorsal foot (transmetatarsal amputation site) Laterality: Left Wound Grade/Stage: grade 4 Type of Debridement: Excisional debridement Anesthesia Used: 5% Lidocaine Gel Depth: in the subcutaneous layer Percentage of wound debrided: 100 Instrument Used: #15 blade, Forceps Tissue Removed: fibrous, devitalized subcutaneous, biofilm, slough Severity: Fat Layer Exposed Amount of bleeding with debridement: Mild Bleeding Controlled with: Pressure Patient tolerated procedure: Patient tolerated procedure well Assessment/Plan Active Problems (Last Reviewed 03/13/18 @ 15:16 by Suzanna Holland) Gangrene of right foot (Chronic) Gangrene of left foot (Chronic) Type 2 diabetes mellitus with diabetic polyneuropathy (Chronic) Peripheral vascular disease (Chronic) Malnutrition (Chronic) Chronic ulcer of left foot with necrosis of bone (Chronic) Ulcer of right foot with fat layer exposed (Chronic) Thrombocytopenia (Chronic) Iron deficiency anemia (Chronic) Assessment: Howard grade 4 with gangrene left and grade 5 right. grangrene bilateral. Diabetes with neuropathy. Peripheral vascular disease. Malnutrition. Gait impairment. Leukemia. Other comorbidities Plan: I reviewed and discussed the case with the patient and his family member today. Debridement was performed as noted in the clinical panel. He prefers to see a vascular surgeon in [place] and is amenable to see Dr. Nolan. Pending on feedback and plan he will be considered either for advanced wound care product application to the left foot versus other surgical foot debridement versus a palliative care program.The left lower extremity was debrided excisionally to remove nonviable subcutaneous and muscle tissue if there was moist and non-adhered. The right foot eschar is now loosening and is moist therefore debridement of 25% of each site was performed today. His wound is progressing and I recommend a dressing change. I recommend applying Santyl to the right heel and dorsal right foot and to continue with Betadine gauze placed to the mummified toes on the right foot. I advised him to continue Santyl dressing changes to the left foot as previously done daily. Clinically he appears to be stable and there is no active wet gangrene or infection. Bilateral surgical shoes were dispensed last visit to offload and protect the site it is okay to weight-bear to the heels for transfers or short duration to walk across a single room only in the custodial facility will be notified of this. I advised him again not to tighten the straps over the gangrenous portions of his forefoot bilateral. To continue with nutritional supplementation optimize healing; I recommend Gino 1-2 times daily if he is not already taking this. To monitor closely for local and systemic signs of illness which is not noted at this time. To keep pressure off of the heels while resting and lying in bed by floating the lower extremities over pillows. We reviewed the basics needed to promote wound healing and I answered all his questions. I recommend he follow-up in clinic in 1 week or call sooner if he has any questions or concerns.
[2018-06-21 14:51] VITALS: BP 108/63; PULSE 79; RESP 18; TEMP 36.1
--- NOTE | 2018-06-21 15:42 | PN.PCM_ITS ---
(1) Ulcer of right foot with fat layer exposed Status: Chronic Current Visit: Yes Code(s): L97.512 - Non-pressure chronic ulcer of other part of right foot with fat layer exposed (2) Gangrene of left foot Status: Chronic Current Visit: Yes Code(s): I96 - Gangrene, not elsewhere classified (3) Type 2 diabetes mellitus with diabetic polyneuropathy Status: Chronic Current Visit: Yes Code(s): E11.42 - Type 2 diabetes mellitus with diabetic polyneuropathy (4) Peripheral vascular disease Status: Chronic Current Visit: Yes Code(s): I73.9 - Peripheral vascular disease, unspecified (5) Malnutrition Status: Chronic Current Visit: Yes Code(s): E46 - Unspecified protein- calorie malnutrition (6) Chronic ulcer of left foot with necrosis of bone Status: Chronic Current Visit: Yes Code(s): L97.524 - Non-pressure chronic ulcer of other part of left foot with necrosis of bone (7) Thrombocytopenia Status: Chronic Current Visit: Yes Code(s): D69.6 - Thrombocytopenia, unspecified (8) Iron deficiency anemia Status: Chronic Current Visit: Yes Qualifiers: Code(s): D50.9 - Iron deficiency anemia, unspecified (9) Gangrene of right foot Status: Chronic Current Visit: Yes Code(s): I96 - Gangrene, not elsewhere classified Type of Wound Date of Service: 06/21/18 Chief Complaint: Gangrene to both feet with bilateral foot ulcers with fat tendon and bone exposed History of Wound: This 82-year-old male presents with bilateral foot gangrene. he was treated with IV antibiotics under the management of infectious disease. He also relates he had some vascular surgery workup. He did complete his vascular surgery consultation with Dr. Nolan and an angiogram with potential intervention is scheduled for June 30, 2018. He is with the family member today. He denies recent trauma. He wears protective surgical shoes today and is only placing partial weight while transferring. He presents in a wheelchair today. He has been very diligent about offloading the heel ulcer site which is the most painful. Progress of Wound: stable left and stable right - Physical Exam Vital Signs Temp Pulse Resp BP 96.9 F L 79 18 108/63 06/21/18 14:51 06/21/18 14:51 06/21/18 14:51 06/21/18 14:51 General: Alert, Oriented x3, Cooperative Extremities: No cyanosis, Capillary Refill Less than 3 Seconds, No Calf Tenderness - Negative Augustine and Weaver bilateral, Diminished Peripheral Pulses Skin: Ulcer/ Wound - No purulence, no erythema, streaking, no odor, no acute signs of infection bilateral lower extremity. There is mummified dry gangrene toes to the right foot and well adhered eschar to the right heel and lateral right midfoot. There is significant reduction in eschar to the left foot and the remaining bed remains granular fibrous tissue exposed tendon and bone. There is also exposed tendon and bone to the proximal dorsal aspect of the right foot adjacent to the mummified toes, - - The skin is atrophic and hairless bilateral lower extremity Wound Measurements and Assessment WC - Nurse 1 - General Ulcer Measurement Start: 06/01/18 11:54 Freq: Status: Active Protocol: Activity Type Activity Date Activity User E-Sign Co-Sign Detail Recorded Client Recorded Date Recorded By Document 06/21/18 14:51 DL [id number] 06/21/18 15:05 DL 06/21/18 14:51 Wound Center Nurse 1 [Ulcer Assessment] #1 L Foot/Toes Amp Site -Current Size (cm) - Length 7 -Current Size (cm) - Width 11 -Current Size (cm) - Depth 1.3 -Total Square Cm 77 -Photo Taken No -Exudate Amt Large (67-100%) -Exudate Type Serosanguineous -Wound Margin Distinct, Outline Attached -Granulation Amt Large (67-100%) -Granulation Quality Red -Necrosis Amt Small (1-33%) -Necrotic Tissue Type Adherent Slough -Structure Exposed N/A -Texture (Tara-wound Skin Appearance) Localized Edema -Moisture (Tara-wound Skin Appearance No Abnormality ) -Color (Tara-wound Skin Appearance) Mottled -Temperature (Tara-wound Skin No Abnormality Appearance) (Pt Warm) -Tenderness on Palpation (Tara-wound Yes Skin Appearance) -Ulcer Cleansing Wound Cleanser -Foul Odor after Cleansing No -Anesthetic Used 4% Lidocaine Solution WC - Nurse 2 - General Ulcer CM Notes Start: 06/01/18 11:54 Freq: Status: Active Protocol: Activity Type Activity Date Activity User E-Sign Co-Sign Detail Recorded Client Recorded Date Recorded By Document 06/21/18 15:23 [id number] 06/21/18 15:28 06/21/18 15:23 Wound Center Nurse 2 [Procedure/Treatment] #7 R Lat Foot -Time 15:25 -Correct Patient Yes -Correct Side, Site, Position Yes -Correct Procedure Yes -Procedure Performed Yes -Type of Procedure Debridement -Clinical Debridement Subcutaneous -Post Debridement Size (cm) - Length 2.8 -Post Debridement Size (cm) - Width 5 -Post Debridement Size (cm) - Depth 0.3 -Total Square Cm 14.0 -Wound/Ulcer Outcome Not Healed -Bleeding Controlled with Pressure -Other 20% debrided -Treatment Response Procedure Tolerated Well #6 R Lat heel -Correct Patient No -Correct Side, Site, Position No -Correct Procedure No -Procedure Performed No #4 R Post Heel -Correct Patient No -Correct Side, Site, Position No -Correct Procedure No -Procedure Performed No #1 L Foot/Toes Amp Site -Time 15:23 -Correct Patient Yes -Correct Side, Site, Position Yes -Correct Procedure Yes -Procedure Performed Yes -Type of Procedure Debridement -Clinical Debridement Subcutaneous -Post Debridement Size (cm) - Length 7 -Post Debridement Size (cm) - Width 11.1 -Post Debridement Size (cm) - Depth 1.3 -Total Square Cm 77.7 -Wound/Ulcer Outcome Not Healed -Ulcer Cleansing Rinsed/ Irrigated with Saline -Foul Odor after Cleansing No -Bioengineered Tissue No -Bleeding Controlled with Pressure -Treatment Response Procedure Tolerated Well [See Physician Procedure note for Specifics] Pain Scale: 0-10 Numeric [Pain] -Is Patient Pain Free? Yes Musculoskeletal: No Tenderness to Palpation of Joints or Extremities, Muscle Wasting, - - Left transmetatarsal amputation Lymphatic: - - Pain with right heel compression. The eschar is well adhered without any bogginess or loosening noted Neurological: - - Lack of epicritic sensation bilateral lower extremity Psych/Mental Status: Normal Affect, Appropriate Debridement Note Post-Debridement Measurements/Treatment WC - Nurse 2 - General Ulcer CM Notes Start: 06/01/18 11:54 Freq: Status: Active Protocol: Activity Type Activity Date Activity User E-Sign Co-Sign Detail Recorded Client Recorded Date Recorded By Document 06/01/18 12:18 [id number] 06/01/18 12:21 Document 06/07/18 15:20 [id number] 06/07/18 15:26 Document 06/21/18 15:23 [id number] 06/21/18 15:28 06/01/18 06/07/18 06/21/18 12:18 15:20 15:23 Wound Center Nurse 2 #7 R Lat Foot -Time 12:19 15:23 15:25 -Correct Patient No Yes Yes -Correct Side, Site, Position No Yes Yes -Correct Procedure No Yes Yes -Procedure Performed No Yes Yes -Type of Procedure Debridement Debridement -Clinical Debridement Subcutaneous Subcutaneous -Post Debridement Size (cm) - Length 8.6 2.8 -Post Debridement Size (cm) - Width 11.5 5 -Post Debridement Size (cm) - Depth 0.1 0.3 -Total Square Cm 98.90 14.0 -Wound/Ulcer Outcome Not Healed Not Healed Not Healed -Ulcer Cleansing Not Cleansed Rinsed/ Irrigated with Saline -Foul Odor after Cleansing No No -Bioengineered Tissue No No -Topical Lidocaine (%) 5 -Bleeding Controlled with Pressure Pressure -Other 20% debrided -Treatment Response Procedure Procedure Tolerated Well Tolerated Well #6 R Lat heel -Time 12:20 15:23 -Correct Patient No Yes No -Correct Side, Site, Position No Yes No -Correct Procedure No Yes No -Procedure Performed No Yes No -Type of Procedure Debridement -Clinical Debridement Subcutaneous -Post Debridement Size (cm) - Length 1.5 -Post Debridement Size (cm) - Width 1.4 -Post Debridement Size (cm) - Depth 0.1 -Total Square Cm 2.10 -Wound/Ulcer Outcome Not Healed -Ulcer Cleansing Rinsed/ Irrigated with Saline -Foul Odor after Cleansing No -Bioengineered Tissue No -Topical Lidocaine (%) 5 -Bleeding Controlled with Pressure -Treatment Response Procedure Tolerated Well #4 R Post Heel -Time 12:20 15:24 -Correct Patient Yes No -Correct Side, Site, Position Yes No -Correct Procedure Yes No -Procedure Performed Yes No -Type of Procedure Debridement -Clinical Debridement Subcutaneous -Post Debridement Size (cm) - Length 6.8 -Post Debridement Size (cm) - Width 3.4 -Post Debridement Size (cm) - Depth 0.1 -Total Square Cm 23.12 -Wound/Ulcer Outcome Not Healed -Ulcer Cleansing Rinsed/ Irrigated with Saline -Foul Odor after Cleansing No -Bioengineered Tissue No -Topical Lidocaine (%) 5 -Bleeding Controlled with Pressure -Treatment Response Procedure Tolerated Well #1 L Foot/Toes Amp Site -Time 12:20 15:24 15:23 -Correct Patient Yes Yes Yes -Correct Side, Site, Position Yes Yes Yes -Correct Procedure Yes Yes Yes -Procedure Performed Yes Yes Yes -Type of Procedure Debridement Debridement Debridement -Clinical Debridement Subcutaneous Subcutaneous Subcutaneous -Post Debridement Size (cm) - Length 6.8 6.3 7 -Post Debridement Size (cm) - Width 11.5 12.5 11.1 -Post Debridement Size (cm) - Depth 0.3 0.5 1.3 -Total Square Cm 78.20 78.75 77.7 -Wound/Ulcer Outcome Not Healed Not Healed Not Healed -Ulcer Cleansing Not Cleansed Rinsed/ Rinsed/ Irrigated with Irrigated with Saline Saline -Foul Odor after Cleansing No No No -Bioengineered Tissue No No No -Bleeding Controlled with NA NA Pressure -Treatment Response Procedure Procedure Procedure Tolerated Well Tolerated Well Tolerated Well Pain Scale: 0-10 Numeric Is Patient Pain Free? Yes Yes Yes Wound debrided: dorsal foot Laterality: Right Wound Grade/Stage: howard grade 5 Type of Debridement: Excisional debridement Anesthesia Used: 4% Lidocaine Solution Depth: in the subcutaneous layer Percentage of wound debrided: 20 Instrument Used: #15 blade Tissue Removed: fibrous, devitalized subcutaneous, biofilm, slough Severity: Fat Layer Exposed Amount of bleeding with debridement: Mild Bleeding Controlled with: Pressure Patient tolerated procedure well - Additional Wound Wound debrided: dorsal foot/amputation stump site Laterality: Left Wound Grade/Stage: grade 4 Type of Debridement: Excisional debridement Anesthesia Used: 4% Lidocaine Solution Depth: in the subcutaneous layer Percentage of wound debrided: 100 Instrument Used: #15 blade Tissue Removed: fibrous, devitalized subcutaneous, biofilm, slough Severity: Fat Layer Exposed Amount of bleeding with debridement: Mild Bleeding Controlled with: Pressure Patient tolerated procedure: Patient tolerated procedure well Assessment/Plan Active Problems (Last Reviewed 03/13/18 @ 15:16 by Suzanna Holland) Gangrene of right foot (Chronic) Gangrene of left foot (Chronic) Type 2 diabetes mellitus with diabetic polyneuropathy (Chronic) Peripheral vascular disease (Chronic) Malnutrition (Chronic) Chronic ulcer of left foot with necrosis of bone (Chronic) Ulcer of right foot with fat layer exposed (Chronic) Thrombocytopenia (Chronic) Iron deficiency anemia (Chronic) Assessment: Howard grade 4 with gangrene left and grade 5 right. grangrene bilateral. Diabetes with neuropathy. Peripheral vascular disease. Malnutrition. Gait impairment. Leukemia. Other comorbidities Plan: I reviewed and discussed the case with the patient and his family member today. Debridement was performed as noted in the clinical panel. He prefers to see a vascular surgeon in [place] and is amenable to see Dr. Nolan. He is scheduled for an arterial angiogram on June 30, 2018 with potential intervention. Pending on feedback and plan he will be considered either for advanced wound care product application to the left foot versus other surgical foot debridement versus a palliative care program.The left lower extremity was debrided excisionally to remove nonviable subcutaneous and muscle tissue if there was moist and non-adhered. The right foot eschar is now loosening and is moist therefore debridement of 20% of each site was performed today. His wound is progressing and I recommend a dressing change. I recommend applying Santyl to the right heel and dorsal right foot and to continue with Betadine gauze placed to the mummified toes on the right foot. I advised him to continue Santyl dressing changes to the left foot as previously done daily. Clinically he appears to be stable and there is no active wet gangrene or infection. Bilateral surgical shoes were dispensed previously to offload and protect the site it is okay to weight-bear to the heels for transfers or short duration to walk across a single room only in the [facility] facility will be notified of this. I advised him again not to tighten the straps over the gangrenous portions of his forefoot bilateral. To continue with nutritional supplementation optimize healing; I recommend Gino 1-2 times daily if he is not already taking this. To monitor closely for local and systemic signs of illness which is not noted at this time. To keep pressure off of the heels while resting and lying in bed by floating the lower extremities over pillows. We reviewed the basics needed to promote wound healing and I answered all his questions. I recommend he follow-up in clinic in 1 week or call sooner if he has any questions or concerns.
== END 2018-06-27 23:59 ==
LOC: WC 15:00
PROVIDERS: Family Provider Family Medicine Geriatric Medicine; PCP Family Medicine Geriatric Medicine; Visit Provider Podiatrist
DX: E11.621 Type 2 diabetes mellitus with foot ulcer (principal); E11.42 Type 2 diabetes mellitus with diabetic polyneuropathy; C91.10 Chronic lymphocytic leukemia of B-cell type not having achieved remission; E11.52 Type 2 diabetes mellitus with diabetic peripheral angiopathy with gangrene; I96 Gangrene, not elsewhere classified; L97.412 Non-pressure chronic ulcer of right heel and midfoot with fat layer exposed; L97.522 Non-pressure chronic ulcer of other part of left foot with fat layer exposed; L97.512 Non-pressure chronic ulcer of other part of right foot with fat layer exposed; E11.51 Type 2 diabetes mellitus with diabetic peripheral angiopathy without gangrene; D69.6 Thrombocytopenia, unspecified; D50.9 Iron deficiency anemia, unspecified
CPT/HCPCS: 11042; 11045; 97602

== ENCOUNTER 2018-07-05 15:30 | Outpatient (RCR) | payer MEDICARE, OTHER, SELFPAY ==
[2018-06-28 00:59] VITALS: BP 108/63; PULSE 79; RESP 18; TEMP 36.1
[2018-06-28 15:19] VITALS: BP 109/52; PULSE 87; RESP 16; TEMP 35.7
--- NOTE | 2018-06-29 21:36 | PN.PCM_ITS ---
(1) Chronic ulcer of left foot with necrosis of bone Status: Chronic Current Visit: Yes Code(s): L97.524 - Non-pressure chronic ulcer of other part of left foot with necrosis of bone (2) Chronic ulcer of left foot with necrosis of muscle Status: Chronic Current Visit: Yes Code(s): L97.523 - Non-pressure chronic ulcer of other part of left foot with necrosis of muscle (3) Gangrene of right foot Status: Chronic Current Visit: Yes Code(s): I96 - Gangrene, not elsewhere classified (4) Gangrene of left foot Status: Chronic Current Visit: Yes Code(s): I96 - Gangrene, not elsewhere classified (5) Amputation of left foot with complication Status: Chronic Current Visit: Yes Qualifiers: Code(s): S98.912A - Complete traumatic amputation of left foot, level unspecified, initial encounter (6) Type 2 diabetes mellitus with diabetic polyneuropathy Status: Chronic Current Visit: Yes Code(s): E11.42 - Type 2 diabetes mellitus with diabetic polyneuropathy (7) Peripheral vascular disease Status: Chronic Current Visit: Yes Code(s): I73.9 - Peripheral vascular disease, unspecified (8) Malnutrition Status: Chronic Current Visit: Yes Code(s): E46 - Unspecified protein- calorie malnutrition (9) Histoplasma capsulatum pneumonia Status: Chronic Current Visit: Yes Code(s): B39.2 - Pulmonary histoplasmosis capsulati, unspecified Type of Wound Date of Service: 06/28/18 Chief Complaint: Gangrene to both feet with bilateral foot ulcers with fat tendon and bone exposed History of Wound: This 82-year-old male presents with bilateral foot gangrene. he was treated with IV antibiotics under the management of infectious disease. He also relates he had some vascular surgery workup. He did complete his vascular surgery consultation with Dr. Nolan and an angiogram with potential intervention is scheduled for June 30, 2018. He is with the family member today. He denies recent trauma. He wears protective surgical shoes today and is only placing partial weight while transferring. He presents in a wheelchair today. He has been very diligent about offloading the heel ulcer site which is the most painful. Progress of Wound: stable left and stable right - Physical Exam Vital Signs Temp Pulse Resp BP 96.2 F L 87 16 109/52 L 08/01/18 15:19 06/28/18 15:19 06/28/18 15:19 06/28/18 15:19 General: Alert, Oriented x3, Cooperative Extremities: No cyanosis, No edema, Capillary Refill Less than 3 Seconds, No Calf Tenderness - Negative Augustine and Weaver sign bilateral, Diminished Peripheral Pulses, - - Left transmetatarsal amputation site noted Skin: Ulcer/ Wound - No purulence, no erythema, skin, no odor, no infection. Please continue well adhered aspect of the posterior right heel and lateral foot. There are mummified 2, 3, 4, 5 digits and partial progressive hallux of the right foot. The dorsal forefoot has exposed tendon bone granulation fibrous tissue. The left foot has decreased eschar noted with increased dorsal forefoot granulation tissue there still continues with fibrous and devitalized tendon and bone to the left foot. The peripheral skin is hairless and atrophic bilateral Wound Measurements and Assessment WC - Nurse 1 - General Ulcer Measurement Start: 06/28/18 15:19 Freq: Status: Active Protocol: Activity Type Activity Date Activity User E-Sign Co-Sign Detail Recorded Client Recorded Date Recorded By Document 06/28/18 15:19 [id number] 06/28/18 15:35 KATHLEEN 06/28/18 15:19 Wound Center Nurse 1 [Ulcer Assessment] #7 R Lat Foot -Combined with other wound No -Current Size (cm) - Length 2 -Current Size (cm) - Width 1 -Current Size (cm) - Depth 0.1 -Total Square Cm 2 -Photo Taken No -Undermining/Tunneling No -Circular Undermining No -Exudate Amt None Present (0 %) -Granulation Amt None Present (0 %) -Slough/Fibrin Yes -Necrosis Amt Large (67-100%) -Necrotic Tissue Type Eschar -Structure Exposed N/A -Texture (Tara-wound Skin Appearance) Assessed -Moisture (Tara-wound Skin Appearance Assessed ) Dry/Scaly -Color (Tara-wound Skin Appearance) Assessed Rubor -Temperature (Tara-wound Skin No Abnormality Appearance) (Pt Warm) -Tenderness on Palpation (Tara-wound No Skin Appearance) -Ulcer Cleansing Wound Cleanser -Foul Odor after Cleansing No -Anesthetic Used 4% Lidocaine Solution #6 R Lat heel -Combined with other wound No -Current Size (cm) - Length 1.7 -Current Size (cm) - Width 1.5 -Current Size (cm) - Depth 0.1 -Total Square Cm 2.55 -Photo Taken No -Epithelialization None Present -Tunneling No -Undermining/Tunneling No -Circular Undermining No -Exudate Amt None Present (0 %) -Granulation Amt None Present (0 %) -Slough/Fibrin Yes -Necrosis Amt Large (67-100%) -Necrotic Tissue Type Eschar -Structure Exposed N/A -Texture (Tara-wound Skin Appearance) Assessed -Moisture (Tara-wound Skin Appearance Assessed ) Dry/Scaly -Color (Tara-wound Skin Appearance) Assessed Rubor -Temperature (Tara-wound Skin No Abnormality Appearance) (Pt Warm) -Ulcer Cleansing Not Cleansed #4 R Post Heel -Combined with other wound No -Current Size (cm) - Length 8 -Current Size (cm) - Width 5.2 -Current Size (cm) - Depth 0.1 -Total Square Cm 41.6 -Photo Taken No -Epithelialization None Present -Tunneling No -Undermining/Tunneling No -Circular Undermining No -Exudate Amt None Present (0 %) -Wound Margin Flat & Intact -Granulation Amt None Present (0 %) -Slough/Fibrin Yes -Necrosis Amt Large (67-100%) -Necrotic Tissue Type Eschar -Structure Exposed N/A -Texture (Tara-wound Skin Appearance) Assessed -Moisture (Tara-wound Skin Appearance Assessed ) Dry/Scaly -Color (Tara-wound Skin Appearance) Assessed -Temperature (Tara-wound Skin No Abnormality Appearance) (Pt Warm) -Tenderness on Palpation (Tara-wound No Skin Appearance) -Ulcer Cleansing Not Cleansed #1 L Foot/Toes Amp Site -Combined with other wound No -Current Size (cm) - Length 6.5 -Current Size (cm) - Width 12 -Current Size (cm) - Depth 0.2 -Total Square Cm 78.0 -Photo Taken No -Epithelialization None Present -Tunneling No -Undermining/Tunneling No -Circular Undermining No -Exudate Amt Medium (34-66%) -Exudate Type Serosanguineous -Wound Margin Flat & Intact -Granulation Amt Medium (34-66%) -Granulation Quality Red -Slough/Fibrin Yes -Necrosis Amt Medium (34-66%) -Necrotic Tissue Type Adherent Slough -Structure Exposed Tendon N/A -Texture (Tara-wound Skin Appearance) Assessed -Moisture (Tara-wound Skin Appearance Assessed ) Dry/Scaly -Color (Tara-wound Skin Appearance) Assessed Rubor -Temperature (Tara-wound Skin No Abnormality Appearance) (Pt Warm) -Tenderness on Palpation (Tara-wound No Skin Appearance) -Ulcer Cleansing Wound Cleanser -Foul Odor after Cleansing No -Anesthetic Used 4% Lidocaine Solution [Edema Assessment] -Lower Limb Edema Present NA WC - Nurse 2 - General Ulcer CM Notes Start: 06/28/18 15:19 Freq: Status: Active Protocol: Activity Type Activity Date Activity User E-Sign Co-Sign Detail Recorded Client Recorded Date Recorded By Document 06/28/18 16:06 KATHLEEN [id number] 06/28/18 16:08 KATHLEEN 06/28/18 16:06 Wound Center Nurse 2 [Procedure/Treatment] #7 R Lat Foot -Correct Patient No -Correct Side, Site, Position No -Correct Procedure No -Procedure Performed No #6 R Lat heel -Correct Patient No -Correct Side, Site, Position No -Correct Procedure No -Procedure Performed No #4 R Post Heel -Correct Patient No -Correct Side, Site, Position No -Correct Procedure No -Procedure Performed No #2 R Foot/Toes Cluster -Time 16:07 -Correct Patient Yes -Correct Side, Site, Position Yes -Correct Procedure Yes -Procedure Performed Yes -Type of Procedure Debridement -Clinical Debridement Subcutaneous -Post Debridement Size (cm) - Length 3.7 -Post Debridement Size (cm) - Width 2.1 -Post Debridement Size (cm) - Depth 0.2 -Total Square Cm 7.77 -Wound/Ulcer Outcome Not Healed -Ulcer Cleansing Rinsed/ Irrigated with Saline -Foul Odor after Cleansing No -Bioengineered Tissue No -Bleeding Controlled with Pressure -Treatment Response Procedure Tolerated Well #1 L Foot/Toes Amp Site -Time 16:07 -Correct Patient Yes -Correct Side, Site, Position Yes -Correct Procedure Yes -Procedure Performed Yes -Type of Procedure Debridement -Clinical Debridement Subcutaneous -Post Debridement Size (cm) - Length 6.5 -Post Debridement Size (cm) - Width 12.1 -Post Debridement Size (cm) - Depth 0.2 -Total Square Cm 78.65 -Wound/Ulcer Outcome Not Healed -Ulcer Cleansing Rinsed/ Irrigated with Saline -Foul Odor after Cleansing No -Bioengineered Tissue No -Bleeding Controlled with Pressure -Treatment Response Procedure Tolerated Well [See Physician Procedure note for Specifics] Pain Scale: 0-10 Numeric [Pain] -Is Patient Pain Free? Yes Musculoskeletal: No Tenderness to Palpation of Joints or Extremities, Muscle Wasting Neurological: - - Lack of epicritic sensation light touch bilateral lower extremities Psych/Mental Status: Normal Affect, Appropriate Debridement Note Post-Debridement Measurements/Treatment WC - Nurse 2 - General Ulcer CM Notes Start: 06/28/18 15:19 Freq: Status: Active Protocol: Activity Type Activity Date Activity User E-Sign Co-Sign Detail Recorded Client Recorded Date Recorded By Document 06/28/18 16:06 KATHLEEN [id number] 06/28/18 16:08 KATHLEEN 06/28/18 16:06 Wound Center Nurse 2 #7 R Lat Foot -Correct Patient No -Correct Side, Site, Position No -Correct Procedure No -Procedure Performed No #6 R Lat heel -Correct Patient No -Correct Side, Site, Position No -Correct Procedure No -Procedure Performed No #4 R Post Heel -Correct Patient No -Correct Side, Site, Position No -Correct Procedure No -Procedure Performed No #2 R Foot/Toes Cluster -Time 16:07 -Correct Patient Yes -Correct Side, Site, Position Yes -Correct Procedure Yes -Procedure Performed Yes -Type of Procedure Debridement -Clinical Debridement Subcutaneous -Post Debridement Size (cm) - Length 3.7 -Post Debridement Size (cm) - Width 2.1 -Post Debridement Size (cm) - Depth 0.2 -Total Square Cm 7.77 -Wound/Ulcer Outcome Not Healed -Ulcer Cleansing Rinsed/ Irrigated with Saline -Foul Odor after Cleansing No -Bioengineered Tissue No -Bleeding Controlled with Pressure -Treatment Response Procedure Tolerated Well #1 L Foot/Toes Amp Site -Time 16:07 -Correct Patient Yes -Correct Side, Site, Position Yes -Correct Procedure Yes -Procedure Performed Yes -Type of Procedure Debridement -Clinical Debridement Subcutaneous -Post Debridement Size (cm) - Length 6.5 -Post Debridement Size (cm) - Width 12.1 -Post Debridement Size (cm) - Depth 0.2 -Total Square Cm 78.65 -Wound/Ulcer Outcome Not Healed -Ulcer Cleansing Rinsed/ Irrigated with Saline -Foul Odor after Cleansing No -Bioengineered Tissue No -Bleeding Controlled with Pressure -Treatment Response Procedure Tolerated Well Pain Scale: 0-10 Numeric Is Patient Pain Free? Yes Wound debrided: dorsal forefoot Laterality: Right Wound Grade/Stage: grade 5 Type of Debridement: Excisional debridement Anesthesia Used: 4% Lidocaine Solution Depth: in the subcutaneous layer Percentage of wound debrided: 100 Instrument Used: #15 blade, - - Exposed bone and tendon were noted, and only subcutaneous tissue layer was debrided Tissue Removed: fibrous, devitalized subcutaneous, biofilm, slough Severity: Fat Layer Exposed Amount of bleeding with debridement: Mild Bleeding Controlled with: Pressure Patient tolerated procedure well - Additional Wound Wound debrided: distal forefoot at amputation site Laterality: Left Wound Grade/Stage: grade 4 Type of Debridement: Excisional debridement Anesthesia Used: 4% Lidocaine Solution Depth: in the subcutaneous layer Percentage of wound debrided: 100 Instrument Used: #15 blade, - - Exposed bone and tendon are noted but only subcutaneous tissue layer was debrided Tissue Removed: fibrous, devitalized subcutaneous, biofilm, slough Severity: Fat Layer Exposed Amount of bleeding with debridement: Mild Bleeding Controlled with: Pressure Patient tolerated procedure: Patient tolerated procedure well Assessment/Plan Active Problems (Last Reviewed 03/13/18 @ 15:16 by Suzanna Holland) Gangrene of right foot (Chronic) Gangrene of left foot (Chronic) Amputation of left foot with complication (Chronic) Type 2 diabetes mellitus with diabetic polyneuropathy (Chronic) Peripheral vascular disease (Chronic) Malnutrition (Chronic) Chronic ulcer of left foot with necrosis of bone (Chronic) Chronic ulcer of left foot with necrosis of muscle (Chronic) Histoplasma capsulatum pneumonia (Chronic) Assessment: Howard grade 4 with gangrene left and grade 5 right. grangrene bilateral. Diabetes with neuropathy. Peripheral vascular disease. Malnutrition. Gait impairment. Leukemia. Other comorbidities Plan: I reviewed and discussed the case with the patient and his family member today. Debridement was performed as noted in the clinical panel. He prefers to see a vascular surgeon in [place] and is amenable to see Dr. Nolan. He is scheduled for an arterial angiogram on June 30, 2018 with potential intervention. Pending on feedback and plan he will be considered either for advanced wound care product application to the left foot versus other surgical foot debridement versus a palliative care program.The left lower extremity was debrided excisionally to remove nonviable subcutaneous and muscle tissue if there was moist and non-adhered. His wound is progressing and I recommend a dressing change. I recommend applying Santyl to the right heel and dorsal right foot and to continue with Betadine gauze placed to the mummified toes on the right foot. I advised him to continue Santyl dressing changes to the left foot as previously done daily. Clinically he appears to be stable and there is no active wet gangrene or infection. Bilateral surgical shoes were dispensed previously to offload and protect the site it is okay to weight-bear to the heels for transfers or short duration to walk across a single room only in the senior living facility will be notified of this. I advised him again not to tighten the straps over the gangrenous portions of his forefoot bilateral. To continue with nutritional supplementation optimize healing; I recommend Gino 1-2 times daily if he is not already taking this. To monitor closely for local and systemic signs of illness which is not noted at this time. To keep pressure off of the heels while resting and lying in bed by floating the lower extremities over pillows. We reviewed the basics needed to promote wound healing and I answered all his questions. I recommend he follow- up in clinic in 1 week or call sooner if he has any questions or concerns.
[2018-07-05 15:39] VITALS: BP 83/36; PULSE 101; RESP 20; TEMP 36.6
--- NOTE | 2018-07-05 17:06 | PCM.WC.PN ---
(1) Chronic ulcer of left foot with necrosis of bone Status: Chronic Code(s): L97.524 - Non-pressure chronic ulcer of other part of left foot with necrosis of bone (2) Chronic ulcer of left foot with necrosis of muscle Status: Chronic Code(s): L97.523 - Non-pressure chronic ulcer of other part of left foot with necrosis of muscle (3) Gangrene of right foot Status: Chronic Code(s): I96 - Gangrene, not elsewhere classified (4) Gangrene of left foot Status: Chronic Code(s): I96 - Gangrene, not elsewhere classified (5) Amputation of left foot with complication Status: Chronic Qualifiers: Code(s): S98.912A - Complete traumatic amputation of left foot, level unspecified, initial encounter (6) Type 2 diabetes mellitus with diabetic polyneuropathy Status: Chronic Code(s): E11.42 - Type 2 diabetes mellitus with diabetic polyneuropathy (7) Peripheral vascular disease Status: Deleted Code(s): I73.9 - Peripheral vascular disease, unspecified (8) Malnutrition Status: Chronic Code(s): E46 - Unspecified protein-calorie malnutrition (9) Histoplasma capsulatum pneumonia Status: Chronic Code(s): B39.2 - Pulmonary histoplasmosis capsulati, unspecified Type of Wound Date of Service: 07/08/18 Chief Complaint: Gangrene to both feet with bilateral foot ulcers with fat tendon and bone exposed History of Wound: This 82-year-old male presents with bilateral foot gangrene. he was treated with IV antibiotics under the management of infectious disease. He also relates he had some vascular surgery workup. He did complete his vascular surgery consultation with Dr. Nolan and an angiogram with intervention was performed. Contralateral limb vascular intervention will next the scheduled implant. He is with the family member today. He denies recent trauma. He wears protective surgical shoes today and is only placing partial weight while transferring. He presents in a wheelchair today. He has been very diligent about offloading the heel ulcer site which is the most painful. Progress of Wound: Stable bilateral - Physical Exam Vital Signs Temp Pulse Resp BP 97.8 F 101 H 20 H 83/36 L 07/05/18 15:39 07/05/18 15:39 07/05/18 15:39 07/05/18 15:39 General: Alert, Oriented x3, Cooperative HEENT: Atraumatic Extremities: No Calf Tenderness - Negative Augustine and Weaver bilateral, Diminished Peripheral Pulses, Edema - Mild bilateral, Tenderness - No tenderness with wound or gangrene manipulation, - - Devitalized left open transmetatarsal amputation site with exposed bone and tendon. There is increased granulation tissue noted at this site and distal fibrous tissue maceration continued. The right lower extremity has dry mummified toes with progressive gangrene to the more proximal aspect of the toe now that is new. There is moisture to the first interspace on the right foot. The dry stable eschar is continued to the right posterior heel slightly to the right lateral foot. There is no purulence, odor, streaking, acute infection or new wounds to bilateral lower extremities. The peripheral skin is hairless atrophic bilateral Skin: Ulcer/ Wound, - - As above the skin is hairless bilateral lower extremities Wound Measurements and Assessment WC - Nurse 1 - General Ulcer Measurement Start: 06/28/18 15:19 Freq: Status: Active Protocol: Activity Type Activity Date Activity User E-Sign Co-Sign Detail Recorded Client Recorded Date Recorded By Document 07/05/18 15:39 DL [id number] 07/05/18 15:58 DL 07/05/18 15:39 Wound Center Nurse 1 [Ulcer Assessment] #7 R Lat Foot -Current Size (cm) - Length 1.5 -Current Size (cm) - Width 1.5 -Total Square Cm 2.25 -Photo Taken No -Exudate Amt None Present (0 %) -Granulation Amt None Present (0 %) -Necrosis Amt Large (67-100%) -Necrotic Tissue Type Adherent Slough -Structure Exposed N/A -Texture (Tara-wound Skin Appearance) Localized Edema -Moisture (Tara-wound Skin Appearance No Abnormality ) -Color (Tara-wound Skin Appearance) Erythema Hemosiderin Staining Mottled -Temperature (Tara-wound Skin No Abnormality Appearance) (Pt Warm) -Tenderness on Palpation (Tara-wound Yes Skin Appearance) -Foul Odor after Cleansing No #4 R Heel -Current Size (cm) - Length 9.1 -Current Size (cm) - Width 4.2 -Current Size (cm) - Depth 0.2 -Total Square Cm 38.22 -Photo Taken No -Exudate Amt Small (1-33%) -Exudate Type Serosanguineous -Wound Margin Thickened -Granulation Amt None Present (0 %) -Necrosis Amt Large (67-100%) -Necrotic Tissue Type Eschar -Structure Exposed N/A -Texture (Tara-wound Skin Appearance) Localized Edema -Moisture (Tara-wound Skin Appearance No Abnormality ) -Color (Tara-wound Skin Appearance) Erythema Hemosiderin Staining Mottled -Temperature (Tara-wound Skin No Abnormality Appearance) (Pt Warm) -Ulcer Cleansing Rinsed/ Irrigated with Saline -Foul Odor after Cleansing No -Anesthetic Used 4% Lidocaine Solution #2 R Foot/Toes Cluster -Current Size (cm) - Length 2.5 -Current Size (cm) - Width 3.3 -Current Size (cm) - Depth 0.2 -Total Square Cm 8.25 -Photo Taken No -Exudate Amt Medium (34-66%) -Exudate Type Serosanguineous -Wound Margin Thickened -Granulation Amt None Present (0 %) -Necrosis Amt Large (67-100%) -Necrotic Tissue Type Eschar -Structure Exposed Tendon Fascia -Texture (Tara-wound Skin Appearance) Scarring -Moisture (Tara-wound Skin Appearance No Abnormality ) -Color (Tara-wound Skin Appearance) Erythema Hemosiderin Staining Mottled -Temperature (Tara-wound Skin No Abnormality Appearance) (Pt Warm) -Tenderness on Palpation (Tara-wound Yes Skin Appearance) -Ulcer Cleansing Wound Cleanser -Anesthetic Used 4% Lidocaine Solution #1 L Foot/Toes Amp Site -Current Size (cm) - Length 7 -Current Size (cm) - Width 11.2 -Current Size (cm) - Depth 0.5 -Total Square Cm 78.4 -Photo Taken No -Exudate Amt Large (67-100%) -Exudate Type Serosanguineous -Wound Margin Distinct, Outline Attached -Granulation Amt Medium (34-66%) -Granulation Quality Red -Necrosis Amt Medium (34-66%) -Necrotic Tissue Type Adherent Slough -Structure Exposed Fascia -Texture (Tara-wound Skin Appearance) Scarring -Moisture (Tara-wound Skin Appearance No Abnormality ) -Color (Tara-wound Skin Appearance) Erythema Hemosiderin Staining Mottled -Temperature (Tara-wound Skin No Abnormality Appearance) (Pt Warm) -Tenderness on Palpation (Tara-wound Yes Skin Appearance) -Ulcer Cleansing Wound Cleanser -Foul Odor after Cleansing Yes -Anesthetic Used 4% Lidocaine Solution WC - Nurse 2 - General Ulcer CM Notes Start: 06/28/18 15:19 Freq: Status: Active Protocol: Activity Type Activity Date Activity User E-Sign Co-Sign Detail Recorded Client Recorded Date Recorded By Document 07/05/18 16:44 [id number] 07/05/18 16:47 07/05/18 16:44 Wound Center Nurse 2 [Procedure/Treatment] #7 R Lat Foot -Time 16:44 -Correct Patient Yes -Correct Side, Site, Position Yes -Correct Procedure Yes -Procedure Performed Yes -Post Debridement Size (cm) - Length 1.5 -Post Debridement Size (cm) - Width 1.5 -Post Debridement Size (cm) - Depth 0.2 -Total Square Cm 2.25 -Wound/Ulcer Outcome Not Healed -Ulcer Cleansing Rinsed/ Irrigated with Saline -Foul Odor after Cleansing No -Bioengineered Tissue No -Topical Lidocaine (%) 4 -Bleeding Controlled with NA -Treatment Response Procedure Tolerated Well #4 R Heel -Time 16:44 -Correct Patient Yes -Correct Side, Site, Position Yes -Correct Procedure Yes -Procedure Performed Yes -Post Debridement Size (cm) - Length 9.1 -Post Debridement Size (cm) - Width 4.2 -Post Debridement Size (cm) - Depth 0.2 -Total Square Cm 38.22 -Wound/Ulcer Outcome Not Healed -Ulcer Cleansing Rinsed/ Irrigated with Saline -Foul Odor after Cleansing No -Bioengineered Tissue No -Topical Lidocaine (%) 4 -Bleeding Controlled with NA -Treatment Response Procedure Tolerated Well #2 R Foot/Toes Cluster -Time 16:45 -Correct Patient Yes -Correct Side, Site, Position Yes -Correct Procedure Yes -Procedure Performed Yes -Type of Procedure Debridement -Clinical Debridement Subcutaneous -Post Debridement Size (cm) - Length 2.6 -Post Debridement Size (cm) - Width 3.4 -Post Debridement Size (cm) - Depth 0.2 -Total Square Cm 8.84 -Wound/Ulcer Outcome Not Healed -Ulcer Cleansing Rinsed/ Irrigated with Saline -Foul Odor after Cleansing No -Bioengineered Tissue No -Topical Lidocaine (%) 4 -Bleeding Controlled with Pressure -Treatment Response Procedure Tolerated Well #1 L Foot/Toes Amp Site -Time 16:45 -Correct Patient Yes -Correct Side, Site, Position Yes -Correct Procedure Yes -Procedure Performed Yes -Type of Procedure Debridement -Clinical Debridement Subcutaneous -Post Debridement Size (cm) - Length 7.1 -Post Debridement Size (cm) - Width 11.3 -Post Debridement Size (cm) - Depth 0.5 -Total Square Cm 80.23 -Wound/Ulcer Outcome Not Healed -Ulcer Cleansing Rinsed/ Irrigated with Saline -Foul Odor after Cleansing No -Bioengineered Tissue No -Topical Lidocaine (%) 4 -Bleeding Controlled with Pressure -Treatment Response Procedure Tolerated Well [See Physician Procedure note for Specifics] Pain Scale: 0-10 Numeric [Pain] -Is Patient Pain Free? Yes Musculoskeletal: No Tenderness to Palpation of Joints or Extremities, Muscle Wasting, - - Wheelchair assisted gait noted Neurological: - - Diminished touch bilateral lower extremities Psych/Mental Status: Normal Affect, Appropriate Debridement Note Post-Debridement Measurements/Treatment WC - Nurse 2 - General Ulcer CM Notes Start: 06/28/18 15:19 Freq: Status: Active Protocol: Activity Type Activity Date Activity User E-Sign Co-Sign Detail Recorded Client Recorded Date Recorded By Document 06/28/18 16:06 [id number] 06/28/18 16:08 Document 07/05/18 16:44 [id number] 07/05/18 16:47 06/28/18 07/05/18 16:06 16:44 Wound Center Nurse 2 #7 R Lat Foot -Time 16:44 -Correct Patient No Yes -Correct Side, Site, Position No Yes -Correct Procedure No Yes -Procedure Performed No Yes -Post Debridement Size (cm) - Length 1.5 -Post Debridement Size (cm) - Width 1.5 -Post Debridement Size (cm) - Depth 0.2 -Total Square Cm 2.25 -Wound/Ulcer Outcome Not Healed -Ulcer Cleansing Rinsed/ Irrigated with Saline -Foul Odor after Cleansing No -Bioengineered Tissue No -Topical Lidocaine (%) 4 -Bleeding Controlled with NA -Treatment Response Procedure Tolerated Well #6 R Lat heel -Correct Patient No -Correct Side, Site, Position No -Correct Procedure No -Procedure Performed No #4 R Heel -Time 16:44 -Correct Patient No Yes -Correct Side, Site, Position No Yes -Correct Procedure No Yes -Procedure Performed No Yes -Post Debridement Size (cm) - Length 9.1 -Post Debridement Size (cm) - Width 4.2 -Post Debridement Size (cm) - Depth 0.2 -Total Square Cm 38.22 -Wound/Ulcer Outcome Not Healed -Ulcer Cleansing Rinsed/ Irrigated with Saline -Foul Odor after Cleansing No -Bioengineered Tissue No -Topical Lidocaine (%) 4 -Bleeding Controlled with NA -Treatment Response Procedure Tolerated Well #2 R Foot/Toes Cluster -Time 16: 16:45 -Correct Patient Yes Yes -Correct Side, Site, Position Yes Yes -Correct Procedure Yes Yes -Procedure Performed Yes Yes -Type of Procedure Debridement Debridement -Clinical Debridement Subcutaneous Subcutaneous -Post Debridement Size (cm) - Length 3.7 2.6 -Post Debridement Size (cm) - Width 2.1 3.4 -Post Debridement Size (cm) - Depth 0.2 0.2 -Total Square Cm 7.77 8.84 -Wound/Ulcer Outcome Not Healed Not Healed -Ulcer Cleansing Rinsed/ Rinsed/ Irrigated with Irrigated with Saline Saline -Foul Odor after Cleansing No No -Bioengineered Tissue No No -Topical Lidocaine (%) 4 -Bleeding Controlled with Pressure Pressure -Treatment Response Procedure Procedure Tolerated Well Tolerated Well #1 L Foot/Toes Amp Site -Time 16:07 16:45 -Correct Patient Yes Yes -Correct Side, Site, Position Yes Yes -Correct Procedure Yes Yes -Procedure Performed Yes Yes -Type of Procedure Debridement Debridement -Clinical Debridement Subcutaneous Subcutaneous -Post Debridement Size (cm) - Length 6.5 7.1 -Post Debridement Size (cm) - Width 12.1 11.3 -Post Debridement Size (cm) - Depth 0.2 0.5 -Total Square Cm 78.65 80.23 -Wound/Ulcer Outcome Not Healed Not Healed -Ulcer Cleansing Rinsed/ Rinsed/ Irrigated with Irrigated with Saline Saline -Foul Odor after Cleansing No No -Bioengineered Tissue No No -Topical Lidocaine (%) 4 -Bleeding Controlled with Pressure Pressure -Treatment Response Procedure Procedure Tolerated Well Tolerated Well Pain Scale: 0-10 Numeric Is Patient Pain Free? Yes Yes Wound debrided: Dorsal foot Laterality: Left Wound Grade/Stage: grade 4 Type of Debridement: Excisional debridement Anesthesia Used: 4% Lidocaine Solution Depth: in the subcutaneous layer Percentage of wound debrided: 100 Instrument Used: #15 blade, Forceps Tissue Removed: fibrous, devitalized subcutaneous, biofilm, slough Severity: Fat Layer Exposed Amount of bleeding with debridement: Mild Bleeding Controlled with: Pressure Patient tolerated procedure well - Additional Wound Wound debrided: dorsal forefoot Laterality: Right Wound Grade/Stage: grade 5 Type of Debridement: Excisional debridement Anesthesia Used: 4% Lidocaine Solution Depth: in the subcutaneous layer Percentage of wound debrided: 100 Instrument Used: #15 blade Tissue Removed: fibrous, devitalized subcutaneous, biofilm, slough, non adhered moist gangr Severity: Fat Layer Exposed Amount of bleeding with debridement: Mild Bleeding Controlled with: Pressure Patient tolerated procedure: Patient tolerated procedure well Assessment/Plan Assessment: Howard grade 4 with gangrene left and grade 5 right. grangrene bilateral. Diabetes with neuropathy. Peripheral vascular disease. Malnutrition. Gait impairment. Leukemia. Other comorbidities Plan: I reviewed and discussed the case with the patient and his family member today. Debridement was performed as noted in the clinical panel. He prefers to see a vascular surgeon in [place] and is amenable to see Dr. Nolan. He had intervention to the right limb and has a scheduled left limb intervention; I will request these medical records for further review. Pending on feedback and plan he will be considered either for advanced wound care product application to the left foot versus other surgical foot debridement versus a palliative care program.The left lower extremity was debrided excisionally to remove nonviable subcutaneous if it was moist and non-adhered. I recommend applying Santyl to the right heel dorsal left foot, and continue with Betadine gauze placed to the mummified toes on the right foot and dorsal right foot. Clinically he appears to be stable and there is no active wet gangrene or infection. He understands need to be monitored very close especially after he was recently revascularized; this dry gangrene may turn white which is not noted today. Bilateral surgical shoes were dispensed previously to offload and protect the site it is okay to weight-bear to the heels for transfers or short duration to walk across a single room only in the nursing home facility will be notified of this. I advised him again not to tighten the straps over the gangrenous portions of his forefoot bilateral. To continue with nutritional supplementation optimize healing; I recommend Gino 1-2 times daily if he is not already taking this. To monitor closely for local and systemic signs of illness which is not noted at this time. To keep pressure off of the heels while resting and lying in bed by floating the lower extremities over pillows. We reviewed the basics needed to promote wound healing and I answered all his questions. I recommend he follow-up in clinic in 1 week or call sooner if he has any questions or concerns.
== END 2018-07-28 23:59 ==
LOC: WC 15:30
PROVIDERS: Family Provider Family Medicine Geriatric Medicine; PCP Family Medicine Geriatric Medicine; Visit Provider Podiatrist
DX: E11.621 Type 2 diabetes mellitus with foot ulcer (principal); E11.42 Type 2 diabetes mellitus with diabetic polyneuropathy; E11.52 Type 2 diabetes mellitus with diabetic peripheral angiopathy with gangrene; L97.522 Non-pressure chronic ulcer of other part of left foot with fat layer exposed; L97.512 Non-pressure chronic ulcer of other part of right foot with fat layer exposed; E11.51 Type 2 diabetes mellitus with diabetic peripheral angiopathy without gangrene
CPT/HCPCS: 11042; 11045; 97602

== ENCOUNTER → 2018-07-20 12:18 | Outpatient (CLI) | payer SELFPAY | PROVIDERS: Family Provider Family Medicine Geriatric Medicine; PCP Family Medicine Geriatric Medicine | DX: C91.10 Chronic lymphocytic leukemia of B-cell type not having achieved remission (principal); B39.9 Histoplasmosis, unspecified; I73.9 Peripheral vascular disease, unspecified | CPT/HCPCS: 87070; 87077; 87186; 87205 ==